=== PATIENT | male | born 1940 | race Caucasian/White ===

== ENCOUNTER → 2023-07-31 09:41 | Outpatient (REF) | payer MEDICARE, OTHER, SELFPAY ==
[2023-07-31 10:30] LABS: % Basophils 0.9 % (0-2); % Eosinophils 1.5 % (0-6); % Immature Granulocytes 0.5 % (0-0.5); % Lymphocytes 19.6 % (20.5-51.1); % Monocytes 9.4 % (1.7-9.3); % Neutrophils 68.1 % (42.2-75.2); Absolute Basophils 0.1 10^3/uL (0-0.2); Absolute Eosinophils 0.1 10^3/uL (0-0.7); Absolute Lymphocytes 1.5 10^3/uL (1.2-3.4); Absolute Monocytes 0.7 10^3/uL (0.1-0.6); Absolute Neutrophils 5.1 10^3/uL (1.4-6.5); Hematocrit 42.7 % (39.0-52.0); Hemoglobin 14.4 g/dL (13.0-18.0); Mean Corp Hgb Conc. 33.7 g/dL (33.0-37.0); Mean Corpuscular Hgb 31.2 pg (27.0-31.0); Mean Corpuscular Volume 92.4 fL (80.0-94.0); Mean Platelet Volume 9.5 fL (7.4-10.4); Nucleated Red Blood Cells % 0 % (-); Platelet Count 194 10^3/uL (130-400); Red Blood Cell Count 4.62 10^6/uL (4.70-6.10); Red Cell Dist. Width 12.9 % (11.5-14.5); White Blood Cell Count 7.5 10^3/uL (4.8-10.8)
[2023-07-31 11:03] LABS: ALT (SGPT) 31 U/L (0-50); AST (SGOT) 33 U/L (17-59); Alkaline Phosphatase 75 U/L (38-126); Blood Urea Nitrogen 37 mg/dl (9-20); Calcium 9.6 mg/dl (8.4-10.2); Carbon Dioxide 25 mmol/L (22-30); Chloride 102 mmol/L (98-107); Glucose 109 mg/dl (70-99); Potassium 4.2 mmol/L (3.5-5.1); Sodium 135 mmol/L (135-145); Total Bilirubin 0.6 mg/dl (0.2-1.3); Total Protein 6.1 g/dl (6.3-8.2); eGFR 39.75
[2023-07-31 11:14] LABS: Erythrocyte Sed Rate 14 mm/hour (0-20)
== END ==
LOC: REG 09:41
PROVIDERS: ATTENDING PHYSICIAN Internal Medicine; FAMILY PHYSICIAN Family Medicine
DX: M35.3 Polymyalgia rheumatica (principal); Z51.81 Encounter for therapeutic drug level monitoring
CPT/HCPCS: 36415; 80053; 85025; 85652; 86140

== ENCOUNTER → 2023-08-06 07:31 | Outpatient (REF) | payer MEDICARE, OTHER, SELFPAY | LOC: EMG 07:31 | PROVIDERS: ATTENDING PHYSICIAN Nurse Practitioner Family; FAMILY PHYSICIAN Family Medicine | DX: R20.2 Paresthesia of skin (principal); R20.0 Anesthesia of skin | CPT/HCPCS: 95886; 95911 ==

== ENCOUNTER → 2023-08-06 10:33 | Outpatient (REF) | payer MEDICARE, OTHER, SELFPAY | LOC: RAD 10:33 | PROVIDERS: ATTENDING PHYSICIAN Nurse Practitioner Family | DX: M25.471 Effusion, right ankle (principal) | CPT/HCPCS: 73610 ==

== ENCOUNTER → 2023-09-01 10:41 | Outpatient (REF) | payer MEDICARE, OTHER, SELFPAY ==
[2023-09-01 10:13] LABS: ALT (SGPT) 29 U/L (0-50); AST (SGOT) 35 U/L (17-59); Albumin 4.4 g/dl (3.5-5.0); Alkaline Phosphatase 71 U/L (38-126); Blood Urea Nitrogen 36 mg/dl (9-20); Carbon Dioxide 25 mmol/L (22-30); Chloride 102 mmol/L (98-107); Glucose 111 mg/dl (70-99); Potassium 4.9 mmol/L (3.5-5.1); Sodium 137 mmol/L (135-145); Total Bilirubin 0.9 mg/dl (0.2-1.3); Total Protein 6.8 g/dl (6.3-8.2); eGFR 34.79
[2023-09-01 10:53] LABS: TSH 0.58 uIU/ml (0.47-4.68)
== END ==
LOC: PAVMRI 10:41
PROVIDERS: ATTENDING PHYSICIAN Nurse Practitioner Family; FAMILY PHYSICIAN Family Medicine; OTHER PHYSICIAN Emergency Medicine Emergency Medical Services; REFERRING PHYSICIAN Internal Medicine Endocrinology, Diabetes & Metabolism
DX: R20.2 Paresthesia of skin (principal); M51.36 Other intervertebral disc degeneration, lumbar region; M19.90 Unspecified osteoarthritis, unspecified site; R73.03 Prediabetes; E06.3 Autoimmune thyroiditis
CPT/HCPCS: 36415; 72158; 72197; 73630; 80053; 83036; 84443; A9575

== ENCOUNTER → 2023-10-06 11:07 | Outpatient (REF) | payer MEDICARE, OTHER, SELFPAY ==
[2023-10-06 12:09] LABS: Hematocrit 45.3 % (39.0-52.0); Hemoglobin 15.3 g/dL (13.0-18.0)
[2023-10-06 12:33] LABS: Albumin 4.2 g/dl (3.5-5.0); Blood Urea Nitrogen 33 mg/dl (9-20); Calcium 9.4 mg/dl (8.4-10.2); Carbon Dioxide 22 mmol/L (22-30); Chloride 108 mmol/L (98-107); Glucose 209 mg/dl (70-99); Magnesium 1.8 mg/dl (1.6-2.3); Phosphorus 3.1 mg/dl (2.5-4.5); Potassium 3.9 mmol/L (3.5-5.1); Sodium 139 mmol/L (135-145); eGFR 45.91
[2023-10-06 12:57] LABS: Intact PTH 40.1 pg/ml (13.6-85.8)
[2023-10-06 13:05] LABS: Protein/creatinine Ratio 0.2; Urine Protein 14 mg/dl
== END ==
LOC: REG 11:07
PROVIDERS: ATTENDING PHYSICIAN Specialist; FAMILY PHYSICIAN Family Medicine
DX: R79.89 Other specified abnormal findings of blood chemistry (principal)
CPT/HCPCS: 36415; 80069; 82570; 83735; 83970; 84156; 85014; 85018

== ENCOUNTER 2023-11-04 20:48 | Emergency (ER) | payer MEDICARE, OTHER, SELFPAY ==
[2023-11-04 20:58] VITALS: BMI 24.4
[2023-11-04 21:00] VITALS: BP 173/82
--- NOTE | 2023-11-04 21:06 | ED.GENMED ---
History of Present Illness
General
Chief Complaint: Male Genito-Urinary Symptoms
Time Seen by Provider: 11/04/23 20:54
History of Present Illness
History of Present Illness:
HPI: The patient presents with left-sided testicular pain. The pain radiates toward the left inguinal region. He has had no fevers or chills. This started around 4 PM today. He has no other significant symptoms.
EXAM:
GENERAL: Well appearing in no distress
HEENT: Moist oral mucosa
ABDOMEN: Soft with no peritoneal signs, no tenderness
: There is moderate testicular and left epididymal tenderness, there is some very mild tenderness in the left inguinal region with no palpable hernia
NEUROLOGIC: Good strength all extremities, no coordination deficits,
PSYCHIATRIC: Appropriate mental status, normal insight and judgement, mild cognitive deficits noted
EXTREMITIES: Nontender, no edema, moves all extremities equally
SKIN: No rash, no lesions
TIME OF INITIAL ENCOUNTER: 9 PM
NUMBER AND COMPLEXITY OF PROBLEMS ADDRESSED AT THE ENCOUNTER
� Chronic conditions affecting care: Dementia, aortic stenosis, atrial fibrillation, cardiomyopathy, CAD, CKD
� Acute Exacerbation and/or Progression of Chronic Illness: This is an acute problem
� Differential Diagnosis includes: Epididymitis, orchitis, testicular torsion unlikely, hydrocele, varicocele
AMOUNT AND/OR COMPLEXITY OF DATA TO BE REVIEWED AND ANALYZED
� I performed an independent evaluation of and my interpretation is:
EKG:
CT:
X-rays:
Laboratory Studies:
Other: Ultrasound imaging shows evidence of epididymitis
� Review of other/old records: I reviewed old records, GFR ranges between 30s and 40s
� Clinical information was obtained by an independent historian: I spoke to his daughter at bedside
� Prescriptions/Medications Considered but not given: Considered quinolone however the patient is still on Coumadin and has impaired renal function
� Further testing considered but not performed:
RISK OF COMPLICATIONS AND/OR MORBIDITY OR MORTALITY OF PATIENT MANAGEMENT
� Social determinants of health affecting care: Lives at home
� Discussion with other providers:
� Escalation of care including admission/observation vs risk of discharge considered: Exam and imaging consistent with epididymitis. Will start doxycycline.
Past History
Past History
ED Past Medical History: Arrthythmia (Atrial fibrillation), CAD, CVA, HTN, Hypercholesterolemia, Renal failure, Hypothyroidism and Other (Kidney stones, sleep apnea, aortic valve replacement, diverticulosis)
ED Past Surgical History: Cardiac (Aortic valve replacement)
Social History
Tobacco: Non-smoker
Alcohol: None
Drug: None
Personal:
Living: with family
Employment: Retired (emergency department physician)
Family History
Family History: Other (Reviewed and Noncontributory)
Phy Exam
Physical Exam
Physical Exam:
See HPI
Course
Orders/Labs/Results
Orders:
Orders
11/04/23 20:55
US Scrotum Urgent
Comment:
Reason For Exam: pain
11/04/23 22:05
Doxycycline [Vibramycin] 100 mg PO NOW STA
Vital Signs
Initial and Last Documented VS:
Initial Vital Signs
Pulse Resp
62 14
11/04/23 20:57 11/04/23 20:57
Last Documented Vital Signs
Pulse Resp BP Pulse Ox
79 19 173/82 99
11/04/23 21:00 11/04/23 21:00 11/04/23 21:00 11/04/23 21:00
*Critical Care Note
Total Time (30-74mins, 75-104mins- exclusive of procedures): Not Applicable
ED Attending Note
-
Portions of this chart may have been created with voice recognition software.� Occasional wrong word or��sound alike� substitutions may have occurred due to the inherent limitations of voice recognition software.
Discharge Plan
Departure
Patient Disposition: Home (Routine Discharge)
Date of Disposition: 11/04/23
Time of Disposition: 22:08
Patient with high blood pressure during this ER visit?: Yes
Discharge Problem:
Acute epididymitis
Instructions: Epididymitis and orchitis
Prescriptions:
New
doxycycline monohydrate 100 mg tablet
100 mg PO BID Qty: 14 0RF
No Action
allopurinol 100 MG tablet
300 mg PO DAILY
diltiazem HCl 120 MG capsule,extended release 12 hr
120 mg PO BID
colchicine [Colcrys] 0.6 MG tablet
0.6 mg PO PRN PRN (Reason: gout flare)
cholecalciferol (vitamin D3) [Vitamin D3] 1,000 UNIT capsule
4,000 unit PO DAILY
tamsulosin [Flomax] 0.4 mg Capsule
0.4 mg PO DAILY
levothyroxine [Synthroid] 125 mcg Tablet
125 mcg PO DAILY
warfarin 2 mg Tablet
2 mg PO DAILY
Repatha Syringe 140 mg/mL Syringe
140 mg SC Q2W
Rx Instructions:
Next dose 10/23/2022
hydrocodone-acetaminophen 5-325 mg Tablet
1 tab PO Q6H PRN (Reason: back pain)
enoxaparin [Lovenox] 80 mg/0.8 mL Syringe
80 mg SC DAILY
Rx Instructions:
started this medication just for surgery
polyethylene glycol 3350 [Miralax] 17 gram/dose powder
4 g PO DAILY PRN (Reason: Constipation) Qty: 119 0RF
acetaminophen [Tylenol Extra Strength] 500 mg tablet
1,000 mg PO Q6HPRN PRN (Reason: mild pain) Qty: 1 0RF
Referrals:
Baldemar Keller MD [Active] - Follow up in 2-3 days
Activity Restrictions/Additional Instructions:
Ultrasound imaging shows evidence of mild epididymitis. I am placing on doxycycline. Return here if worse. I have given you the contact information for local urologist.
Interventions
Interventions:
*General Assessment Last Done: 11/04/23 21:02
Discharge Date and Time
Print Language: ROMANIAN
[2023-11-04] MEDS: VIBRAMYCIN 100 MG PO (22:19)
[2023-11-04 22:21] VITALS: BP 167/91
[2023-11-04 22:40] VITALS: BP 167/91
== END 2023-11-04 22:42 | disposition home or self-care (01) ==
LOC: EMR 20:48
PROVIDERS: EMERGENCY PHYSICIAN Emergency Medicine; FAMILY PHYSICIAN Family Medicine
DX: N45.1 Epididymitis (principal); E03.9 Hypothyroidism, unspecified; E78.00 Pure hypercholesterolemia, unspecified; G47.30 Sleep apnea, unspecified; I12.9 Hypertensive chronic kidney disease with stage 1 through stage 4 chronic kidney disease, or unspecified chronic kidney disease; N18.9 Chronic kidney disease, unspecified; I25.10 Atherosclerotic heart disease of native coronary artery without angina pectoris; I48.91 Unspecified atrial fibrillation; Z86.73 Personal history of transient ischemic attack (TIA), and cerebral infarction without residual deficits; Z87.442 Personal history of urinary calculi; Z95.2 Presence of prosthetic heart valve
CPT/HCPCS: 99284; 76870; 93976

== ENCOUNTER → 2023-12-03 11:15 | Outpatient (REF) | payer MEDICARE, OTHER, SELFPAY | LOC: HWRCS 11:15 | PROVIDERS: ATTENDING PHYSICIAN Internal Medicine Cardiovascular Disease; FAMILY PHYSICIAN Family Medicine | DX: I10 Essential (primary) hypertension (principal); R07.9 Chest pain, unspecified | CPT/HCPCS: 93306 ==

== ENCOUNTER 2023-12-09 10:27 | Emergency (ER) | payer MEDICARE, OTHER, SELFPAY ==
[2023-12-09 10:36] VITALS: BP 176/97
--- NOTE | 2023-12-09 11:24 | ED.GENMED ---
History of Present Illness
<Jimmy Alvarez, DO - Last Filed: 12/09/23 13:43>
General
Chief Complaint: Cardiac Symptoms
Source: patient
Exam Limitations: none
Time Seen by Provider: 12/09/23 11:03
History of Present Illness
History of Present Illness:
See MDM
Past History
<Jimmy Alvarez, DO - Last Filed: 12/09/23 13:43>
Past History
ED Past Medical History: Arrthythmia (Atrial fibrillation), CAD, CVA, HTN, Hypercholesterolemia, Renal failure, Hypothyroidism and Other (Kidney stones, sleep apnea, aortic valve replacement, diverticulosis)
ED Past Surgical History: Cardiac (Aortic valve replacement)
Social History
Tobacco: Non-smoker
Alcohol: None
Drug: None
Personal:
Living: with family
Employment: Retired (emergency department physician)
Family History
Family History: Other (Reviewed and Noncontributory)
Phy Exam
<Jimmy Alvarez, DO - Last Filed: 12/09/23 13:43>
Physical Exam
Physical Exam:
See MDM
Course
<Jimmy Alvarez, DO - Last Filed: 12/09/23 13:43>
Orders/Labs/Results
Orders:
Orders
12/09/23 10:29
Electrocardiogram (*1) Urgent
Reason for Study: Tachycardia
12/09/23 10:30
EKG- Treatment ONCE
12/09/23 11:28
Consult Cardiology [CARDIOLOGY CONSULT] Urgent
Consulting Provider: Orville Painting
Was physician already notified: Yes
12/09/23 11:35
Complete Blood Count/With Diff Urgent
Comprehensive Metabolic Panel Urgent
PTT Urgent
Prothrombin Time Urgent
Troponin I Urgent
12/09/23 14:06
Troponin I Urgent
Abnormal Lab Results
12/09/23
11:35
MCH 31.2 H pg
(27.0-31.0)
Abs Immat Gran (auto) 0.1 H 10^3/uL
(0-0.05)
Absolute Neuts (auto) 8.4 H 10^3/uL
(1.4-6.5)
Absolute Lymphs (auto) 1.1 L 10^3/uL
(1.2-3.4)
Absolute Monos (auto) 0.8 H 10^3/uL
(0.1-0.6)
Immature Gran % 1.1 H %
(0-0.5)
Neutrophils % 79.6 H %
(42.2-75.2)
Lymphocytes % 10.2 L %
(20.5-51.1)
PT 24.5 H Sec
(11.4-14.6)
APTT 43.3 H Sec
(23.4-35.0)
Potassium 5.2 H mmol/L
(3.5-5.1)
BUN 44 H mg/dl
(9-20)
Creatinine 1.7 H mg/dL
(0.7-1.3)
Glucose 131 H mg/dl
(70-99)
ALT 58 H U/L
(0-50)
12/09/23 11:35
12/09/23 11:35
Vital Signs
Initial and Last Documented VS:
Initial Vital Signs
Temp Pulse Resp BP Pulse Ox
98.1 F 79 18 176/97 98
12/09/23 10:36 12/09/23 10:36 12/09/23 10:36 12/09/23 10:36 12/09/23 10:36
Last Documented Vital Signs
Temp Pulse Resp BP Pulse Ox
98.1 F 95 18 164/81 96
12/09/23 10:36 12/09/23 14:54 12/09/23 14:54 12/09/23 14:54 12/09/23 14:54
<Scottie Wells, DO - Last Filed: 12/09/23 14:59>
Orders/Labs/Results
Orders:
Orders
12/09/23 10:29
Electrocardiogram (*1) Urgent
Reason for Study: Tachycardia
12/09/23 10:30
EKG- Treatment ONCE
12/09/23 11:28
Consult Cardiology [CARDIOLOGY CONSULT] Urgent
Consulting Provider: Orville Painting
Was physician already notified: Yes
12/09/23 11:35
Complete Blood Count/With Diff Urgent
Comprehensive Metabolic Panel Urgent
PTT Urgent
Prothrombin Time Urgent
Troponin I Urgent
12/09/23 14:06
Troponin I Urgent
Abnormal Lab Results
12/09/23
11:35
MCH 31.2 H pg
(27.0-31.0)
Abs Immat Gran (auto) 0.1 H 10^3/uL
(0-0.05)
Absolute Neuts (auto) 8.4 H 10^3/uL
(1.4-6.5)
Absolute Lymphs (auto) 1.1 L 10^3/uL
(1.2-3.4)
Absolute Monos (auto) 0.8 H 10^3/uL
(0.1-0.6)
Immature Gran % 1.1 H %
(0-0.5)
Neutrophils % 79.6 H %
(42.2-75.2)
Lymphocytes % 10.2 L %
(20.5-51.1)
PT 24.5 H Sec
(11.4-14.6)
APTT 43.3 H Sec
(23.4-35.0)
Potassium 5.2 H mmol/L
(3.5-5.1)
BUN 44 H mg/dl
(9-20)
Creatinine 1.7 H mg/dL
(0.7-1.3)
Glucose 131 H mg/dl
(70-99)
ALT 58 H U/L
(0-50)
12/09/23 11:35
12/09/23 11:35
Vital Signs
Initial and Last Documented VS:
Initial Vital Signs
Temp Pulse Resp BP Pulse Ox
98.1 F 79 18 176/97 98
12/09/23 10:36 12/09/23 10:36 12/09/23 10:36 12/09/23 10:36 12/09/23 10:36
Last Documented Vital Signs
Temp Pulse Resp BP Pulse Ox
98.1 F 95 18 164/81 96
12/09/23 10:36 12/09/23 14:54 12/09/23 14:54 12/09/23 14:54 12/09/23 14:54
<Jimmy Alvarez, DO - Last Filed: 12/09/23 13:43>
MDM/Problems Addressed
Differential Diagnosis Includes:
HPI and MDM Narrative:
83-year-old male presenting for evaluation of exertional dyspnea. Patient admits that he has not been feeling well for a few weeks now. He does have a history of SVT, A-fib and CABG. Him and his profile trimmer are performing the outpatient workup.
He had an echo recently last week. He has a loop recorder and he is due for cardiac stress test tomorrow. However, patient became winded while walking the dog. He felt his heart rate go up. Once symptoms start to resolve, he walked home and felt
even worse. He came in for evaluation.
EKG is sinus rhythm. Patient appears comfortable. It is uncertain whether or not he is feeling his own stress test while walking or this is A-fib or SVT related. Regardless, obtain basic blood work and have cardiology evaluate
Physical exam
General: Well appearing and non-toxic
HEENT: protecting airway
Neck: appears supple
CV: No evidence of cyanosis. Regular rate and rhythm
Resp: No accessory muscle use. Lungs clear
Abd: Non-distended
Extremities: No deformities. No leg edema
Neuro: alert
Psych: Normal affect
Skin: Intact
Problems Addressed including Acute and Chronic Conditions affecting care:
1. Exertional dyspnea and tachycardia
Acuity: acute
Prognosis: stable
Details: Unsure if this is A-fib related or possibly coronary artery disease. He does have past medical history of both. Will have cardiology evaluate
Updates
Throughout his stay, patient in a sinus rhythm and symptom-free. Will have cardiology evaluate
Differential Diagnosis (but not limited to): A-fib, SVT, CAD
Testing considered: D-dimer but he is anticoagulated
Drug therapy (if applicable): OTC meds, please see d/c instruction regarding Rx drugs
Amount and/or Complexity of Data Reviewed
Clinical info obtained from: Patient
External data reviewed: N/A
Labs I independently reviewed (but not limited to): Troponin within normal limits
Radiology: N/A
Pulse Ox: not hypoxic
EKG independently reviewed: Sinus rhythm, right bundle branch block, no STEMI
Rn Transitional Care: Sinus rhythm
Critical Care: N/A
Risk of Complication:
Social Determinants of health: Good social support
Discussed with other providers: Cardiology
Escalation of Care includes Admit/Obs: After being observed in the Emergency Department, pt stable for discharge.
Occasional wrong word or 'sound a like' substitutions may have occurred due to the inherent limitations of voice recognition software. Read the chart carefully and recognize, using context, where substitutions have occurred.
<Jimmy Alvarez, DO - Last Filed: 12/09/23 13:43>
*Critical Care Note
Total Time (30-74mins, 75-104mins- exclusive of procedures): Not Applicable
<Scottie Wells, DO - Last Filed: 12/09/23 14:59>
Update Note
Update Note:
Patient seen by cardiology. Adjustments were made to his medication. Patient is to have a stress test tomorrow. Patient's loop recorder was interrogated and found to be fine. Patient will be discharged
ED Attending Note
<Jimmy Alvarez, DO - Last Filed: 12/09/23 13:43>
-
Portions of this chart may have been created with voice recognition software.� Occasional wrong word or��sound alike� substitutions may have occurred due to the inherent limitations of voice recognition software.
Discharge Plan
Departure
Patient Disposition: Home (Routine Discharge)
Date of Disposition: 12/09/23
Time of Disposition: 14:58
Patient with high blood pressure during this ER visit?: Yes
Condition: Fair
Covid-19: Not Applicable
Discharge Problem:
Exertional dyspnea, Tachycardia
Instructions: BLOOD PRESSURE
Prescriptions:
No Action
allopurinol 100 MG tablet
300 mg PO DAILY
diltiazem HCl 120 MG capsule,extended release 12 hr
120 mg PO BID
colchicine [Colcrys] 0.6 MG tablet
0.6 mg PO PRN PRN (Reason: gout flare)
cholecalciferol (vitamin D3) [Vitamin D3] 1,000 UNIT capsule
4,000 unit PO DAILY
tamsulosin [Flomax] 0.4 mg Capsule
0.4 mg PO DAILY
levothyroxine [Synthroid] 125 mcg Tablet
125 mcg PO DAILY
warfarin 2 mg Tablet
2 mg PO DAILY
Repatha Syringe 140 mg/mL Syringe
140 mg SC Q2W
Rx Instructions:
Next dose 10/23/2022
hydrocodone-acetaminophen 5-325 mg Tablet
1 tab PO Q6H PRN (Reason: back pain)
enoxaparin [Lovenox] 80 mg/0.8 mL Syringe
80 mg SC DAILY
Rx Instructions:
started this medication just for surgery
polyethylene glycol 3350 [Miralax] 17 gram/dose powder
4 g PO DAILY PRN (Reason: Constipation) Qty: 119 0RF
acetaminophen [Tylenol Extra Strength] 500 mg tablet
1,000 mg PO Q6HPRN PRN (Reason: mild pain) Qty: 1 0RF
doxycycline monohydrate 100 mg tablet
100 mg PO BID Qty: 14 0RF
Referrals:
Scottie Kapadia, DO [Family Provider] - As needed
Activity Restrictions/Additional Instructions:
Follow instructions by cardiology and have your stress test done tomorrow as scheduled.
Interventions
Interventions:
*Risk Screen - Suicide Last Done: 12/09/23 12:00
*General Assessment Last Done: 12/09/23 12:00
*Neglect/Abuse Screening Last Done: 12/09/23 12:00
ED- Pulmonary Assessment Last Done: 12/09/23 12:00
ED- Cardiac Assessment Last Done: 12/09/23 12:00
Discharge Date and Time
Print Language: ITALIAN
[2023-12-09 11:45] VITALS: BP 131/73
[2023-12-09 11:53] LABS: % Basophils 0.7 % (0-2); % Eosinophils 0.7 % (0-6); % Immature Granulocytes 1.1 % (0-0.5); % Lymphocytes 10.2 % (20.5-51.1); % Monocytes 7.7 % (1.7-9.3); % Neutrophils 79.6 % (42.2-75.2); Absolute Basophils 0.1 10^3/uL (0-0.2); Absolute Eosinophils 0.1 10^3/uL (0-0.7); Absolute Immature Granulocytes 0.1 10^3/uL (0-0.05); Absolute Lymphocytes 1.1 10^3/uL (1.2-3.4); Absolute Monocytes 0.8 10^3/uL (0.1-0.6); Absolute Neutrophils 8.4 10^3/uL (1.4-6.5); Hematocrit 44.2 % (39.0-52.0); Hemoglobin 15.3 g/dL (13.0-18.0); Mean Corp Hgb Conc. 34.6 g/dL (33.0-37.0); Mean Corpuscular Hgb 31.2 pg (27.0-31.0); Mean Platelet Volume 9.3 fL (7.4-10.4); Nucleated Red Blood Cells % 0 % (-); Platelet Count 170 10^3/uL (130-400); Red Blood Cell Count 4.91 10^6/uL (4.70-6.10); Red Cell Dist. Width 13.6 % (11.5-14.5); White Blood Cell Count 10.5 10^3/uL (4.8-10.8)
[2023-12-09 11:58] LABS: INR 2.18; PT 24.5 Sec (11.4-14.6)
[2023-12-09 11:59] LABS: APTT 43.3 Sec (23.4-35.0)
[2023-12-09 12:03] LABS: ALT (SGPT) 58 U/L (0-50); AST (SGOT) 40 U/L (17-59); Albumin 4.4 g/dl (3.5-5.0); Alkaline Phosphatase 67 U/L (38-126); Blood Urea Nitrogen 44 mg/dl (9-20); Calcium 9.9 mg/dl (8.4-10.2); Carbon Dioxide 26 mmol/L (22-30); Chloride 102 mmol/L (98-107); Glucose 131 mg/dl (70-99); Potassium 5.2 mmol/L (3.5-5.1); Sodium 139 mmol/L (135-145); Total Bilirubin 0.8 mg/dl (0.2-1.3); Total Protein 6.4 g/dl (6.3-8.2); eGFR 39.51
[2023-12-09 12:05] VITALS: BP 131/72
[2023-12-09 12:14] LABS: Troponin I 0.024 ng/ml
[2023-12-09 12:24] VITALS: BMI 25.2
[2023-12-09 13:00] VITALS: BP 141/79
[2023-12-09 14:00] VITALS: BP 147/77
[2023-12-09 14:41] LABS: Troponin I 0.012 ng/ml
[2023-12-09 14:54] VITALS: BP 164/81
--- NOTE | 2023-12-09 15:04 | CON.CAR ---
Addendum entered and electronically signed by Orville Painting MD 12/09/23 16:13:
I saw and examined the patient.
The Fine Arts Chair's note was reviewed and I agree with the note.
Comment:
GEN: No distress, awake, Ox3
HEENT: supple, anicteric, mmm
LUNGS: CTA, no wheezes/rales
CV: Reg, S1/S2, 1/6 syst LSB, no gallop
ABD: soft, BS+, NT/ND
EXT: No edema
NEURO: Gross non-focal
SKIN: No rash
Plan: He has a past medical history of AVR/CABG in 2010 along with paroxysmal atrial fibrillation. He presents today with palpitations, fatigue, and the leg aches while walking today. He denies any chest pains. 1 week ago he was started on
amlodipine 5 mg daily in addition to his usual dose of Cardizem. Echocardiogram had been performed this week and he is scheduled for a nuclear stress test December 10, 2023.
Cardi troponins are negative x 2. We interrogated his jot device which reveals no significant tachycardia events. He states his Fitbit was telling him his heart rate was elevated.
His blood pressure was low earlier today. We agreed to decrease his amlodipine to 2.5 mg daily and see if this helps his symptoms.
Continue medical therapy for coronary arteries for now. Continue warfarin, diltiazem and lower dose of amlodipine.
Continue Repatha for lipids.
Original Note:
Consultation
Consultation Request
Date/Time Consultation Requested: 12/09/23
Date/Time Consultation Performed: 12/09/23
Requesting Provider: Dr. Dial
Performing Provider: Dr. Painting
Reason for Consultation: Chest pain, elevated Troponin
Medical History
-
History of Present Illness:
Patient came to [facility] today after an episode of heart racing and feeling very unwell, cardiology consulted. Patient called the cardiology office 12/01/23 to report episodes of chest pain happening at rest and with exertion. Patient also reported HTN
home BP readings at that time. Dr. Zarco started patient on amlodipine 5 mg daily in addition to his usual dose of Cardizem CD 120 mg daily. Patient also had an echo as noted above. Patient scheduled for stress test 12/10/23. Patient checked his BP
before going on his walk this morning and it was 102/52 which is lower than usual. Patient then went on his walk and he suddenly felt unwell and checked his Fit Bit watch that read a HR of 177 bpm. Patient sat and rested and HR dropped to 77 bpm and
he felt better. Patient tried to walk again and HR went up to 180 bpm and he felt poorly again. Patient came to [facility]. Initial Troponin 0.024. ECG is SR. Patient with a h/o paroxysmal Afib and has a JOT in place from 11/2021.
PMH:
h/o HTN
Paroxysmal Afib
s/p PVI 05/25/18
Chronic warfarin OAC managed by [facility]
CAD s/p CABG DOLAN to LAD 01/28/11
s/p bioprosthetic aortic valve replacement 01/28/11
Gout
HTN
HLD
CKD stage 3
h/o CVA
PVCs
hypothyroidism
PMR
chronic RBBB
hx of remote CVA (right MCA)
Past Medical History
Past Medical History: Other (in HPI)
Past Surgical History: Cardiac (CABG and tissue AVR 2010, PVI 2018, [facility] JOT 12/23/21), Orthopedic and Tonsilectomy
Social History
Tobacco: Non-Smoker
Alcohol: None
Drug: None
Personal:
Living: With Family
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
Family History
Family History: CAD
Allergies / Home Medications
Allergy/AdvReac Type Severity Reaction Status Date / Time
pramipexole [From Mirapex] Allergy Confusion Verified 12/09/23 10:38
meperidine HCl [From Demerol] AdvReac Mild Nausea / Verified 12/09/23 10:38
Vomiting
�Medication �Instructions �Recorded �Confirmed �Type
allopurinol 100 mg tablet 300 mg PO DAILY 06/20/21 10/27/22 History
cholecalciferol (vitamin D3) 25 4,000 unit PO DAILY 06/20/21 10/27/22 History
mcg (1,000 unit) capsule (Vitamin
D3)
colchicine 0.6 mg tablet (Colcrys) 0.6 mg PO PRN PRN gout flare 06/20/21 10/27/22 History
diltiazem HCl 120 mg 120 mg PO BID 06/20/21 10/27/22 History
capsule,extended release 12 hr
tamsulosin 0.4 mg capsule (Flomax) 0.4 mg PO DAILY 08/10/22 10/27/22 History
evolocumab 140 mg/mL subcutaneous 140 mg SC Q2W 10/22/22 10/27/22 History
syringe (Repatha Syringe)
hydrocodone 5 mg-acetaminophen 325 1 tab PO Q6H PRN back pain 10/22/22 10/27/22 History
mg tablet
levothyroxine 125 mcg tablet 125 mcg PO DAILY 10/22/22 10/27/22 History
(Synthroid)
warfarin 2 mg tablet 2 mg PO DAILY 10/22/22 10/27/22 History
acetaminophen 500 mg tablet 1,000 mg (2 x 500 mg) PO Q6HPRN 10/27/22 Rx
(Tylenol Extra Strength) PRN mild pain #1 tab
enoxaparin 80 mg/0.8 mL 80 mg SC DAILY 10/27/22 10/27/22 History
subcutaneous syringe (Lovenox)
polyethylene glycol 3350 17 4 g PO DAILY PRN Constipation #119 10/27/22 Rx
gram/dose oral powder (Miralax) grams
doxycycline monohydrate 100 mg 100 mg PO BID #14 tabs 11/04/23 Rx
tablet
Review of Systems
-
History Source: Patient
All other systems: Negative unless noted
Physical Exam
Vital Signs
Temp Pulse Resp BP Pulse Ox
98.1 F 95 18 164/81 96
12/09/23 10:36 12/09/23 14:54 12/09/23 14:54 12/09/23 14:54 12/09/23 14:54
GEN: NAD. AAOx3
HEENT: EOMI, MMM
LUNGS: CTA B/L, no wheezes or rales
CV: Reg, S1/S2, no murmur
ABD: soft, BS+, NT, ND
EXT: No clubbing, cyanosis, lesions or edema B/L
NEURO: Gross non-focal
SKIN: Warm, dry and pink. No rash
Lab Results
12/09/23 11:35
12/09/23 11:35
Troponin I 0.012 ng/ml D 12/09/23 14:06
Impression / Plan
-
PCP: Dr. Kapadia
Primary Pit Inspector: Dr. IDALIA Zarco
Impression:
Palpitations, feeling ill 12/09/23
Hypotension
h/o HTN
Paroxysmal Afib
s/p PVI 05/25/18
Chronic warfarin OAC [facility] by [facility]
CAD s/p CABG DOLAN to LAD 01/28/11
s/p bioprosthetic aortic valve replacement 01/28/11
Gout
HTN
HLD
CKD stage 3
h/o CVA
PVCs
hypothyroidism
PMR
chronic RBBB
hx of remote CVA (right MCA)
Stress echo 12/2016: normal stress echo images, mild conc LVH, EF 60%, normal bioprosthetic aortic valve function, trace MR, 13 METS of activity, low risk study
Echo 11/21/19: EF 55-60%, normal RV size and function, mild MR, normal functioning bovine AVR with peak/mean 20/11 mmHg
Echo 12/03/23: 60-65%, mild conc LVH, normal RV size and function, mild MR, well seated tissue AVR peak/mean 21/13 mmHg and mild aortic regurgitation, mild TR with PAP 20-25 mmHg
PLAN:
-Patient came to [facility] today after an episode of heart racing and feeling very unwell, cardiology consulted. Patient called the cardiology office 12/01/23 to report episodes of chest pain happening at rest and with exertion. Patient also reported HTN
home BP readings at that time. Dr. Zarco started patient on amlodipine 5 mg daily in addition to his usual dose of Cardizem CD 120 mg daily. Patient also had an echo as noted above. Patient scheduled for stress test 12/10/23. Patient checked his BP
before going on his walk this morning and it was 102/52 which is lower than usual. Patient then went on his walk and he suddenly felt unwell and checked his Fit Bit watch that read a HR of 177 bpm. Patient sat and rested and HR dropped to 77 bpm and
he felt better. Patient tried to walk again and HR went up to 180 bpm and he felt poorly again. Patient came to [facility]. Initial Troponin 0.024. ECG is SR. Patient with a h/o paroxysmal Afib and has a JOT in place from 11/2021.
-[facility] rep able to check implanted loop recorder in the ER, no arrhythmia.
-BP stable throughout ER visit
-Decrease amlodipine to 2.5 mg daily.
-Keep outpatient stress test as scheduled for 12/10/23.
-Second Troponin down to 0.012. Patient can be d/c'd to home.
-Echo noted above
-Patient with a h/o paroxysmal Afib. He had 5 brief episodes of Afib with the longest lasting 50 minutes. INR therapeutic at 2.18.
== END 2023-12-09 15:05 | disposition home or self-care (01) ==
LOC: EMR 10:27
PROVIDERS: CONSULT PHYSICIAN Internal Medicine Cardiovascular Disease; EMERGENCY PHYSICIAN Student in an Organized Health Care Education/Training Program; FAMILY PHYSICIAN Family Medicine
DX: R06.09 Other forms of dyspnea (principal); I47.10 Supraventricular tachycardia, unspecified; I48.91 Unspecified atrial fibrillation; E03.9 Hypothyroidism, unspecified; E78.00 Pure hypercholesterolemia, unspecified; G47.30 Sleep apnea, unspecified; I12.9 Hypertensive chronic kidney disease with stage 1 through stage 4 chronic kidney disease, or unspecified chronic kidney disease; N18.30 Chronic kidney disease, stage 3 unspecified; I25.10 Atherosclerotic heart disease of native coronary artery without angina pectoris; Z79.01 Long term (current) use of anticoagulants; Z79.899 Other long term (current) drug therapy; Z82.49 Family history of ischemic heart disease and other diseases of the circulatory system; Z86.73 Personal history of transient ischemic attack (TIA), and cerebral infarction without residual deficits; Z87.442 Personal history of urinary calculi; Z95.1 Presence of aortocoronary bypass graft; Z95.3 Presence of xenogenic heart valve
CPT/HCPCS: 99283; 80053; 84484; 85025; 85610; 85730; 93005

== ENCOUNTER → 2023-12-10 06:25 | Outpatient (REF) | payer MEDICARE, OTHER, SELFPAY | LOC: RCS 06:25 | PROVIDERS: ATTENDING PHYSICIAN Internal Medicine Cardiovascular Disease; FAMILY PHYSICIAN Family Medicine | DX: I10 Essential (primary) hypertension (principal); R07.9 Chest pain, unspecified | CPT/HCPCS: 78452; 93017; A9500 ==

== ENCOUNTER → 2024-03-14 09:29 | Outpatient (REF) | payer MEDICARE, OTHER, SELFPAY ==
[2024-03-14 10:43] LABS: ALT (SGPT) 23 U/L (0-50); AST (SGOT) 24 U/L (17-59); Albumin 3.9 g/dl (3.5-5.0); Alkaline Phosphatase 60 U/L (38-126); Blood Urea Nitrogen 26 mg/dl (9-20); Calcium 9.2 mg/dl (8.4-10.2); Carbon Dioxide 25 mmol/L (22-30); Chloride 104 mmol/L (98-107); Glucose 105 mg/dl (70-99); HDL Cholesterol 43 mg/dl; LDL Cholesterol, Calculated 75 mg/dl; Potassium 4.3 mmol/L (3.5-5.1); Sodium 138 mmol/L (135-145); Total Bilirubin 0.7 mg/dl (0.2-1.3); Total Cholesterol 139 mg/dl (50-199); Triglyceride 105 mg/dl (10-149); Very Low Density Lipoprotein 21 mg/dl (0-30); eGFR 36.89
[2024-03-14 11:08] LABS: Glycohemoglobin (HgbA1c) 5.7 % (4.0-5.6)
[2024-03-14 11:14] LABS: TSH 0.78 uIU/ml (0.47-4.68)
== END ==
LOC: REG 09:29
PROVIDERS: ATTENDING PHYSICIAN Internal Medicine Endocrinology, Diabetes & Metabolism; FAMILY PHYSICIAN Family Medicine
DX: R73.03 Prediabetes (principal); E06.3 Autoimmune thyroiditis
CPT/HCPCS: 36415; 80053; 80061; 83036; 84443

== ENCOUNTER → 2024-03-18 07:34 | Outpatient (REF) | payer MEDICARE, OTHER, SELFPAY | LOC: MRI 07:34 | PROVIDERS: ATTENDING PHYSICIAN Radiology Diagnostic Radiology; FAMILY PHYSICIAN Family Medicine | DX: M54.16 Radiculopathy, lumbar region (principal); M25.551 Pain in right hip | CPT/HCPCS: 72148; 73721 ==

== ENCOUNTER → 2024-05-30 13:32 | Outpatient (REF) | payer MEDICARE, OTHER, SELFPAY ==
[2024-05-30 14:39] LABS: % Basophils 0.1 % (0-2); % Eosinophils 0.1 % (0-6); % Immature Granulocytes 0.9 % (0-0.5); % Lymphocytes 8.3 % (20.5-51.1); % Monocytes 5.5 % (1.7-9.3); % Neutrophils 85.1 % (42.2-75.2); Absolute Immature Granulocytes 0.1 10^3/uL (0-0.05); Absolute Lymphocytes 1.3 10^3/uL (1.2-3.4); Absolute Monocytes 0.8 10^3/uL (0.1-0.6); Absolute Neutrophils 12.9 10^3/uL (1.4-6.5); Hematocrit 46.4 % (39.0-52.0); Hemoglobin 15.7 g/dL (13.0-18.0); Mean Corp Hgb Conc. 33.8 g/dL (33.0-37.0); Mean Corpuscular Hgb 32.1 pg (27.0-31.0); Mean Corpuscular Volume 94.9 fL (80.0-94.0); Mean Platelet Volume 9.3 fL (7.4-10.4); Nucleated Red Blood Cells % 0 % (-); Platelet Count 166 10^3/uL (130-400); Red Blood Cell Count 4.89 10^6/uL (4.70-6.10); Red Cell Dist. Width 13.7 % (11.5-14.5); White Blood Cell Count 15.1 10^3/uL (4.8-10.8)
[2024-05-30 14:57] LABS: Erythrocyte Sed Rate 2 mm/hour (0-20)
[2024-05-30 15:05] LABS: ALT (SGPT) 25 U/L (0-50); AST (SGOT) 20 U/L (17-59); Albumin 3.9 g/dl (3.5-5.0); Alkaline Phosphatase 75 U/L (38-126); Blood Urea Nitrogen 50 mg/dl (9-20); Calcium 9.9 mg/dl (8.4-10.2); Carbon Dioxide 30 mmol/L (22-30); Chloride 101 mmol/L (98-107); Glucose 104 mg/dl (70-99); Potassium 5.1 mmol/L (3.5-5.1); Sodium 135 mmol/L (135-145); Total Bilirubin 1.3 mg/dl (0.2-1.3); Uric Acid 7.7 mg/dl (3.5-8.5); eGFR 42.49
[2024-05-30 15:08] LABS: C-Reactive Protein < 5.00 mg/L (0.0-10.00)
[2024-05-30 15:37] LABS: Hepatitis B Surface Antigen Negative (Negative)
[2024-05-30 15:55] LABS: Hepatitis B Core Ab, Total Negative (Negative); Hepatitis C Antibody Negative (Negative)
== END ==
LOC: REG 13:32
PROVIDERS: ATTENDING PHYSICIAN Internal Medicine; FAMILY PHYSICIAN Family Medicine
DX: K75.9 Inflammatory liver disease, unspecified (principal); M06.4 Inflammatory polyarthropathy; Z51.81 Encounter for therapeutic drug level monitoring; Z22.7 Latent tuberculosis
CPT/HCPCS: 36415; 80053; 84550; 85025; 85652; 86140; 86704; 86803; 87340

== ENCOUNTER → 2024-06-01 08:31 | Outpatient (REF) | payer MEDICARE, OTHER, SELFPAY ==
[2024-06-03 18:37] LABS: Quantiferon Mitogen minus NIL 6.76 IU/mL; Quantiferon TB Gold Plus Negative (Negative)
== END ==
LOC: REG 08:31
PROVIDERS: ATTENDING PHYSICIAN Internal Medicine; FAMILY PHYSICIAN Family Medicine
DX: K75.9 Inflammatory liver disease, unspecified (principal); M06.4 Inflammatory polyarthropathy; Z51.81 Encounter for therapeutic drug level monitoring; Z22.7 Latent tuberculosis; M10.9 Gout, unspecified
CPT/HCPCS: 36415; 86480

== ENCOUNTER → 2024-07-01 08:56 | Outpatient (REF) | payer MEDICARE, OTHER, SELFPAY ==
[2024-07-01 10:05] LABS: % Basophils 0.9 % (0-2); % Eosinophils 0.9 % (0-6); % Immature Granulocytes 1.8 % (0-0.5); % Lymphocytes 28.9 % (20.5-51.1); % Monocytes 8.4 % (1.7-9.3); % Neutrophils 59.1 % (42.2-75.2); Absolute Basophils 0.1 10^3/uL (0-0.2); Absolute Eosinophils 0.1 10^3/uL (0-0.7); Absolute Immature Granulocytes 0.1 10^3/uL (0-0.05); Absolute Lymphocytes 1.6 10^3/uL (1.2-3.4); Absolute Monocytes 0.5 10^3/uL (0.1-0.6); Absolute Neutrophils 3.2 10^3/uL (1.4-6.5); Hematocrit 43.8 % (39.0-52.0); Hemoglobin 14.6 g/dL (13.0-18.0); Mean Corp Hgb Conc. 33.3 g/dL (33.0-37.0); Mean Corpuscular Hgb 31.6 pg (27.0-31.0); Mean Corpuscular Volume 94.8 fL (80.0-94.0); Mean Platelet Volume 9.5 fL (7.4-10.4); Nucleated Red Blood Cells % 0 % (-); Platelet Count 145 10^3/uL (130-400); Red Blood Cell Count 4.62 10^6/uL (4.70-6.10); Red Cell Dist. Width 14.6 % (11.5-14.5); White Blood Cell Count 5.5 10^3/uL (4.8-10.8)
[2024-07-01 10:32] LABS: ALT (SGPT) 36 U/L (0-50); AST (SGOT) 24 U/L (17-59); Albumin 3.6 g/dl (3.5-5.0); Alkaline Phosphatase 70 U/L (38-126); Blood Urea Nitrogen 32 mg/dl (9-20); Calcium 9.1 mg/dl (8.4-10.2); Carbon Dioxide 29 mmol/L (22-30); Chloride 105 mmol/L (98-107); Glucose 112 mg/dl (70-99); Phosphorus 3.1 mg/dl (2.5-4.5); Potassium 4.5 mmol/L (3.5-5.1); Sodium 140 mmol/L (135-145); Total Bilirubin 0.5 mg/dl (0.2-1.3); Total Protein 5.6 g/dl (6.3-8.2); Uric Acid 8.6 mg/dl (3.5-8.5); eGFR 42.49
[2024-07-01 10:39] LABS: Protein/creatinine Ratio 0.1; Urine Protein 7 mg/dl
[2024-07-01 10:40] LABS: Erythrocyte Sed Rate 2 mm/hour (0-20)
[2024-07-01 10:53] LABS: Glycohemoglobin (HgbA1c) 6.2 % (4.0-5.6)
[2024-07-01 11:39] LABS: TSH 1.99 uIU/ml (0.47-4.68)
[2024-07-02 09:33] LABS: Intact PTH 73.6 pg/ml (13.6-85.8)
== END ==
LOC: REG 08:56
PROVIDERS: ATTENDING PHYSICIAN Internal Medicine Endocrinology, Diabetes & Metabolism; FAMILY PHYSICIAN Family Medicine; OTHER PHYSICIAN Internal Medicine; OTHER PHYSICIAN Specialist
DX: R73.03 Prediabetes (principal); E06.3 Autoimmune thyroiditis; Z51.81 Encounter for therapeutic drug level monitoring; M06.4 Inflammatory polyarthropathy; N18.32 Chronic kidney disease, stage 3b
CPT/HCPCS: 36415; 80053; 82570; 83036; 83970; 84100; 84156; 84443; 84550; 85025; 85652; 86140

== ENCOUNTER → 2024-07-19 10:56 | Outpatient (REF) | payer MEDICARE, OTHER, SELFPAY ==
[2024-07-19 13:12] LABS: C-Reactive Protein < 5.00 mg/L (0.0-10.00)
[2024-07-19 13:23] LABS: Erythrocyte Sed Rate 10 mm/hour (0-20)
== END ==
LOC: REG 10:56
PROVIDERS: ATTENDING PHYSICIAN Family Medicine; FAMILY PHYSICIAN Internal Medicine
DX: M35.3 Polymyalgia rheumatica (principal)
CPT/HCPCS: 36415; 85652; 86140

== ENCOUNTER → 2024-09-16 07:16 | Outpatient (REF) | payer MEDICARE, OTHER, SELFPAY ==
[2024-09-16 08:06] LABS: % Basophils 1.2 % (0-2); % Eosinophils 2.6 % (0-6); % Immature Granulocytes 0.3 % (0-0.5); % Lymphocytes 25.8 % (20.5-51.1); % Monocytes 10.9 % (1.7-9.3); % Neutrophils 59.2 % (42.2-75.2); Absolute Basophils 0.1 10^3/uL (0-0.2); Absolute Eosinophils 0.2 10^3/uL (0-0.7); Absolute Lymphocytes 1.7 10^3/uL (1.2-3.4); Absolute Monocytes 0.7 10^3/uL (0.1-0.6); Absolute Neutrophils 3.8 10^3/uL (1.4-6.5); Hematocrit 39.1 % (39.0-52.0); Hemoglobin 13.6 g/dL (13.0-18.0); Mean Corp Hgb Conc. 34.8 g/dL (33.0-37.0); Mean Corpuscular Hgb 31.9 pg (27.0-31.0); Mean Corpuscular Volume 91.8 fL (80.0-94.0); Mean Platelet Volume 9.5 fL (7.4-10.4); Nucleated Red Blood Cells % 0 % (-); Platelet Count 177 10^3/uL (130-400); Red Blood Cell Count 4.26 10^6/uL (4.70-6.10); Red Cell Dist. Width 11.9 % (11.5-14.5); White Blood Cell Count 6.4 10^3/uL (4.8-10.8)
[2024-09-16 08:13] LABS: Erythrocyte Sed Rate 10 mm/hour (0-20)
[2024-09-16 08:38] LABS: ALT (SGPT) 18 U/L (0-50); AST (SGOT) 22 U/L (17-59); Alkaline Phosphatase 70 U/L (38-126); Blood Urea Nitrogen 32 mg/dl (9-20); Calcium 9.7 mg/dl (8.4-10.2); Carbon Dioxide 23 mmol/L (22-30); Chloride 110 mmol/L (98-107); Glucose 118 mg/dl (70-99); Potassium 4.2 mmol/L (3.5-5.1); Sodium 140 mmol/L (135-145); Total Bilirubin 0.6 mg/dl (0.2-1.3); eGFR 32.51
[2024-09-16 09:05] LABS: Glycohemoglobin (HgbA1c) 5.7 % (4.0-5.6)
== END ==
LOC: REG 07:16
PROVIDERS: ATTENDING PHYSICIAN Internal Medicine Endocrinology, Diabetes & Metabolism; FAMILY PHYSICIAN Family Medicine; REFERRING PHYSICIAN Internal Medicine
DX: M35.9 Systemic involvement of connective tissue, unspecified (principal); M06.4 Inflammatory polyarthropathy; Z51.81 Encounter for therapeutic drug level monitoring; R73.03 Prediabetes; E06.3 Autoimmune thyroiditis
CPT/HCPCS: 36415; 80053; 83036; 84443; 85025; 85652; 86140

== ENCOUNTER → 2024-09-20 17:35 | Outpatient (REF) | payer MEDICARE, OTHER, SELFPAY ==
[2024-09-22 00:10] LABS: IgA 112 mg/dl (70-400); IgG 683 mg/dl (700-1600); IgM 50 mg/dl (40-230)
[2024-09-23 02:33] LABS: IgG Subclass 1 326 mg/dL (240-1118); IgG Subclass 2 190 mg/dL (124-549); IgG Subclass 3 30 mg/dL (21-134); IgG Subclass 4 32 mg/dL (1-123)
== END ==
LOC: CLAB 17:35
PROVIDERS: ATTENDING PHYSICIAN Family Medicine
DX: D80.1 Nonfamilial hypogammaglobulinemia (principal)
CPT/HCPCS: 36415; 82784; 82787

== ENCOUNTER → 2024-10-05 14:18 | Outpatient (REF) | payer MEDICARE, OTHER, SELFPAY | LOC: RAD 14:18 | PROVIDERS: ATTENDING PHYSICIAN Internal Medicine; FAMILY PHYSICIAN Family Medicine | DX: M81.0 Age-related osteoporosis without current pathological fracture (principal) | CPT/HCPCS: 77080 ==

== ENCOUNTER 2024-10-06 10:31 | Day surgery (SDC) | payer MEDICARE, OTHER, SELFPAY ==
[2024-10-06] VITALS (7 sets, daily range): BP systolic 118–140; BP diastolic 45–74; BMI 23.6
[2024-10-06 11:15] LABS: INR 2.64; PT 28.6 Sec (11.4-14.6)
--- NOTE | 2024-10-06 14:05 | ITS.CL.IMPLP ---
Basket Machine Operator - Implant Loop
Implant Loop
Procedure Report:
LINQ IMPLANTED MONITOR REMOVAL
Date of Procedure: October 06, 2024
Primary inletter: Dr. Luis Zarco
PROCEDURES:
1. Removal of implanted loop recorder
INDICATION FOR PROCEDURE:
1. Loop Recorder at end of battery longevity
After informed consent was obtained,'time out' was called and confirmed, the patient was prepped and draped in a sterile fashion.
SEDATION: Conscious sedation
Lidocaine with epi was used for local anesthesia. An incision was made along the prior incision and the Linq monitor was carefully dissected from the pocket. The pocket was liberally irrigated with antibiotic solution. The pocket was closed in
the typical fashion.
COMPLICATIONS:
None
CONCLUSIONS:
1. Removal of implanted loop recorder.
RECOMMENDATIONS:
Office wound check in 7 days
Copy to: Dr. Luis Zarco
== END 2024-10-06 15:07 | disposition home or self-care (01) ==
LOC: CATH 10:31
PROVIDERS: ATTENDING PHYSICIAN Internal Medicine Cardiovascular Disease; FAMILY PHYSICIAN Family Medicine; REFERRING PHYSICIAN Internal Medicine Cardiovascular Disease
DX: Z09 Encounter for follow-up examination after completed treatment for conditions other than malignant neoplasm (principal); Z95.2 Presence of prosthetic heart valve; I48.92 Unspecified atrial flutter; Z98.890 Other specified postprocedural states; E78.00 Pure hypercholesterolemia, unspecified; I12.9 Hypertensive chronic kidney disease with stage 1 through stage 4 chronic kidney disease, or unspecified chronic kidney disease; N18.30 Chronic kidney disease, stage 3 unspecified; M35.3 Polymyalgia rheumatica
CPT/HCPCS: 33286; 85610

== ENCOUNTER → 2024-10-08 08:41 | Outpatient (REF) | payer MEDICARE, OTHER, SELFPAY ==
[2024-10-08 09:38] LABS: Hematocrit 42.7 % (39.0-52.0); Hemoglobin 14.1 g/dL (13.0-18.0); Mean Corp Hgb Conc. 33.0 g/dL (33.0-37.0); Mean Corpuscular Volume 96.4 fL (80.0-94.0); Nucleated Red Blood Cells % 0 % (-); Platelet Count 107 10^3/uL (130-400); Red Cell Dist. Width 13.1 % (11.5-14.5)
[2024-10-08 10:01] LABS: ALT (SGPT) 46 U/L (0-50); AST (SGOT) 18 U/L (17-59); Albumin 4.1 g/dl (3.5-5.0); Alkaline Phosphatase 58 U/L (38-126); Blood Urea Nitrogen 46 mg/dl (9-20); Calcium 9.3 mg/dl (8.4-10.2); Carbon Dioxide 24 mmol/L (22-30); Chloride 108 mmol/L (98-107); Glucose 184 mg/dl (70-99); Potassium 5.2 mmol/L (3.5-5.1); Sodium 138 mmol/L (135-145); Total Protein 5.9 g/dl (6.3-8.2); eGFR 39.26
[2024-10-08 10:04] LABS: C-Reactive Protein < 5.00 mg/L (0.0-10.00)
[2024-10-08 10:34] LABS: TSH 0.17 uIU/ml (0.47-4.68)
== END ==
LOC: REG 08:41
PROVIDERS: ATTENDING PHYSICIAN Internal Medicine; FAMILY PHYSICIAN Family Medicine; REFERRING PHYSICIAN Internal Medicine Endocrinology, Diabetes & Metabolism
DX: M35.9 Systemic involvement of connective tissue, unspecified (principal); M06.4 Inflammatory polyarthropathy; Z51.81 Encounter for therapeutic drug level monitoring; R73.03 Prediabetes; E06.3 Autoimmune thyroiditis
CPT/HCPCS: 36415; 80053; 84443; 85025; 85652; 86140

== ENCOUNTER → 2024-10-15 10:09 | Outpatient (REF) | payer MEDICARE, OTHER, SELFPAY | LOC: RAD 10:09 | PROVIDERS: ATTENDING PHYSICIAN Radiology Diagnostic Radiology; FAMILY PHYSICIAN Family Medicine | DX: J18.9 Pneumonia, unspecified organism (principal) | CPT/HCPCS: 71046 ==

== ENCOUNTER → 2024-10-27 11:48 | Outpatient (REF) | payer MEDICARE, OTHER, SELFPAY ==
[2024-10-27 13:10] LABS: ALT (SGPT) 103 U/L (0-50); AST (SGOT) 22 U/L (17-59); Albumin 3.9 g/dl (3.5-5.0); Alkaline Phosphatase 53 U/L (38-126); HDL Cholesterol 81 mg/dl; LDL Cholesterol, Calculated 62 mg/dl; Total Protein 5.8 g/dl (6.3-8.2); Very Low Density Lipoprotein 20 mg/dl (0-30)
== END ==
LOC: REG 11:48
PROVIDERS: ATTENDING PHYSICIAN Internal Medicine Cardiovascular Disease
DX: E78.00 Pure hypercholesterolemia, unspecified (principal); I10 Essential (primary) hypertension
CPT/HCPCS: 36415; 80061; 80076

== ENCOUNTER 2024-11-02 10:14 | Day surgery (SDC) | payer MEDICARE, OTHER, SELFPAY ==
[2024-11-02 11:59] LABS: INR 2.54; PT 27.8 Sec (11.4-14.6)
== END 2024-11-02 13:09 | disposition home or self-care (01) ==
LOC: CATH 10:14
PROVIDERS: ATTENDING PHYSICIAN Internal Medicine Cardiovascular Disease; FAMILY PHYSICIAN Family Medicine; OTHER PHYSICIAN Internal Medicine Cardiovascular Disease
DX: I48.19 Other persistent atrial fibrillation (principal); Z95.1 Presence of aortocoronary bypass graft; Z95.3 Presence of xenogenic heart valve; Z79.01 Long term (current) use of anticoagulants
CPT/HCPCS: 85610; 92960; 93005

== ENCOUNTER → 2024-11-04 13:25 | Outpatient (REF) | payer MEDICARE, OTHER, SELFPAY ==
[2024-11-04 16:35] LABS: TSH 0.79 uIU/ml (0.47-4.68)
== END ==
LOC: REG 13:25
PROVIDERS: ATTENDING PHYSICIAN Family Medicine; FAMILY PHYSICIAN Family Medicine; OTHER PHYSICIAN Internal Medicine Endocrinology, Diabetes & Metabolism
DX: E03.9 Hypothyroidism, unspecified (principal)
CPT/HCPCS: 36415; 84436; 84443

== ENCOUNTER → 2024-11-08 07:01 | Outpatient (REF) | payer MEDICARE, OTHER, SELFPAY | LOC: HWRCS 07:01 | PROVIDERS: ATTENDING PHYSICIAN Internal Medicine Cardiovascular Disease; FAMILY PHYSICIAN Family Medicine | DX: I48.0 Paroxysmal atrial fibrillation (principal); I44.0 Atrioventricular block, first degree; Z95.3 Presence of xenogenic heart valve | CPT/HCPCS: 93306 ==

== ENCOUNTER 2024-11-18 06:40 | Day surgery (SDC) | payer MEDICARE, OTHER, SELFPAY ==
[2024-11-18 07:32] VITALS: BMI 24.7
== END 2024-11-18 09:38 | disposition home or self-care (01) ==
LOC: CATH 06:40
PROVIDERS: ATTENDING PHYSICIAN Internal Medicine Cardiovascular Disease; FAMILY PHYSICIAN Family Medicine; REFERRING PHYSICIAN Internal Medicine Cardiovascular Disease
DX: I48.0 Paroxysmal atrial fibrillation (principal); I25.10 Atherosclerotic heart disease of native coronary artery without angina pectoris; M48.10 Ankylosing hyperostosis [Forestier], site unspecified; I44.0 Atrioventricular block, first degree; E78.00 Pure hypercholesterolemia, unspecified; I12.9 Hypertensive chronic kidney disease with stage 1 through stage 4 chronic kidney disease, or unspecified chronic kidney disease; N18.30 Chronic kidney disease, stage 3 unspecified; Z86.73 Personal history of transient ischemic attack (TIA), and cerebral infarction without residual deficits; I08.3 Combined rheumatic disorders of mitral, aortic and tricuspid valves; Z95.3 Presence of xenogenic heart valve; I70.0 Atherosclerosis of aorta; Z79.01 Long term (current) use of anticoagulants; Z79.890 Hormone replacement therapy; Z79.899 Other long term (current) drug therapy
CPT/HCPCS: 93312; 93320; 93325

== ENCOUNTER 2024-11-22 09:47 | Day surgery (SDC) | payer MEDICARE, OTHER, SELFPAY ==
[2024-11-22] VITALS (14 sets, daily range): BP systolic 149–178; BP diastolic 56–107; BMI 24.6
--- NOTE | 2024-11-22 09:36 | CONSULT.STRU ---
Consultation
-
Date/Time Consultation Requested: 11/22/2024
Date/Time Consultation Performed: 11/22/2024
Requesting Provider: Luis An MD
Performing Provider: BLAIRE Reed
Reason for Consultation: /TAVR
Patient History
Physicians
Family Physician: Scottie Kapadia MD
Outpatient Mail Delivery Supervisor: Luis Zarco MD
Primary Mail Delivery Supervisor: Luis Zarco MD
History of Present Illness
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 His most recent echocardiogram from 11/08/2024 is notable for
bioprosthetic aortic valve moderate to severe AI, P/M 48/26, moderate MR, mild-moderate TR, PAP 58. From a symptomatic standpoint, patient describes feeling a little more tired than usual contributing it to afib. He denies DOHERTY, CP, PND, Dizziness,
or edema. Discussed the pathophysiology and treatment options of including re-op AVR and TAVR. Explained the evaluation process comprising of trending labs, chest CT, dental clearance, CT surgical consult, and a heart team discussion. TAVR
booklet, prescriptions, appointments, and contact information given to patient. Allowed for and answered questions to the best of my abililty.
Past Medical History
Past Medical History: Atrial Fib (PAf), CAD (hx of cabg), Covid-19, CVA/TIA, GERD, HTN, Hypercholesterolemia, Hypothyroidism, Valvular Disease (/AI of bioprosthetic AVR) and Other (RBBB, PMR, HCH, gout, fatty liver, pancreatic cysts, BPH, lyme
disease, petit mal seizures, carotid atherosclerosis, cognitive decline)
Past Surgical History
Past Surgical History: CABG, Orthopedic ((R) forearm surgery), Tonsilectomy, Valve (AVR) and Other (ablation, (R) inguinal hernia repair)
Dental History
Sukhjinder Benavides
Family History
Mother: at Age (56) and Cause of (alcoholism, cirrhosis)
Father: at Age (56) and Cause of (ID)
Family Medical History: Early CAD and CAD
Social History
Alcohol: Occasional
Drug: None
Tobacco: Non-Smoker
Personal:
Living: With Spouse
Employment: Retired
Allergies
Allergy/AdvReac Type Severity Reaction Status Date / Time
pramipexole (From Mirapex) Allergy Confusion Verified 11/18/24 07:33
meperidine HCl (From Demerol) AdvReac Mild Nausea / Verified 11/18/24 07:33
Vomiting
Home Medications
�Medication �Instructions �Recorded �Confirmed �Type
colchicine 0.6 mg tablet (Colcrys) 0.6 mg PO PRN PRN gout flare 06/20/21 11/18/24 History
diltiazem HCl 120 mg 120 mg PO BID 06/20/21 11/18/24 History
capsule,extended release 12 hr
tamsulosin 0.4 mg capsule (Flomax) 0.4 mg PO DAILY 08/10/22 11/18/24 History
evolocumab 140 mg/mL subcutaneous 140 mg SC Q2W 10/22/22 11/18/24 History
syringe (Repatha Syringe)
hydrocodone 5 mg-acetaminophen 325 1 tab PO Q6H PRN back pain 10/22/22 11/18/24 History
mg tablet
levothyroxine 125 mcg tablet 125 mcg PO DAILY 10/22/22 11/18/24 History
(Synthroid)
acetaminophen 500 mg tablet 1,000 mg (2 x 500 mg) PO Q6HPRN 10/27/22 11/18/24 Rx
(Tylenol Extra Strength) PRN mild pain #1 tab
donepezil 5 mg tablet (Aricept) 10 mg PO DAILY 10/06/24 11/18/24 History
methylprednisolone 2 mg tablet 2 mg PO QHS 10/06/24 11/18/24 History
methylprednisolone 4 mg tablet 4 mg PO DAILY 10/06/24 11/18/24 History
memantine 5 mg tablet 5 mg PO QPM 11/02/24 11/18/24 History
sildenafil (pulm.hypertension) 20 40 mg PO DAILY PRN htn 11/02/24 11/18/24 History
mg tablet
warfarin 1 mg tablet (Jantoven) 1 mg PO DAILY 11/02/24 11/18/24 History
STS%
STS %: 13.1
Review of Systems
-
History Source: Patient
General: Reports Fatigue
HEENT: Reports No Symptoms
Respiratory: Reports No Symptoms
Cardiac: Reports No Symptoms
Abdomen/GI: Reports No Symptoms
: Reports No Symptoms
Skin: Reports No Symptoms
Neurological: Reports No Symptoms
Vascular: Reports No Symptoms
Physical Exam
Diagnostic Studies
TTE 11/08/2024
SUMMARY
1. Top normal left ventricular size with preserved systolic function, EF 59-63%.
2. Thickened mitral leaflets, moderate mitral regurgitation, dilated left atrium.
3. Bioprosthetic aortic valve with moderate to severe or severe regurgitation. Peak and mean aortic valve gradients are 49 and 26 mmHg. Calculated valve area is 1.4 cm2. Gradients may reflect aortic regurgitation.
4. Mildly dilated right ventricle and atrium with preserved contractility. Pulmonary artery systolic pressure is 58 mmHg.
5. In November 2023 the aortic regurgitation was mild and mitral regurgitation was mild. The pulmonary artery systolic pressure was normal and the right ventricle was normal.
LEXIE 11/18/2024
SUMMARY
1. Normal left ventricular size, wall thickness and systolic function. No regional wall motion abnormalities are seen.
2. Right ventricular size and systolic function are within normal limits.
3. Bioprosthetic aortic valve with moderate to severe aortic regurgitation.
4. Moderate mitral regurgitation.
Procedure Type:�Isolated AVR
Perioperative Outcome Estimate %
Operative Mortality 13.1%
Morbidity & Mortality 33.9%
Stroke 6.03%
Renal Failure 7.46%
Reoperation 10%
Prolonged Ventilation 26.2%
Deep Sternal Wound Infection 0.162%
Long Hospital Stay (>14 days) 22%
Short Hospital Stay (<6 days)* 8.84%
Exam
General: Well Developed, Well Nourished, No Apparent Distress and Comfortable
HEENT: Normocephalic
Neck: Trachea Midline
Respiratory: Clear
Cardiac: Murmur (III/ MONICA)
GI: Non Tender and Non Distended
Rectal: Deferred by Provider
Skin: Warm and Dry
Neuro: Awake and Alert
Psych: Calm
Assessment / Plan
-
Aortic stenosis/ aortic insufficiency of bioprosthetic AVR
Trend creatinine after contrast
Chest CT scan (LE visualized with cath runnoff)
CT surgical consult
Frailty testing and KCCQ12 at CT surgical consult
Dental clearance
Will hold Jantoven x 3 days prior to TAVR
Heart team discussion
Data Reviewed
-
Precision Lens Grinder Apprentice: Report Reviewed by me and Discussed with Physician
Echo: Report Reviewed by me and Discussed with Physician
Labs: Labs Reviewed by me
Old Records: Reviewed
Total Time Spent with Patient (in minutes): 45
Labs
-
Labs:
WBC 10.1 10^3/uL (4.8-10.8) 11/22/24 10:12
RBC 4.89 10^6/uL (4.70-6.10) 11/22/24 10:12
Hgb 15.5 g/dL (13.0-18.0) 11/22/24 10:12
Hct 46.2 % (39.0-52.0) 11/22/24 10:12
Plt Count 128 10^3/uL (130-400) L 11/22/24 10:12
Sodium 140 mmol/L (135-145) 11/22/24 10:12
Potassium 4.3 mmol/L (3.5-5.1) 11/22/24 10:12
Chloride 107 mmol/L (98-107) 11/22/24 10:12
Carbon Dioxide 28 mmol/L (22-30) 11/22/24 10:12
BUN 32 mg/dl (9-20) H 11/22/24 10:12
Creatinine 1.4 mg/dL (0.7-1.3) H 11/22/24 10:12
eGFR 49.56 11/22/24 10:12
Glucose 113 mg/dl (70-99) H 11/22/24 10:12
Calcium 9.5 mg/dl (8.4-10.2) 11/22/24 10:12
Albumin 4.5 g/dl (3.5-5.0) 11/22/24 10:12
[2024-11-22 10:36] LABS: Hematocrit 46.2 % (39.0-52.0); Hemoglobin 15.5 g/dL (13.0-18.0); Mean Corp Hgb Conc. 33.5 g/dL (33.0-37.0); Mean Corpuscular Volume 94.5 fL (80.0-94.0); Platelet Count 128 10^3/uL (130-400); Red Cell Dist. Width 14.2 % (11.5-14.5)
[2024-11-22] MEDS: LOW STRENGTH ASPIRIN 324 MG PO (10:57)
[2024-11-22 10:58] LABS: ALT (SGPT) 52 U/L (0-50); AST (SGOT) 23 U/L (17-59); Albumin 4.5 g/dl (3.5-5.0); Alkaline Phosphatase 46 U/L (38-126); Blood Urea Nitrogen 32 mg/dl (9-20); Calcium 9.5 mg/dl (8.4-10.2); Carbon Dioxide 28 mmol/L (22-30); Chloride 107 mmol/L (98-107); Estimated Creatinine Clearance -4 ml/min; Glucose 113 mg/dl (70-99); Potassium 4.3 mmol/L (3.5-5.1); Sodium 140 mmol/L (135-145); Total Protein 6.5 g/dl (6.3-8.2); eGFR 49.56
[2024-11-22] MEDS: NSS 233 ML IV (10:58)
[2024-11-22 12:15] LABS: INR 1.31; PT 16.5 Sec (11.4-14.6)
--- NOTE | 2024-11-22 15:40 | ITS.CL.CATH ---
Equipment Maintenance Supervisor - Catheterization
Cardiac Catheterization
Procedure Report:
LEFT HEART CATHETERIZATION
Date of Procedure: November 22, 2024
Referring: Dr. Luis Zarco
PROCEDURES:
1. Coronary angiography
2. Selective LUIS angiography
3. Abdominal aortography with iliofemoral runoff
INDICATION: This is an 84-year-old gentleman with a history of coronary artery disease and aortic stenosis. In January 2011 he underwent median sternotomy with aortic valve replacement (23 mm bovine pericardial valve) and DOLAN-LAD. He has done
well recently but reported the onset of an elevated resting and exertional heart rate. He was found to be in coarse atrial fibrillation and an attempted cardioversion was successful for return of sinus rhythm albeit briefly before the return of
atrial fibrillation. He is chronically maintained on warfarin. His most recent echocardiogram was notable for at least moderate but more likely severe aortic insufficiency with an aortic valve pressure half-time of 218-245 ms. Flow reversal was
noted in the descending aorta by LEXIE. He is now referred for coronary angiography.
ACCESS: Left radial artery, 6 Taiwanese sheath
HEMODYNAMICS : (mmHg)
AO (s/d) : 150/72
CORONARY ANGIOGRAPHY
Dominance: Right
LEFT MAIN: Normal
LEFT ANTERIOR DESCENDING: The LAD arises normally from the left main and has moderate atherosclerosis proximally before becoming 100% occluded in the mid vessel. The LAD supplies a single bifurcating small to medium caliber diagonal branch that has
tandem 90% stenosis in its proximal midportion. The diagonal bifurcates into 2 small daughter branches. The DOLAN graft to the mid LAD is widely patent with the [place] LAD having a 70% stenosis in the mid LAD beyond the DOLAN touchdown.
CIRCUMFLEX: The circumflex is a large-caliber nondominant vessel that has diffuse minor irregularities in its proximal midportion. OM1 is a large and has a minor irregularities. The circumflex continues in the AV groove where an 80% stenosis is
noted before the origin of a small posterolateral branch
RIGHT CORONARY ARTERY: The right coronary artery is a dominant vessel with tandem 50% proximal and 50-60% mid. The distal RCA proximal to the crux of the vessel has a 50% stenosis in the PDA has a 50% stenosis at its origin and 80% distal PDA
stenosis.
GRAFT ANGIOGRAPHY:
1. DOLAN-LAD: The DOLAN graft to the LAD is widely patent. The [place] LAD beyond the DOLAN anastomosis has a 65-70% stenosis. The mid to distal LAD has minor irregularities.
LEFT VENTRICULOGRAPHY: Not done
ABDOMINAL AORTOGRAPHY WITH ILIOFEMORAL RUNOFF: Abdominal aortography with iliofemoral runoff was performed. The distal abdominal aorta demonstrates mild atherosclerotic plaque. The right and left iliofemoral vessels appear widely patent with only
minor luminal irregularities.
SEDATION: 50 minutes of procedural sedation was utilized. An independent medical economics consultant was present to assist with and help manage the patient's level of consciousness and physiologic status
RADIATION SUMMARY: Fluoro Time (min): 10.9, Dose (mGy): 630, DAP (Gy.cm2) : 38.6
Closure Device: TR band
CONCLUSION
1. Modest progression of coronary artery disease with 70% stenosis in the mid LAD beyond the DOLAN anastomosis. There has been modest progression of coronary disease noted in the mid right coronary artery and distal PDA
2. Severe aortic insufficiency of bioprosthetic valve from 2010
3. Widely patent iliofemoral vessels
RECOMMENDATIONS
1. We will discuss at upcoming valve clinic meeting
Copy to: Dr. Luis Zarco
[2024-11-22] MEDS: NSS 1000 IV (15:52)
[2024-11-22] MEDS: CARDIZEM CD 120 MG PO (17:00)
== END 2024-11-22 18:45 | disposition home or self-care (01) ==
LOC: CATH 09:47
PROVIDERS: ATTENDING PHYSICIAN Internal Medicine Interventional Cardiology; FAMILY PHYSICIAN Family Medicine; OTHER PHYSICIAN Internal Medicine Cardiovascular Disease
DX: I25.10 Atherosclerotic heart disease of native coronary artery without angina pectoris (principal); Z95.1 Presence of aortocoronary bypass graft; Z79.01 Long term (current) use of anticoagulants; Z95.3 Presence of xenogenic heart valve; I35.2 Nonrheumatic aortic (valve) stenosis with insufficiency; E03.9 Hypothyroidism, unspecified; E78.00 Pure hypercholesterolemia, unspecified; I48.0 Paroxysmal atrial fibrillation; I12.9 Hypertensive chronic kidney disease with stage 1 through stage 4 chronic kidney disease, or unspecified chronic kidney disease; I70.0 Atherosclerosis of aorta; K76.0 Fatty (change of) liver, not elsewhere classified; N18.9 Chronic kidney disease, unspecified; N40.0 Benign prostatic hyperplasia without lower urinary tract symptoms; Z79.52 Long term (current) use of systemic steroids; Z79.890 Hormone replacement therapy; Z82.49 Family history of ischemic heart disease and other diseases of the circulatory system; Z83.79 Family history of other diseases of the digestive system; Z86.16 Personal history of COVID-19; Z86.73 Personal history of transient ischemic attack (TIA), and cerebral infarction without residual deficits; Z88.5 Allergy status to narcotic agent
CPT/HCPCS: 99152; 99153; 80053; 85027; 85610; 93455; 93567; C1769; C1894; G0278; Q9967

== ENCOUNTER → 2024-11-30 10:02 | Outpatient (REF) | payer MEDICARE, OTHER, SELFPAY ==
[2024-11-30 11:31] LABS: Blood Urea Nitrogen 37 mg/dl (9-20); Calcium 9.5 mg/dl (8.4-10.2); Carbon Dioxide 26 mmol/L (22-30); Chloride 107 mmol/L (98-107); Glucose 139 mg/dl (70-99); Potassium 4.7 mmol/L (3.5-5.1); Sodium 138 mmol/L (135-145); eGFR 45.62
== END ==
LOC: REG 10:02
PROVIDERS: ATTENDING PHYSICIAN Nurse Practitioner Acute Care; FAMILY PHYSICIAN Family Medicine
DX: I35.0 Nonrheumatic aortic (valve) stenosis (principal)
CPT/HCPCS: 36415; 80048

== ENCOUNTER → 2024-12-03 09:06 | Outpatient (REF) | payer MEDICARE, OTHER, SELFPAY ==
[2024-12-03 10:54] LABS: TSH 2.27 uIU/ml (0.47-4.68)
== END ==
LOC: REG 09:06
PROVIDERS: ATTENDING PHYSICIAN Family Medicine; FAMILY PHYSICIAN Family Medicine
DX: E05.80 Other thyrotoxicosis without thyrotoxic crisis or storm (principal)
CPT/HCPCS: 36415; 84443

== ENCOUNTER → 2024-12-07 09:10 | Outpatient (REF) | payer MEDICARE, OTHER, SELFPAY | LOC: RAD 09:10 | PROVIDERS: ATTENDING PHYSICIAN Nurse Practitioner Acute Care; FAMILY PHYSICIAN Family Medicine | DX: I35.0 Nonrheumatic aortic (valve) stenosis (principal) | CPT/HCPCS: 75572; Q9967 ==

== ENCOUNTER 2024-12-15 07:21 | Inpatient (IN) | payer MEDICARE, OTHER, SELFPAY ==
[2024-12-12 08:26] VITALS: BMI 23.7
[2024-12-12 08:48] LABS: Urine Character Clear (Clear)
[2024-12-12 08:49] LABS: Hematocrit 42.9 % (39.0-52.0); Hemoglobin 14.6 g/dL (13.0-18.0); Mean Corp Hgb Conc. 34.0 g/dL (33.0-37.0); Mean Corpuscular Volume 95.5 fL (80.0-94.0); Nucleated Red Blood Cells % 0 % (-); Platelet Count 135 10^3/uL (130-400); Red Cell Dist. Width 14.8 % (11.5-14.5)
[2024-12-12 08:55] LABS: ALT (SGPT) 108 U/L (0-50); AST (SGOT) 27 U/L (17-59); Albumin 4.2 g/dl (3.5-5.0); Alkaline Phosphatase 55 U/L (38-126); Blood Urea Nitrogen 35 mg/dl (9-20); Calcium 9.6 mg/dl (8.4-10.2); Carbon Dioxide 28 mmol/L (22-30); Chloride 107 mmol/L (98-107); Estimated Creatinine Clearance 35 ml/min; Glucose 113 mg/dl (70-99); Potassium 4.8 mmol/L (3.5-5.1); Sodium 138 mmol/L (135-145); Total Protein 6.1 g/dl (6.3-8.2); eGFR 39.26
[2024-12-12 08:57] LABS: INR 2.09; PT 23.6 Sec (11.4-14.6)
[2024-12-12 09:24] LABS: Urine Red Blood Cell 0-2 /HPF (0-2)
[2024-12-12 09:56] LABS: Glycohemoglobin (HgbA1c) 6.3 % (4.0-5.6)
--- NOTE | 2024-12-12 13:52 | CM ---
spoke to pt in PAT's, we discussed preop TAVR teaching including lifting and driving restrictions. he is prev indep, lives with his in a 2 story home with no steps to enter. he denies any dme's. he has the tavr educ book, soap and instructions,
cm role explained and all quest answered. plan is for TAVR 12/15.
[2024-12-15] VITALS (27 sets, daily range): BP systolic 145–199; BP diastolic 60–110; BMI 23.7
[2024-12-15 08:19] LABS: Glucose - Point of Care 106 mg/dl (70-99)
[2024-12-15 08:31] LABS: INR 1.26; PT 16.3 Sec (11.4-14.6)
--- NOTE | 2024-12-15 09:09 | W.PN.UPDATE ---
Update Note
Progress Note Update
I have examined the patient prior to performance of the scheduled procedure.
The patient's condition is unchanged from the time of the dictated/written History and
Physical and the patient is able to undergo the scheduled procedure. All questions answered.
TF TAVR, Limited Rescue within reason - prior AVR redo chest
[2024-12-15] MEDS: ANCEF 10 IV (10:21)
[2024-12-15 11:05] LABS: ACT-LR - POC 321 Seconds (116-155)
[2024-12-15] MEDS: ANCEF IV (11:39)
--- NOTE | 2024-12-15 12:00 | PTCARENOTE ---
Patient received from OR. Patient is AO x3, PRETTY. A-fib with BBB. Right femoral site CDI, +2 DP. Left transvenous pacing intact (HR 30, MA 20), +2 DP. HOB flat, BP 151/91, POX 98% on room air. Call alan in reach
[2024-12-15] MEDS: NSS 1000 IV (12:10)
[2024-12-15 12:14] LABS: Glucose - Point of Care 96 mg/dl (70-99)
--- NOTE | 2024-12-15 12:27 | W.PN.CT.SURG ---
CT Surgery Operative Note
-
OPERATIVE REPORT
Preoperative Diagnosis: Severe aortic valve stenosis, symptomatic
Postoperative Diagnosis: Same
Procedure(s) Performed: Right trans femoral TAVR with a 23 mm Pettit Resilia TAVR valve
Date of Procedure: 12/15/2024
Comorbidities:
1. Mixed moderate to severe aortic insufficiency and moderate aortic stenosis, symptomatic
2. Paroxysmal A-fib/a flutter
3. Aortic stenosis previous SAVR with 23 mm magna valve
4. Coronary artery disease, prior CABG
5. CKD 3
6. Thoracic aortic aneurysm
7. Prior CVA
Cardiac Surgeon: Dorian Buckner MD, MS and Desire Díaz MD, MPH
Self Sealing Fuel Tank Repairer: Luis An MD
Anesthesia: Conscious Sedation and Local Analgesia
EBL: 150 cc
Products: none
Implant: 23 mm Pettit Resilia, SN: [id number]
Indication(s) for Procedures: 84-year-old male with prior severe aortic stenosis s/p surgical AVR and CABG with a 23 mm magna aortic valve and DOLAN to LAD. He has done well with his valve and is now presenting with mixed valvular degeneration
moderate to severe AI and moderate aortic stenosis with significant symptoms. Patient also with known history of A-fib/a flutter with prior unsuccessful multiple ablations. CT-TAVR protocol revealed acceptable anatomy for TAVR access and
implantation.
Start time: 1023 hrs
Deployment time: 1050 hrs
End time: 1116 hrs
Radiation Dose (mGy): 125
DAP (cm2.Gy): 17.3
Fluoroscopy time (minutes): 8 point
Contrast volume (ml): 40
TAVR gradient (mmHg): 3 mmHg
Heparin Dose: 6500 units
Protamine Dose: 30 mg
Final Valve Positionin/10
LVEPD: 18 mmHG
Findings: Preoperative LVEF was 50�55% and was 50�55% following TAVR without inotropic support. Function was overall at baseline. The aortic valve was well seated without detectable PVL and mean gradient across the new valve was 3 mmHg. Patient was
in A-fib throughout the duration of the case and was notably sensitive to wire and LV with 2 instances of loss of internal pacing drive and severe hypotension requiring temp pacer backup with good capture and very quick resolution. There was
successful placement of 23 mm Pettit Resilia TAVR valve without acute complications. We did opt to leave temp pacing wires in place given the 2 instances of brief loss pulsatility.
Access:
1. Device -R WEIGHTER, perclose x 2 + 8Fr angioseal
2. Pigtail -L WEIGHTER + 6Fr angioseal
3. Transvenous Pacer -L common femoral vein
Description of Procedure: The patient was taken to the clinical laboratory technologist. Their identity and procedure to be performed were verified and they were positioned supine on the clinical laboratory technologist table. Induction via conscious sedation. The patient was then prepped and
draped from chin to thigh in a sterile fashion. A preoperative time-out was performed with all members of the team present. Arterial and venous access was performed using fluoroscopy and ultrasound guidance with micropuncture and Seldinger
technique. Two perclose devices were used on the device side followed by access to the aorta with a stiff wire to facilitate E-sheath placement. Heparin was given. A stiff straight wire and AL-1 catheter was used to cross the aortic valve. An LVEDP
was measured. The stiff wire was exchanged for an extra stiff coiled tip wire. The valve was prepped and mounted on to the device carrier. An ACT of >250 was achieved. We verified x 3 that the valve was mounted in the correct orientation with the
skirt of the valve directed toward the tip of the device carrier. We advanced the device into the descending thoracic aorta where the valve was them mounted onto the balloon under fluoroscopy. The device was flexed and advanced over the arch into
the root and positioned across the aortic valve. Implanted surgical valve was used as a guide for TAVR valve positioning with the S3 inflow 15 to 20% below the fluoroscopic marker of the previously implanted valve sewing ring. The device sheath was
pulled back. We performed a quick pre-deployment time out. The pacer was turned on and had capture. Blood pressure fell accordingly, angiography was done to verify the intended final placement and the valve was deployed with 5 seconds of rapid
pacing to +1 volume. The balloon was deflated and the pacer was turned off. We had recovery of vitals. The device carrier was unflexed and positioned back in the descending thoracic aorta. A transthoracic echocardiogram was performed. The device was
removed from the E-Sheath maintaining wire access followed by removal of the E-sheath as we cinched down the perclose devices in addition to an 8 Amharic Angio-Seal. There was acceptable hemostasis. The pigtail was withdrawn into the
descending/abdominal and completion aortogram with runoff run-off angiography was performed. There was no stenosis or dissection of bilateral iliofemoral systems. There was acceptable hemostasis of bilateral groins and manual pressure was held
following wire removal. Temporary pacers were left in place due to to self-limiting episode of loss of pulsatility in relation to wire manipulation in the LV. Low dose protamine was administered after checking another ACT.
All instrument, sponge, and needle counts were confirmed to be correct x 2 at the end of the operation. The patient was transferred to the cardiac intensive care unit in stable condition.
I, Dr. Desire Díaz, was present, scrubbed for, and performed all critical elements of this procedure.
Desire Díaz MD, MPH
Cardiothoracic Surgeon
[facility]
This operative dictation was created using the [employer] dictation system. Please excuse any grammatical, typographical, or 'sound alike' errors
--- NOTE | 2024-12-15 13:07 | ITS.CL.TAVR ---
Concrete Stone Finishing Supervisor - TAVR Report
TAVR PRocedure
Procedure Report:
TRANSCATHETER AORTIC VALVE REPLACEMENT
Date of Procedure: December 15, 2024
Referring: Dr. Luis Zarco
Operators: Dr. Luis An, Dr. Desire Díaz, Dr. Dorian Buckner
PROCEDURE PERFORMED:
1. Successful placement of 23 mm Pettit Eldon S3 aortic [id number] via right common femoral approach.
2. Ultrasound guidance was utilized to obtain access in the left common femoral artery, left common femoral vein, and right common femoral artery. 6 Salvadorean sheaths were inserted. Imaging of the ultrasound access was recorded as part of the
patient's medical record.
PREPROCEDURE NYHA CLASS: 3
DESCRIPTION OF PROCEDURE: The patient was referred for assessment of severe symptomatic aortic stenosis and following a comprehensive evaluation it was felt that transcatheter aortic valve replacement (TAVR) would be the most appropriate treatment.
Informed consent was obtained prior to the procedure. A 'time-out' was called and the procedural plan was verbally confirmed by anesthesia, surgery, perfusion, and laborer livestock staff.
Arterial was obtained in the left common femoral artery using ultrasound guidance and micropuncture technique. A 6 Fr sheath was inserted. Ultrasound guidance was then utilized to gain access into the left common femoral vein and a 6 Fr sheath was
inserted. Attention was then turned to the right common femoral artery. Ultrasound guidance was utilized and access was obtained in the right common femoral artery using ultrasound guidance. Angiography through the micropuncture sheath revealed
appropriate positioning of both the right common femoral and left common femoral arteriotomy site were appropriate for closure. The left common femoral arteriotomy plan was to close with a 6 Salvadorean Angio-Seal while the right common femoral
arteriotomy was planned to be closed using a preclosure technique and 2 Perclose devices. A 0.035 inch J-wire was then reinserted through the micropuncture sheath and a 6 Fr sheath was then inserted.
A transvenous pacemaker wire was then advanced from the left common femoral vein to the right ventricular apex where excellent pacing thresholds were obtained.
An angled pigtail was advanced to the proximal descending thoracic aorta for monitoring pressures throughout the procedure. Coplanar angle of the bioprosthetic valve was SYRIAC 17 / CAU 9
Pre-closure of the right common femoral arteriotomy was then performed using 2 Perclose devices and was followed by placement of an 8 Fr arterial sheath.
An AL-1 catheter was then advanced to the proximal descending thoracic aorta over 0.035' J-tipped guidewire. An Amplatz Extra-Stiff wire was then advanced through the AL-1 catheter to the proximal descending thoracic aorta. The AL-1 catheter was
removed and the supportive wire was utilized to facilitate delivery of the Pettit eSheath and dilator. Heparin, 6500 units, was administered and the ACT was monitored throughout the procedure.
The AL-1 catheter was then readvanced through the Pettit eSheath. The 0.035' stiff wire was allowed to drift across the aortic arch and the AL1 was positioned just above the aortic valve. The stenotic leaflets were probed with a Soft-tip Straight
wire. The aortic leaflets were crossed and the AL-1 catheter followed the Soft-tip Straight wire to the mid left ventricle. The wire was removed. Left ventricular end-diastolic pressures was measured at 18 mmHg.
An Amplatz Extra-Stiff wire with a generous curved tip was then advanced to the mid left ventricle. The AL-1 catheter was removed and the Amplatz wire was left in place in order to facilitate delivery of the Pettit delivery system. A 23 mm
Pettit ELDON S3 valve was brought to the table and the orientation of the valve on the balloon delivery system was confirmed by all operators. The ELDON S3 valve was advanced through the eSheath and into the proximal descending thoracic aorta.
The ELDON valve was centered on the delivery balloon and the entire system was retroflexed as across the aortic arch in an SYRIAC projection. The ELDON S3 delivery system was then advanced across the stenotic aortic leaflets. The patient did
experience several seconds of asystole as the valve was being advanced across the aortic arch and the temporary pacemaker began pacing at the lower set rate. His rhythm recovered and most likely was attributed to the wire in the left ventricle.
The Pettit ELDON valve was well positioned within the existing bioprosthetic valve. The pusher was retracted. The 23 mm ELDON S3 valve was deployed during rapid pacing. Valve deployment was uneventful.
The post valve deployment transthoracic echocardiogram was notable for no aortic insufficiency and a mean gradient of 4 mmHg.
The Pettit valve delivery system was removed. The Pettit eSheath was removed and the Perclose knots were advanced to the arteriotomy site with a persistent ooze at the existing arteriortomy site and the decision was made to place an 8 Fr
Angio-Seal. Angiography after the Perclose knots were advanced to the arteriotomy site and demonstrated good distal runoff.
A 6 Salvadorean Angio-Seal was then utilized to obtain hemostasis in the left common femoral artery. The temporary pacemaker was sewn in position for backup given the long pause during the procedure.
Protamine was administered to reverse the intravenous anticoagulant.
Fluoro Time: 8.9 min, Dose: 125 mGy, DAP : 17 Gy.cm2
CONCLUSIONS:
1. Severe symptomatic aortic stenosis. Successful deployment of a 23 mm ELDON S3 [id number] with no aortic insufficiency post valve deployment.
2. The right arteriotomy was closed with 2 Perclose devices and an 8 Fr Angio-Seal. The left common femoral arteriotomy site was closed with a 6 Fr. Angio-Seal.
3. The temporary pacemaker wire was sewn in place.
Copy to: Dr. Luis Zarco
--- NOTE | 2024-12-15 13:13 | CM ---
Reviewed chart, Mr. Guerrero is in the operating room today. Prior to admission he resides with his spouse in a two story home without any steps to enter. Prior to admission he was independent with ambulation and adls. He does not have any DME
in the home. He has a prescription plan. Will need to see if he is in the catchment area for the Transitional Care Nurse, [facility] Medical work-up in progress. The discharge plan is to return home with his
spouse and a home visit by the Transitional Care Nurse verses SNF/Rehab. when medically stable.
--- NOTE | 2024-12-15 15:44 | PTCARENOTE ---
Family reported he was becoming agitated and threatening to leave. Dr. An came to speak with patient. He appears calm, Lying flat in bed, withdrawn but cooperative
--- NOTE | 2024-12-15 16:00 | PTCARENOTE ---
Right transvenous pacemaker and venous sheath removed at [address] PA. Plan of care reviewed with patient
--- NOTE | 2024-12-15 16:08 | W.PN.CARD.SR ---
Sheath/IABP Sheath Removal
Sheath Removal
Left Venous Femoral:
Site appearance prior to sheath removal: Intact
Sheath removed by:: Physician assistant winemaker
Name of associate removing sheath: Kevan Peña
Time of sheath removal: 15:55
Time hemostasis achieved: 16:05
Site appearance post sheath removal: Intact
Method of Hemostasis Post Sheath Removal: Manual Pressure (Manual pressure held x 10 min. Site c/d/i. clean sterile dressing applied) and Sandbag (Keep sand bag x 2 hours)
Dressing dry and intact?: Yes
--- NOTE | 2024-12-15 16:17 | CON.HOSP ---
Family Physician
-
Family Physician: Scottie aKpadia
Chief Complaint
-
agitation
History of Present Illness
84-year-old male past medical history of CAD status post CABG in 2010, aortic stenosis status post bioprosthetic aortic valve replacement in 2011 complicated by moderate to severe aortic regurgitation, paroxysmal atrial fibrillation,
hypercholesteremia, hypertension, CKD, gout, embolic CVA, right bundle branch block, dementia, polymyalgia rheumatica, who underwent TAVR today for worsening aortic regurgitation after his original bioprosthetic aortic valve replacement 2010.
After the surgery patient was noted to be loopy from anesthesia. Afterwards he was inpatient and bothered by temporary pacemaker wire and threatened to leave AMA.
He currently denies any symptoms.
He denies smoking or alcohol use.
Medical History
Past Medical History
Past Medical History: Reports Other (CAD status post CABG in 2010, aortic stenosis status post bioprosthetic aortic valve replacement in 2011 complicated by moderate to severe aortic regurgitation, paroxysmal atrial fibrillation, hypercholesteremia,
hypertension, CKD, gout, embolic CVA, right bundle branch block, dementia, polymyalgia )
Past Surgical History: Reports Other (TAVR, CABG )
Social History
Tobacco: Non-smoker
Alcohol: None
Drug: None
Allergies / Home Medications
Allergies reflects when Allergies were last updated in [facility].
Home Medications with original date entered in [facility]
Allergy/Medication List:
Allergies
Allergy/AdvReac Type Severity Reaction Status Date / Time
pramipexole (From Mirapex) Allergy Confusion Verified 12/15/24 07:51
meperidine HCl (From Demerol) AdvReac Mild Nausea / Verified 12/15/24 07:51
Vomiting
Home Medications
colchicine 0.6 mg tablet (Colcrys) 0.6 mg PO PRN PRN gout flare 06/20/21
diltiazem HCl 120 mg capsule,extended release 12 hr 120 - 240 mg PO BID 06/20/21
tamsulosin 0.4 mg capsule (Flomax) 0.4 mg PO QPM 08/10/22
evolocumab 140 mg/mL subcutaneous syringe (Repatha Syringe) 140 mg SC Q2W 10/22/22
hydrocodone 5 mg-acetaminophen 325 mg tablet 1 tab PO Q6H PRN back pain 10/22/22
levothyroxine 125 mcg tablet (Synthroid) 125 mcg PO DAILY 10/22/22
donepezil 5 mg tablet (Aricept) 10 mg PO DAILY 10/06/24
methylprednisolone 4 mg tablet 4 mg PO DAILY 10/06/24
memantine 5 mg tablet 5 mg PO QPM 11/02/24
sildenafil (pulm.hypertension) 20 mg tablet 40 mg PO DAILY PRN ED 11/02/24
warfarin 1 mg tablet (Jantoven) 2.5 mg PO DAILY 12/09/24
aspirin 81 mg chewable tablet 81 mg PO DAILY 12/15/24
Review of Systems
-
Constitutional: Reports No Symptoms
EENT: Reports No Symptoms
Respiratory: Reports No Symptoms
Cardiac: Reports No Symptoms
Abdomen/GI: Reports No Symptoms
: Reports No Symptoms
Musculoskeletal: Reports No Symptoms
Skin: Reports No Symptoms
Neurological: Reports No Symptoms
Endocrine: Reports No Symptoms
Hematologic/Lymphatic: Reports No Symptoms
Psych: Reports No Symptoms
Physical Exam
Vital Signs
Vital Signs
Temp Pulse Resp BP Pulse Ox
97.5 F 87 16 183/89 97
12/15/24 13:15 12/15/24 15:15 12/15/24 13:15 12/15/24 15:01 12/15/24 13:15
Physical Exam
General: Well Developed, Well Nourished and No Apparent Distress
HEENT: Normocephalic, Moist Mucous Membranes and Atraumatic
Respiratory: Clear
Cardiac: S1/S2 and Regular Rhythm; Negative Murmur or Rub
GI: Soft, Non Tender, Non Distended and Normal Bowel Sounds
Rectal: Deferred by Provider
Musculoskeletal: No Clubbing, No Cyanosis and No Edema
Skin: Negative Rash
Neuro: Nonfocal/Grossly Intact
Laboratory Results
-
Laboratory Results
12/12/24 08:23
12/12/24 08:22
PT 16.3 Sec (11.4-14.6) H 12/15/24 08:08
INR 1.26 12/15/24 08:08
Total Bilirubin 1.1 mg/dl (0.2-1.3) 12/12/24 08:22
AST 27 U/L (17-59) 12/12/24 08:22
ALT 108 U/L (0-50) H 12/12/24 08:22
Alkaline Phosphatase 55 U/L (38-126) 12/12/24 08:22
Data Reviewed
-
Lab Data: Labs Reviewed
Old Records: Reviewed
Impression / Plan
-
IMPRESSION:
PLAN:
#Aortic stenosis status post bioprosthetic aortic valve replacement 1999 [place] complicated by moderate to severe aortic regurgitation status post TAVR today
- Management as per cardiology/cardiothoracic surgery
# Inpatience/agitation after surgery
# Hx of Dementia
-Seems that patient was overstimulated from having too many people in the room and irritation from the pacemaker wire and wanted to leave AMA, currently calm without any complaints
- Continue donepezil, memantine
CAD status post CABG in 2010
- Continue aspirin
Paroxysmal atrial fibrillation
- Continue diltiazem
- Coumadin on hold
Essential hypertension
Hypercholesterolemia
CKD
Gout
- Continue colchicine
History of embolic CVA
Right bundle branch block
Polymyalgia rheumatica
- Continue methylprednisolone
Hypothyroidism
- Continue levothyroxine
BPH
- Continue tamsulosin
Chronic back pain
-continue vicodin
[2024-12-15] MEDS: ANCEF 5 IV (16:34)
[2024-12-15] MEDS: FLOMAX 0.4 MG PO (17:28)
[2024-12-15] MEDS: NAMENDA 5 MG PO (17:28)
--- NOTE | 2024-12-15 18:22 | PTCARENOTE ---
Sandbag removed 1800. Left femoral site soft and dry. Walked in room. Voided 450
[2024-12-15] MEDS: CARDIZEM SR 120 MG PO (19:46)
--- NOTE | 2024-12-15 23:17 | PTCARENOTE ---
Received pt @ change of shift. AAOx3, daughters bedside. BP 180/100, other VSS-- A-Flutter with variable AV Block and RBBB (per EKG). Dr's aware of BP per previous RN-- compensation for valve-- no orders for medication. Right groin site dry and
intact-- small spot of blood that has not changed from previous shift. Area soft to touch, ecchymotic. Left groin site clean, dry, and intact. Soft to touch, no ecchymosis. Bed alarm in place for safety due to cognitive decline and dementia. Pt
ambulating in [place] with RN. Discussed plan of care. Pt verbalizes understanding. Call alan within reach.
[2024-12-16 03:40] VITALS: BP 168/96
[2024-12-16 04:24] LABS: Hematocrit 45.7 % (39.0-52.0); Hemoglobin 15.2 g/dL (13.0-18.0); Mean Corp Hgb Conc. 33.3 g/dL (33.0-37.0); Mean Corpuscular Volume 93.6 fL (80.0-94.0); Platelet Count 132 10^3/uL (130-400); Red Cell Dist. Width 14.5 % (11.5-14.5)
[2024-12-16 05:00] LABS: Blood Urea Nitrogen 27 mg/dl (9-20); Calcium 9.0 mg/dl (8.4-10.2); Carbon Dioxide 26 mmol/L (22-30); Chloride 104 mmol/L (98-107); Estimated Creatinine Clearance 46 ml/min; Glucose 96 mg/dl (70-99); Potassium 4.4 mmol/L (3.5-5.1); Sodium 135 mmol/L (135-145); eGFR 54.17
--- NOTE | 2024-12-16 05:55 | W.PN.CT ---
Today's Communication / Plan
-
-pod #1
-no issues overnight
-in a-flutter 60s overnight. No pepe or pauses
-has known RBBB preop
-high [id number]- on Cardizem bid.
-Cr 1.3 today (1.5-1.7 preop)
-Echo today
-possible d/c
-ambulate
Assessment / Plan
-
- Severe symptomatic aortic valve stenosis- s/p Right trans femoral TAVR with a 23 mm Pettit Resilia TAVR valve on 12/15/24, pod #1
- Intraop TTE: LVEF was 50�55% preop and following TAVR without inotropic support. The aortic valve was well seated without detectable PVL and mean gradient across the new valve was 3 mmHg.
- Patient was in A-fib throughout the duration of the case and was notably sensitive to wire and LV with 2 instances of loss of internal pacing drive and severe hypotension requiring temp pacer backup with good capture and very
quick resolution.
- Mixed moderate to severe aortic insufficiency and moderate aortic stenosis, symptomatic
- Paroxysmal A-fib/a flutter
- Aortic stenosis, s/p previous SAVR with 23 mm magna valve
- Pre-existing RBBB
- Coronary artery disease, prior CABG
- CKD 3
- Thoracic aortic aneurysm
- Prior CVA
Discussed patient care with: Nursing and Care Team
Subjective
-
Date of Service: December 16, 2024
Objective Data
-
Lab Results
12/16/24 03:45
12/16/24 03:45
PT 16.3 Sec (11.4-14.6) H 12/15/24 08:08
INR 1.26 12/15/24 08:08
Vital Signs
Vital Signs
Temp Pulse Resp BP Pulse Ox
98.1 F 69 16 168/96 96
12/16/24 03:49 12/16/24 04:00 12/16/24 03:49 12/16/24 03:40 12/16/24 03:49
CT Intake/Output/Weight
12/15/24 12/15/24 12/16/24
06:59 18:59 06:59
Intake Total 2260 / 2260
Output Total 1650 / 1650
Balance 610 / 610
SaO2: 96
Physical Exam
-
General: Awake and AOx3
Cardiovascular: Irregular rate & rhythm, No Murmurs and No Rub
Respiratory: Decreased Breath Sounds
Sternum: Stable
Incision: Clean (groins are cdi, soft, nontender, no hematoma b/l)
Extremities: Edema +1 (2+ DPs b/l)
Abdomen: soft, nontender, nondistended
Data Reviewed
-
Lab Results: Results Reviewed
Medications: Active Meds Reviewed
Chest X-Ray: Report Reviewed and Image Reviewed
ECG: Report Reviewed and Image Reviewed
[2024-12-16 06:00] VITALS: BMI 22.8
[2024-12-16 07:26] VITALS: BP 165/99
[2024-12-16] MEDS: ARICEPT 10 MG PO (07:39)
[2024-12-16] MEDS: MEDROL 4 MG PO (07:39)
[2024-12-16] MEDS: SYNTHROID 125 MCG PO (07:39)
[2024-12-16] MEDS: CARDIZEM SR 120 MG PO (07:39)
--- NOTE | 2024-12-16 07:47 | W.PN.HOSP.TC ---
Today's Communication/Plan
-
Medically stable for discharge
Follow cards recommendations
Assessment / Plan
Assessment / Plan
Assessment
84-year-old male who underwent TAVR yesterday for worsening aortic regurgitation after his original bioprosthetic aortic valve replacement 2010. After the surgery patient was noted to be loopy from anesthesia. Afterwards he was bothered being
overstimalated by a lot of people being around him, by temporary pacemaker wire and threatened to leave AMA. Today he feels good mentally and physically. He is medically stable for discharge.
Plan
#Aortic stenosis s/p bioprosthetic aortic valve replacement 1999 [place] complicated by moderate to severe aortic regurgitation status post TAVR
- Management as per cardiology/cardiothoracic surgery
# Agitation after surgery
# Hx of Dementia
- Seems that patient was overstimulated from having too many people in the room and irritation from the pacemaker wire and wanted to leave AMA 12/16/2024. Currently he is happy, talks about his hunting season and doesn't mind us being around him.
- Continue donepezil 10mg QD
- As needed Memantine 5mg
CAD status post CABG in 2010
- Continue aspirin
#Paroxysmal A-fib/ a flutter
- Continue diltiazem
- INR 1.26. Coumadin on hold- managed per cards.
- Overnight a-flutter 60s.
#Essential hypertension
- Overnight high BP 165/99
- Continue Diltiazem 120mg BID
- Monitor BP
Chronic
- CKD
- History of embolic CVA
- Right bundle branch block
- Hypercholesterolemia
- Gout- Continue colchicine
- Polymyalgia rheumatica- Continue methylprednisolone
- Hypothyroidism- Continue levothyroxine
- BPH- Continue tamsulosin
- Chronic back pain- continue vicodin
Anticipated Discharge: Today
Subjective/Interval History
-
Date of Service: December 16, 2024
He is comfortable lying in his bed. He is smiling and having a conversation. Yesterday he was able to walk 2miles with nurse. He had a good sleep. Denies chest pain, palpitations, lightheadedness. He is excited for hunting season next week.
Objective Data
-
Labs:
Laboratory Results
12/16/24
03:45
WBC 9.9
Hgb 15.2
Hct 45.7
Plt Count 132
Sodium 135
Potassium 4.4
Chloride 104
Carbon Dioxide 26
BUN 27 H
Creatinine 1.3
Glucose 96
Calcium 9.0
Vital Signs:
Vital Signs
Temp Pulse Resp BP Pulse Ox
98.2 F 69 16 168/96 97
12/16/24 07:26 12/16/24 07:26 12/16/24 07:26 12/16/24 03:40 12/16/24 07:26
I&O
12/15/24 12/16/24 12/17/24
06:59 06:59 06:59
Intake Total 2260 / 2260
Output Total 1650 / 1650
Balance 610 / 610
Review of Systems
-
History Source: Patient
Constitutional: Reports No Symptoms
EENT: Reports No Symptoms Reported
Respiratory: Reports No Symptoms
Cardiac: Reports No Symptoms
Abdomen/GI: Reports No Symptoms
Breast: Reports No Symptoms
Genitourinary: Reports No Symptoms
Musculoskeletal: Reports No Symptoms
Skin: Reports No Symptoms
Neuro: Reports No Symptoms
Endocrine: Reports No Symptoms
Hematologic / Lymphatic: Reports No Symptoms
Physical Exam
-
General: Well Developed, Well Nourished, No Apparent Distress, Comfortable and Conversant
HEENT: Normocephalic and Atraumatic
Respiratory: Clear to Auscultation
Cardiac: Regular Rhythm and S1/S2
Breast: Deferred by me
GI: Nondistended
Rectal: Deferred by Provider
Genito-urinary: Deferred by me
Musculoskeletal: No Clubbing, No Cyanosis and No Edema
Skin: Warm and Dry
Neuro: AO x 3
Psych: Calm
--- NOTE | 2024-12-16 08:33 | PTCARENOTE ---
Assumed care at 0700. Patient AO x3, forgetful at times. A-flutter BBB 70-90's, BP 165/99. B/L femoral sites CDI, soft, non-tender. Walking in room, gait steady, call alan in reach
--- NOTE | 2024-12-16 10:13 | W.PN.CARDCBS ---
Today's Communication / Plan
-
doing well s/p TAVR
echo pending
follow BPs
rhythm star monitor for DC
Impression / Plan
-
PCP: Dr. Kapadia
Primary Telegraph Printer Mechanic: Dr. IDALIA Zarco
Impression:
Severe symptomatic /AI s/p Right TF TAVR 23 mm Pettit Resilia valve 12/15/24
Post procedure delirium with underlying dementia
Paroxysmal Afib/aflutter
s/p PVI 05/25/18
remote flutter ablation
Chronic warfarin OAC managed by [facility]
CAD s/p CABG - DOLAN to LAD 01/28/11
s/p bioprosthetic aortic valve replacement 01/28/11
Gout
HTN
HLD
CKD stage 3
h/o CVA
PVCs
hypothyroidism
PMR
Thoracic aortic aneurysm
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
hx of remote CVA (right MCA)
Echo 11/21/19: EF 55-60%, normal RV size and function, mild MR, normal functioning bovine AVR with peak/mean 20/11 mmHg
Echo 12/03/23: 60-65%, mild conc LVH, normal RV size and function, mild MR, well seated tissue AVR peak/mean 21/13 mmHg and mild aortic regurgitation, mild TR with PAP 20-25 mmHg
Echo 11/08/2024: EF 59 to 63%, moderate MR, dilated LA, bioprosthetic aortic valve with moderate to severe or severe regurgitation with peak/mean gradients 49/26 mmHg, FREDDY 1.4 cm�, mildly dilated RV and RA with PASP 58 mmHg
ECHO 12/15/24: Limited echo post TAVR, EF 50 to 55%, valve in valve TAVR with peak gradient 7 mmHg/mean gradient 4 mmHg, no AR detected
PLAN:
- s/p Right TF TAVR 23 mm Pettit Resilia valve 12/15/24
- had post op delirium post procedure, which improved throughout night. appreciate hospitalist recommendations
- Of note patient was in A-fib during TAVR with 2 instances of loss of internal pacing drive and severe hypotension requiring temp pacer backup with quick resolution
- on review of tele overnight remains in rate controlled aflutter without pepe or pauses. he has chronic RBBB and 1st degree av block. plan for rhythm star monitor upon DC
- BPs elevated overnight however patient insists this is due to the blood pressure cuff being inaccurate. states at home BPs have been fine. currently on cardizem 120mg BID, consider uptitration of antiHTN regimen.
- consider gnosticist of SR, ? timing
- resume coumadin, INR 1.26 on 12/16
- echo pending
-ambulate
- OP cardiac follow up arranged
- d/w nursing, TAVR coordinator
Progress Note - Telegraph Printer Mechanic
Subjective
Date of Service: December 16, 2024
no issues overnight.
Objective
Labs:
12/16/24 03:45
12/16/24 03:45
Labs
Hgb 15.2 g/dL (13.0-18.0) 12/16/24 03:45
Hct 45.7 % (39.0-52.0) 12/16/24 03:45
Plt Count 132 10^3/uL (130-400) 12/16/24 03:45
PT 16.3 Sec (11.4-14.6) H 12/15/24 08:08
INR 1.26 12/15/24 08:08
Sodium 135 mmol/L (135-145) 12/16/24 03:45
Potassium 4.4 mmol/L (3.5-5.1) 12/16/24 03:45
BUN 27 mg/dl (9-20) H 12/16/24 03:45
Creatinine 1.3 mg/dL (0.7-1.3) 12/16/24 03:45
Glucose 96 mg/dl (70-99) 12/16/24 03:45
Vital Signs and I&O:
Vital Signs
Temp Pulse Resp BP Pulse Ox
98.2 F 102 16 165/99 97
12/16/24 07:26 12/16/24 09:30 12/16/24 07:26 12/16/24 07:26 12/16/24 07:26
Vital Signs
Temp Pulse Resp BP Pulse Ox
98.2 F 102 16 165/99 97
12/16/24 07:26 12/16/24 09:30 12/16/24 07:26 12/16/24 07:26 12/16/24 07:26
Intake & Output
12/14/24 12/15/24 12/16/24 12/17/24
07:59 07:59 07:59 07:59
Intake Total 2260 / 2260
Output Total 1650 / 1650
Balance 610 / 610
Physical Exam
Physical Exam
GEN: No distress, awake, alert, oriented x3
HEENT: supple, anicteric, mmm, eomi
LUNGS: CTA B/L, no wheezes/rales
CV: Irreg, S1/S2, 1/6 syst LSB
ABD: soft, BS+, NT/ND
EXT: No cyanosis, clubbing, edema
NEURO: Gross non-focal
SKIN: Warm, pink, dry. No rash
--- NOTE | 2024-12-16 10:21 | W.PN.ANS.POP ---
Anesthesia Post Operative
- Anesthesia Post Op Note
Vital Signs Stable-See Nursing Note: Yes
Airway Patent: Yes
Adequate Pain Control: Yes
Change in Mental Status: No
Current Postoperative Nausea & Vomiting: No
Anesthesia Complications: No
General Anesthetic Recall: No
Unplanned Admission: No
Post Op Hydration Adequate: Yes
[2024-12-16 11:02] VITALS: BP 160/88
[2024-12-16 11:16] VITALS: BP 178/92
[2024-12-16 11:18] VITALS: BP 179/91
[2024-12-16 11:23] VITALS: BP 160/88; BP 179/91; PULSE 66; O2SAT 98
--- NOTE | 2024-12-16 12:00 | W.DCSUMMARY ---
Discharge Summary
Discharge Data
Date of Admission: 12/15/24
Date of Discharge: 12/16/24
-
Pending Results: No
Hospital Course
Primary care physician: Scottie Kapadia
Outpatient resource technician: Luis Zarco
Inpatient consultants: [facility]
Procedures:
1. Right transfemoral TAVR
Primary Diagnosis:
1. Severe prosthetic aortic stenosis
Secondary Diagnoses:
1. Paroxysmal A-fib/a flutter
2. Aortic stenosis, s/p previous SAVR with 23 mm magna valve
3. Pre-existing RBBB
4. Coronary artery disease, prior CABG
5. CKD 3
6. Thoracic aortic aneurysm
7. Prior CVA
HPI: 84-year-old male was electively admitted on 12/15/2024 for TAVR due to severe prosthetic aortic stenosis
Hospital course: Patient was taken to the [facility] and underwent right trans femoral TAVR #23 mm Pettit Resilia TAVR valve by Drs. Desire Díaz and Luis An. Postprocedure, patient rhythm was atrial fibrillation with right bundle branch block
with transvenous pacer backup. Patient became agitated and sheath was removed and hemostasis achieved with manual pressure. Groin sites remained stable overnight. Creatinine 1.6 with baseline at 1.5. Chest x-ray without acute pulmonary
abnormality and EKG with atrial flutter. Predischarge TTE reported an EF of 52-56%, mild to moderate mitral regurgitation, and mildly dilated left atrium. Aortic valve gradients 20/12 mmHg, no aortic regurgitation. Normal right heart, pulmonary
artery systolic pressure 36 mmHg. Patient ordered a rhythm monitor on discharge. INR for 12/19.
Home medication changes:
none
Discharge Plan
-
Patient Disposition: Home (Routine Discharge)
Discharge Diagnosis/Procedures: TF TAVR (12/15)
Condition: Good
Diet: Low Cholesterol and Low Sodium
Activity: No strenuous activity
Driving Restrictions: No driving for 1 week
Bathing Restrictions: OK to Shower
Blood Work: INR on 12/19
Specialty Instructions: Weigh Daily- Call MD for wt gain/loss 3 lbs overnight/5 lbs in 1 week
Referrals:
CT Transitional Care Nurse [Outside] - in one to two days
Referral Note:
The Cardiothoracic Transitional Care Nurse will call you to set up a visit in 1-2 days.
[facility] [Outside] - 01/19/25 11:30 am
Referral Note: Cardiac Rehab Orientation appointment is on 01/19/2025@ 11:30am.
The Cardiac Rehab gym is located on the first floor of the [facility].
Zahra Casper PA-C [Specified Professional Personl, Cardiology] - 01/24/25 4:00 pm
Referral Note: Your APPT with Neeta Contreras NP on 12/19 was CANCELLED
Scottie Kapadia DO [Family Provider, Family Practice] - in four to six weeks
Referral Note: Please make an apointment in four to six weeks.
Prescriptions:
New
acetaminophen 325 mg Tablet
650 mg PO Q4HPRN PRN (Reason: BAXTER, mild pain, or fever >101F) Qty: 0 0RF
Continued
diltiazem HCl 120 MG capsule,extended release 12 hr
120 - 240 mg PO BID
Rx Instructions:
patient can take up to 2 caps in the morning if having trouble controlling rate - this happens rarely
colchicine [Colcrys] 0.6 MG tablet
0.6 mg PO PRN PRN (Reason: gout flare)
tamsulosin [Flomax] 0.4 mg Capsule
0.4 mg PO QPM
levothyroxine [Synthroid] 125 mcg Tablet
125 mcg PO DAILY
Repatha Syringe 140 mg/mL Syringe
140 mg SC Q2W
hydrocodone-acetaminophen 5-325 mg Tablet
1 tab PO Q6H PRN (Reason: back pain)
donepezil [Aricept] 5 mg Tablet
10 mg PO DAILY
methylprednisolone 4 mg Tablet
4 mg PO DAILY
memantine 5 mg Tablet
5 mg PO QPM
sildenafil (pulm.hypertension) 20 mg Tablet
40 mg PO DAILY PRN (Reason: ED)
warfarin [Jantoven] 1 mg Tablet
2.5 mg PO DAILY
Discontinued
aspirin 81 mg Tablet,Chewable
81 mg PO DAILY
Discharge Orders:
Discharge Patient (As Directed); Ordered 12/16/24
Ordered By: Adriana Dunne
Care Plan Goals
Care Plan Goals:
Problem: Readiness for enhanced knowledge related to diagnosis and treatment plan
Goal: Understand your diagnosis and treatment plan needs, including medications if applicable.
Instructions: Know your diagnosis, underlying causes and treatment plan options, including medications if applicable. Consult with your health care team to learn about your diagnosis and treatment plan, including medications if applicable.
Discharge Date and Time
Print Language: ARMENIAN
--- NOTE | 2024-12-16 12:02 | CM ---
Chart reviewed. Patient is independent of ADLS, lives with his in a 2 STH, 0 SADI, 0 DME. Patient OOB ambulating the halls with Cardiac Rehab. Plan is for the patient to return home with CT Transitional RN. CM to follow
--- NOTE | 2024-12-16 13:00 | PTCARENOTE ---
Patient discharged to home. Discharge teaching provided to spouse and patient, they verbalized understanding. IV and telemetry removed. Rhythmin star monitor placed on patient. Patient escorted to main lobby
== END 2024-12-16 14:26 | disposition home or self-care (01) | DRG 267 ==
LOC: IVU 07:21
PROVIDERS: Physician Assistant Medical; ADMITTING PHYSICIAN Thoracic Surgery (Cardiothoracic Vascular Surgery); ATTENDING PHYSICIAN Student in an Organized Health Care Education/Training Program; CONSULT PHYSICIAN Internal Medicine Interventional Cardiology; FAMILY PHYSICIAN Family Medicine; OTHER PHYSICIAN Hospitalist
PROC: 02RF38Z Replacement of Aortic Valve with Zooplastic Tissue, Percutaneous Approach (ICD-10-PCS; 2024-12-15)
DX: T82.857A Stenosis of other cardiac prosthetic devices, implants and grafts, initial encounter (principal); Z00.6 Encounter for examination for normal comparison and control in clinical research program; F03.911 Unspecified dementia, unspecified severity, with agitation; I48.92 Unspecified atrial flutter; F05 Delirium due to known physiological condition; I48.0 Paroxysmal atrial fibrillation; I25.10 Atherosclerotic heart disease of native coronary artery without angina pectoris; I12.9 Hypertensive chronic kidney disease with stage 1 through stage 4 chronic kidney disease, or unspecified chronic kidney disease; N18.30 Chronic kidney disease, stage 3 unspecified; I34.0 Nonrheumatic mitral (valve) insufficiency; I71.20 Thoracic aortic aneurysm, without rupture, unspecified; I95.9 Hypotension, unspecified; E78.00 Pure hypercholesterolemia, unspecified; I45.10 Unspecified right bundle-branch block; I44.0 Atrioventricular block, first degree; M35.3 Polymyalgia rheumatica; M10.9 Gout, unspecified; E03.9 Hypothyroidism, unspecified; N40.0 Benign prostatic hyperplasia without lower urinary tract symptoms; G89.29 Other chronic pain; M54.9 Dorsalgia, unspecified; Y71.2 Prosthetic and other implants, materials and accessory cardiovascular devices associated with adverse incidents; Z95.1 Presence of aortocoronary bypass graft; Z86.73 Personal history of transient ischemic attack (TIA), and cerebral infarction without residual deficits; Z79.01 Long term (current) use of anticoagulants; Z79.82 Long term (current) use of aspirin
CPT/HCPCS: 33361; 36415; 71045; 71046; 80048; 80053; 81003; 81015; 82248; 82962; 83036; 83880; 85025; 85027; 85347; 85610; 86850; 86900; 86901; 87070; 93005; 93308; 93321; 93325; C1760; C1769; C1894; Q9967

== ENCOUNTER → 2025-01-04 07:04 | Outpatient (REF) | payer MEDICARE, OTHER, SELFPAY ==
[2025-01-04 07:35] LABS: Hematocrit 45.1 % (39.0-52.0); Hemoglobin 15.1 g/dL (13.0-18.0); Mean Corp Hgb Conc. 33.5 g/dL (33.0-37.0); Mean Corpuscular Volume 94.5 fL (80.0-94.0); Nucleated Red Blood Cells % 0 % (-); Platelet Count 136 10^3/uL (130-400); Red Cell Dist. Width 13.9 % (11.5-14.5)
[2025-01-04 08:04] LABS: ALT (SGPT) 34 U/L (0-50); AST (SGOT) 24 U/L (17-59); Albumin 4.4 g/dl (3.5-5.0); Alkaline Phosphatase 58 U/L (38-126); Blood Urea Nitrogen 42 mg/dl (9-20); Calcium 9.4 mg/dl (8.4-10.2); Carbon Dioxide 28 mmol/L (22-30); Chloride 104 mmol/L (98-107); Glucose 165 mg/dl (70-99); Potassium 4.6 mmol/L (3.5-5.1); Sodium 138 mmol/L (135-145); Total Protein 6.6 g/dl (6.3-8.2); eGFR 42.22
[2025-01-04 08:38] LABS: TSH 0.58 uIU/ml (0.47-4.68)
[2025-01-04 08:52] LABS: Glycohemoglobin (HgbA1c) 6.4 % (4.0-5.6)
[2025-01-06 02:55] LABS: Total T3 (Sendout) 49 ng/dL (80-200)
== END ==
LOC: REG 07:04
PROVIDERS: ATTENDING PHYSICIAN Internal Medicine Endocrinology, Diabetes & Metabolism; FAMILY PHYSICIAN Family Medicine; OTHER PHYSICIAN Family Medicine
DX: R73.03 Prediabetes (principal); E06.3 Autoimmune thyroiditis
CPT/HCPCS: 36415; 80053; 83036; 84436; 84443; 84480; 85025

== ENCOUNTER 2025-02-02 09:36 | Day surgery (SDC) | payer MEDICARE, OTHER, SELFPAY ==
[2025-02-02 10:09] VITALS: BMI 23.5
[2025-02-02 10:18] LABS: INR 1.81; PT 21.5 Sec (11.4-14.6)
--- NOTE | 2025-02-02 10:57 | ITS.CL.CARDI ---
Plastic Tubing Insulation Supervisor - Cardioversion
Cardioversion
Procedure Report:
Procedure: Direct current electrical cardioversion
Pre-operative diagnosis: Persistent atrial fibrillation
Post-operative diagnosis: Persistent atrial fibrillation status post DC cardioversion to sinus rhythm
Anesthesia: MAC
Attending Physician: Pb Vanessa MD
Procedure Description: The patient was brought to the electrophysiology laboratory in the fasting state. Adherence to anticoagulation regimen was confirmed. Informed consent was obtained from the patient prior to the start of the procedure.
Electrodes were placed on the patient and connected to an external defibrillator. Monitoring of blood pressure, ECG tracings, and pulse oximetry was initiated. The pads were applied to the patient in the anterior and posterior positions. The patient
was sedated by the anesthesiologist. A 200 joule biphasic synchronized shock was delivered to the patient under MAC anesthesia. Sinus rhythm was successfully restored. The patient recovered uneventfully from MAC anesthesia. There were no immediate
post-procedure complications. The patient left the lab in good condition. The attending physician was present throughout the entire procedure.
Impression: Successful direct current cardioversion with latter-day of sinus rhythm after one 200 joule biphasic synchronized shock.
== END 2025-02-02 11:35 | disposition home or self-care (01) ==
LOC: CATH 09:36
PROVIDERS: ATTENDING PHYSICIAN Internal Medicine Cardiovascular Disease; FAMILY PHYSICIAN Family Medicine; OTHER PHYSICIAN Internal Medicine Interventional Cardiology
DX: I48.19 Other persistent atrial fibrillation (principal); Z95.2 Presence of prosthetic heart valve; Z79.899 Other long term (current) drug therapy; Z79.890 Hormone replacement therapy; Z79.01 Long term (current) use of anticoagulants; I12.9 Hypertensive chronic kidney disease with stage 1 through stage 4 chronic kidney disease, or unspecified chronic kidney disease; N18.30 Chronic kidney disease, stage 3 unspecified
CPT/HCPCS: 85610; 92960; 93005

== ENCOUNTER → 2025-02-16 06:50 | Outpatient (REF) | payer MEDICARE, OTHER, SELFPAY | LOC: RCS 06:50 | PROVIDERS: ATTENDING PHYSICIAN Physician Assistant Medical; FAMILY PHYSICIAN Family Medicine | DX: Z95.2 Presence of prosthetic heart valve (principal) | CPT/HCPCS: 93306 ==

== ENCOUNTER → 2025-02-25 09:22 | Outpatient (REF) | payer MEDICARE, OTHER, SELFPAY ==
[2025-02-25 11:13] LABS: Hematocrit 44.3 % (39.0-52.0); Hemoglobin 15.1 g/dL (13.0-18.0); Mean Corp Hgb Conc. 34.1 g/dL (33.0-37.0); Mean Corpuscular Volume 96.1 fL (80.0-94.0); Nucleated Red Blood Cells % 0 % (-); Platelet Count 136 10^3/uL (130-400); Red Cell Dist. Width 13.4 % (11.5-14.5)
[2025-02-25 11:40] LABS: ALT (SGPT) 46 U/L (0-50); AST (SGOT) 29 U/L (17-59); Albumin 4.5 g/dl (3.5-5.0); Alkaline Phosphatase 52 U/L (38-126); Blood Urea Nitrogen 38 mg/dl (9-20); Calcium 9.6 mg/dl (8.4-10.2); Carbon Dioxide 30 mmol/L (22-30); Glucose 117 mg/dl (70-99); Magnesium 1.9 mg/dl (1.6-2.3); Potassium 4.5 mmol/L (3.5-5.1); Sodium 134 mmol/L (135-145); Total Protein 6.7 g/dl (6.3-8.2); eGFR 45.62
[2025-02-25 11:45] LABS: Chloride 101 mmol/L (98-107)
[2025-02-25 11:54] LABS: Free T3 2.93 pg/ml (2.77-5.27)
== END ==
LOC: REG 09:22
PROVIDERS: ATTENDING PHYSICIAN Family Medicine; FAMILY PHYSICIAN Family Medicine
DX: K59.00 Constipation, unspecified (principal); E03.9 Hypothyroidism, unspecified
CPT/HCPCS: 36415; 80053; 83735; 84439; 84481; 85025

== ENCOUNTER 2025-03-01 11:34 | Inpatient (IN) | payer MEDICARE, OTHER, SELFPAY ==
[2025-03-01] VITALS (13 sets, daily range): BP systolic 139–186; BP diastolic 91–122; BMI 22.6
--- NOTE | 2025-03-01 08:20 | CON.NEURO4 ---
Addendum entered and electronically signed by Jaime Castellon MD 03/01/25 11:40:
Studies reviewed.
I have personally examined the patient. I reviewed and agree with the GIRLS SWIMMING COACH's Note.
My addenda:
Awake, interactive. No acute distress.
Speech hoarse and reduced output.
Follows 1-step requests w/ difficulty. No tremor.
Extra-ocular movements grossly intact.
Facial movements full and symmetric. Hearing intact to normal conversational volume.
Normal UE movements bilaterally.
Neck: full ROM.
Chest: no dyspnea
Heart: no JVD
Ext: (-) Clubbing, (-) Cyanosis, (-) Edema
IMPRESSIONS/RECOMMENDATIONS:
Abrupt onset of change in mental status as well as being found down with dysarthria. Differential diagnosis includes convulsive syncope, acute ischemic stroke, focal onset generalized seizures.
Based on the now completed MRI of brain not demonstrating an acute ischemic stroke, as well as the EEG not demonstrating epileptiform features, it is more likely that the patient is either experiencing encephalopathy due to toxic metabolic event or
hypotension.
Check MRI of brain, completed
Check EEG, completed
When patient is stable, check orthostatic blood pressures
Check blood work for metabolic causes
At this time, continue patient's usual donepezil and memantine
D/W patient / family / nursing
All questions answered.
Will continue to follow patient.
Original Note:
Documented by User: Katherine Ernst NP 03/01/25 10:42
Consultation - Neurology 4
-
CONSULTING PHYSICIAN: Jaime Castellon MD
REFERRING PHYSICIAN: ER/Dr. Jessica
DICTATED BY: BLAIRE Langston
DATE/TIME OF REQUEST: 03/01/25
DATE/TIME OF CONSULTATION: 03/01/25
Reason for Consultation: Stroke Alert
History of Present Illness:
This is a 84-year-old (left/right) handed male who has presented to the hospital with report of being found on the ground dysarthric with flailing movements. Patient is followed by Neurology Dr. Isis Herrmann as an outpatient for a history of an
embolic appearing R MCA ischemic stroke in 2012 and memory changes with behavioral disturbance. Patient's reports that she saw him at 0430 this morning ambulating and at his baseline. She woke up at 0600 and reports he was sound asleep. Around
0625 she found him on the floor next to their bed confused, speech was just garbled sounds, he was stiff, and with tremulous movements. EMS activated a stroke alert en route to the ER. CT head and CTA head/neck were obtained on arrival and are
negative for any acute abnormalities, Aspect score 10. CT brain perfusion demonstrates a core of 12ml, penumbra of 10ml, and mismatch volume -2ml in the area of his previous R MCA stroke, unclear if this is artifactual. NIHSS is 6. He is not a
candidate for TNK/IAT due to warfarin usage and INR level 3.18 and no LVO. Patient denies any headache, dizziness, vision changes, numbness, and focal weakness. He reports that last evening his INR was 3. He notes that about 10 days ago he was using
a chain saw cutting down a tree and a branch hit his right carrington and gave him a laceration. His leg had been red/swollen/painful and he has completing a short course of antibiotics. Per his family, at baseline his speech is clear and he is
independent with all ADLs.
Past Medical History: Afib (Coumadin), R MCA ischemic stroke 2013, memory loss with behavioral disturbance, CAD, HTN, HLD, hypothyroidism, CKD, JORDIN, diverticulosis, gout, polymyalgia rheumatica, BPH, transient global amnesia, lyme disease
Surgical History: TAVR, CABG, cardiac ablation, tonsillectomy, B/L inguinal hernia repair, b/l cataract removal, L knee arthroscopy, JOT heart monitor.
Family History: Reviewed and noncontributory.
Social History: Denies tobacco and illicit drug use. Rare alcohol. He is a retired ER physician.
Allergies: Pramipexole, meperidine.
Home Medications: See below.
Review of Symptoms:
Patient denies any fever, headache, chest pain, shortness of breath, GI or symptoms.
�Per the HPI.�All systems are reviewed negative except above.
Physical Exam:
The patient is afebrile, abdomen is nondistended, breathing is unlabored, skin is warm, RLE with a medium sized wound with surrounding erythema.
NIH Stroke Scale:
I performed the NIH stroke scale on the patient on 03/01/25 at 0815. The patient scored 6 points on the NIH stroke scale assessment, which were assigned as follows: See below.
Neurologic Examination:
The patient is awake, alert and oriented to place and year, not month and inconsistent with person. He is able to follow commands and answer questions appropriately. There is no aphasia. There is moderate dysarthria. On cranial nerve assessment,
pupils are 3 mm bilateral, round and reactive to light and accommodation. There is a left conjunctival hemorrhage. Visual fox are full. Extraocular movements are intact. There is no facial asymmetry. Hearing is intact bilaterally to normal
conversation volume. Tongue palate and uvula are midline. Sternocleidomastoid strengths are full bilaterally. Motor strengths are 5-/5 bilateral upper and lower extremities on medical research [place] scale. There is slight drift in all four
extremities seemingly due to poor effort. Distal bilateral upper extremities with a medium amplitude arrhythmic tremor at rest and with exertion. Body is severely rigid. Deep tendon reflexes are 2+ bilateral upper and lower extremities and Babinski
is absent bilaterally. There was no extinction noted on double simultaneous stimulation. Coordination is intact by finger to nose bilaterally.
Lab Results: See below.
Neuro Imaging:
1. CT Head 03/01/25: No acute intracranial abnormality. ASPECT score: 10.
2. CTA head/neck 03/01/25: CTA Head: No significant arterial stenosis. No large vessel occlusion No aneurysm. CTA Neck: No significant arterial stenosis. No large vessel occlusion. There is asymmetric soft tissue stranding and edema along the lateral
aspect of the left trapezius extending into the soft tissues of the posterior shoulder. Additionally there is slight asymmetric thickening of the lateral left trapezius suspicious for a hematoma with surrounding soft tissue contusion.
3. CT brain perfusion 03/01/25: CBF 12ml, Tmax 10ml, Mismatch volume -2ml.
4. EEG 03/01/25: Likely unremarkable study for age despite low amplitudes bihemispherically equally.
Differentials for the patient's presentation include:
1. Altered mental status; etiology is likely toxic metabolic encephalopathy, however, cannot entirely exclude a small new stroke contributing to symptoms.
Patient has the following risk factors for their symptoms: Afib, coumadin, hx stroke, RLE wound
IV Tenecteplase/IAT candidacy: He is not a candidate for TNK/IAT due to warfarin usage and INR level 3.18 and no LVO.
Recommendations:
-MRI brain noncontrast pending.
-Continue home warfarin.
-Goal normotension.
-NIHSS and neurological checks per unit guidelines.
-Provide patient's family with a stroke education packet.
-Metabolic workup per primary team, checking blood work for abnormalities.
-LDL goal <70. LDL is pending. Continue home Repatha.
-Goal normoglycemia, hbA1c is pending.
-PT/OT/ST evaluations.
Discussed patient care with: Dr. Castellon, the patient, patient's family
Medications
-
Home Medications
�Medication �Instructions �Recorded
colchicine 0.6 mg tablet (Colcrys) 0.6 mg PO PRN PRN gout flare 06/20/21
diltiazem HCl 120 mg 120 - 240 mg PO BID Arrhythmia 06/20/21
capsule,extended release 12 hr
tamsulosin 0.4 mg capsule (Flomax) 0.4 mg PO QPM Urinary Issue 08/10/22
evolocumab 140 mg/mL subcutaneous 140 mg SC Q2W High Cholesterol 10/22/22
syringe (Repatha Syringe)
hydrocodone 5 mg-acetaminophen 325 1 tab PO Q6H PRN back pain 10/22/22
mg tablet
levothyroxine 125 mcg tablet 125 mcg PO DAILY Thyroid 10/22/22
(Synthroid)
donepezil 5 mg tablet (Aricept) 10 mg PO DAILY Neurological 10/06/24
Condition
methylprednisolone 4 mg tablet 4 mg PO DAILY Anti-Inflammatory 10/06/24
memantine 5 mg tablet 5 mg PO QPM Neurological Condition 11/02/24
sildenafil (pulm.hypertension) 20 40 mg PO DAILY PRN ED 11/02/24
mg tablet
warfarin 1 mg tablet (Jantoven) 2.5 mg PO DAILY Blood Clot 12/09/24
Prevention/Tx
acetaminophen 325 mg tablet 650 mg (2 x 325 mg) PO Q4HPRN PRN 12/16/24
BAXTER, mild pain, or fever >101F #0
tabs
NIH Stroke Score
Subsequent NIH Scale
Date of Subsequent NIH Scale: 03/01/25
Time of Subsequent NIH Scale: 08:15
NIH Stroke Score
Level of Consciousness: 0 - Alert
LOC Questions: 1-Answers one correctly
LOC Commands: 0-Performs both correctly
Best Horizontal Gaze: 0-Normal
Visual Fox: 0=Normal, no visual loss
Facial Palsy: 0=Normal, symmetrical
Motor - Right Arm: 1=Drift < 10 seconds
Motor - Left Arm: 1=Drift < 10 seconds
Motor - Right Le-Drift < 5 seconds
Motor - Left Le-Drift < 5 seconds
Limb Ataxia: 0-Absent
Sensation: 0-Normal
Best Language: 0-No aphasia
Dysarthria: 1-Mild slurring
Extinction and Inattention: 0-No abnormality
NIH Total Score:: 6
Modified [place] (mRS) Score
Modified [place] Scale (mRS): Moderately severe disability. Unable to attend to bodily needs/walk.
Score: 4
Alteplase Contraindication
Inclusion and Exclusion criteria reviewed: Yes

Documented by User: Jaime Castellon MD 03/01/25 11:30
NIH Stroke Score
NIH Stroke Score
NIH Total Score:: 6
Modified [place] (mRS) Score
Score: 4
--- NOTE | 2025-03-01 08:30 | ED.CVA ---
History of Present Illness
General
Chief Complaint: CVA/TIA Symptoms
Source: patient, records, spouse, family and ambulance crew
Exam Limitations: clinical condition
Time Seen by Provider: 03/01/25 08:24
Nursing documentation reviewed up to this point in time: agreed with
Onset of Stroke Symptoms
Onset of symptoms known: No
Time pt last seen normal is known: Yes
Date last time pt seen normal: 02/28/25
History of Present Illness
History of Present Illness:
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
month), CKD who presents to the emergency department via EMS as a prehospital stroke alert for a change in mental status. Per EMS report they were called by patient's who reported that he was last seen normal at 4:30 AM. She later heard some
shuffling in the kitchen and went to check on him and found him on the ground severely confused, very tremulous. Slurred speech was noted. Per EMS on their arrival his blood glucose was high normal, he was moderately hypertensive but otherwise
normal vitals. When I ask the patient how he is doing he says that he feels okay although he is clearly confused. He denies being in any pain. He denies feeling focal weakness, rest of history somewhat limited/unreliable due to his clinical
condition. When asked about a fall this morning he seems to indicate that he fell while walking his dog but again seems very confused about the details. Per ECW has recently been on Keflex for redness in the right leg after being struck by a piece
of wood--patient mentions this may have happened while cleaning up a downed tree.
UPDATE
Patient's Roselyn is now at bedside as well as his daughters and they help provide better collateral history: Sounds like patient baseline very clear speech, ambulatory and functional. He was apparently normal last night only notable recent
history is that he has been on Keflex for the past few days for some right lower leg redness after striking it while cutting a down tree. This morning his reports that she woke up around 6 AM and he was sleeping in bed comfortably. She says
about 20 minutes later she found him next to the bed very stiff and tremulous and acutely confused. She noted that he was initially having difficulty speaking and any words that came out sounded slurred. EMS was called to bring him to hospital.
He still appears confused here but it sounds like his clinical status is improved compared to when she initially found him. No reported history of seizures she says that he does have some mild short-term memory lapses at baseline. No reported
recent adjustments to his medications aside from recent course of Keflex; his reports that there were some discussions about potentially decreasing his chronic steroid dose�he has been on 4 mg of methylprednisolone for PMR but apparently PCP
thought it could be contributing to some confusion and there were discussions about decreasing dose. No changes yet.
Past History
Past History
ED Past Medical History: Arrthythmia (Atrial fibrillation), CAD, CVA, HTN, Hypercholesterolemia, Renal failure, Hypothyroidism and Other (Kidney stones, sleep apnea, aortic valve replacement, diverticulosis)
ED Past Surgical History: Cardiac (Aortic valve replacement)
Social History
Tobacco: Non-smoker
Alcohol: None
Drug: None
Personal:
Living: with family
Employment: Retired (emergency department physician)
Family History
Family History: Other (Reviewed and Noncontributory)
Review of Systems
Review of Systems
Unable to obtain full review of systems at this time due to: due to acuity
All Other Systems: Not applicable
Phy Exam
Physical Exam
Physical Exam:
General: Awake, alert, oriented x2; very tremulous
Head: Normocephalic, atraumatic
Eyes: Patient has a right subconjunctival hemorrhage; pupils are equal round reactive to light bilaterally, extraocular movements are intact
Throat: Airway intact, handling secretions
Neck: Trachea midline, supple without meningismus
Lungs: Clear to auscultation bilaterally, no wheezing, rales, rhonchi appreciated
Heart: Regular rate and ostensibly regular rhythm without ectopy, systolic murmur noted
Abd: Soft, non distended, no apparent tenderness
Rectal: Brown stool in rectal vault Hemoccult negative
Neuro: Cranial nerves are intact, mild dysarthria, no aphasia, strength is generally diminished in all extremities against gravity although symmetric without focal deficit; sensory exam grossly intact
Skin: Patient has bruises on his extremities of varying age; patient has a small superficial wound in the right anterior lower leg with some surrounding bruising, faint erythema no warmth, no drainage, no induration or fluctuance; he has a hematoma
on the left posterior shoulder
Extremities: Warm and well-perfused with good pulses throughout; skin findings as above
Scores
NIH Stroke Score
Level of Consciousness: 0 - Alert
LOC Questions: 1-Answers one correctly
LOC Commands: 0-Performs both correctly
Best Horizontal Gaze: 0-Normal
Visual Fox: 0=Normal, no visual loss
Facial Palsy: 0=Normal, symmetrical
Motor - Right Arm: 1=Drift < 10 seconds
Motor - Left Arm: 1=Drift < 10 seconds
Motor - Right Le-Drift < 5 seconds
Motor - Left Le-Drift < 5 seconds
Limb Ataxia: 0-Absent
Sensation: 0-Normal
Best Language: 0-No aphasia
Dysarthria: 1-Mild slurring
Extinction and Inattention: 0-No abnormality
NIH Total Score:: 6
Thrombolytic Contraindication
Inclusion and Exclusion criteria reviewed: Yes
Reasons for NON-Tx with Thrombolytics ABSOLUTE Exclusions: Patient taking oral anticoagulant and last dose within 48 hours
Heart Failure Risk
Heart Failure Risk Score: Not Applicable
Heart Score for Chest Pain Patients
STEMI patient?: Not applicable
Withdrawal Assessment of Alcohol
Withdrawal Assessment Completed?: Not applicable
Course
Orders/Labs/Results
Orders:
Orders
03/01/25 08:18
CT BRAIN PERF STROKE ALERT Urgent
Reason For Exam: aphasia
CT HEAD/NECK ANG STROKE ALERT Stat
Reason For Exam: stenosis
03/01/25 08:20
CT HEAD STROKE ALERT W/o Cont Urgent
Comment:
Reason For Exam: slurred speech, altered mental status
03/01/25 08:24
Electrocardiogram (*1) Urgent
Reason for Study: TIA/Stroke
NEUROLOGY CONSULT Urgent
Consulting Provider: Jaime Moore
Was physician already notified: Yes
EKG- Treatment ONCE
03/01/25 08:54
CPK [Creatine Phosphokinase] Urgent
Complete Blood Count/With Diff Urgent
Comprehensive Metabolic Panel Urgent
PTT Urgent
Prothrombin Time Urgent
TSH Reflex To Free T4 Urgent
Urinalysis Reflex To Culture Urgent
Date Specimen was Collected: 03/01/25
Time Specimen was Collected: 08:53
Urine Microscopic Reflex Cult Urgent
03/01/25 08:58
MR Brain Without Contrast Routine
Reason For Exam: new stroke
Recent pill cam endoscopy?: No
03/01/25 09:04
CR Chest Portable - 1 View Urgent
Comment:
Reason For Exam: confusion
Reason Study Needs to be Portable: Unable to Transport
03/01/25 09:06
Troponin I Urgent
03/01/25 09:37
EEG, 41-60 minutes Routine
Neurology Consult:: DR. MOORE
03/01/25 11:05
VANCOMYCIN Pharmacy to Dose [VANCOCIN Pharmacy to Dose] 1 each Pharmacy To Prepare [Call Pharmacy To Prepare] 0 ml IV PER PROTOCOL
03/01/25 11:07
Admit/Transfer Patient As Directed
Co-Sign Provider:
Level of Care: Inpatient admission
Assign to:: IMU- Intermediate Care
Physician / Group: kamel, kamal
Diagnosis: Acute encephalopathy
Reason for Hospitalization: Acute encephalopathy
Expected length of stay greater than two midnights?: Yes
ELOS- Estimated Length of Stay in days: 2
I certify the patient meets the requirements for IP care: Yes
03/01/25 11:08
PRN Pain Medication Management As Directed
May give lesser potent ordered pain med per pt: Yes
preference::
Protocol:: Medication orders for pain may be administered in a
manner that supports deferring to patient preference
when the pt is:
- Requesting an ordered lesser potent pain medication.
Least to most potent pain medications are defined
as: acetaminophen < NSAID < tramadol < opioids
(morphine, oxycodone, hydromorphone).
- Requesting a lesser dose of the same medication IF
ORDERED.
- Requesting a less intrusive route of administration
if both routes are prescribed by the provider (PO <
IV).
03/01/25 11:09
Vancomycin [Vancocin] 2,000 mg 0.9% Sodium Chloride 500 ml [Nss] 500 ml IV NOW
03/01/25 11:10
Cefepime HCl [Maxipime] 1,000 mg IV NOW STA
03/01/25 11:11
Sterile Water [Sterile Water For Injection] 10 ml IV NOW STA
03/01/25 11:12
Code Status As Directed
Resuscitation Status: Do not resuscitate
Reached after discussion with pt or family/Healthcare POA: Yes
DNR Bracelet Application ONCE
03/01/25 11:15
Blood Culture Q30M
ANY Source: Blood/Venous
Specimen Description:
0.9% Sodium Chloride 1000 ml [Nss] 1,000 ml IV 80 mls/hr
03/01/25 11:45
Blood Culture Q30M
ANY Source: Blood/Venous
Specimen Description:
03/01/25 12:00
Troponin I Urgent
Cefepime HCl [Maxipime] 1,000 mg IV Q8H
Abnormal Lab Results
03/01/25 03/01/25
08:54 09:06
WBC 11.1 H 10^3/uL
(4.8-10.8)
RBC 3.85 L 10^6/uL
(4.70-6.10)
Hgb 12.3 L g/dL
(13.0-18.0)
Hct 36.8 L %
(39.0-52.0)
MCV 95.6 H fL
(80.0-94.0)
MCH 31.9 H pg
(27.0-31.0)
Plt Count 101 L D 10^3/uL
(130-400)
Abs Immat Gran (auto) 0.2 H 10^3/uL
(0-0.05)
Absolute Neuts (auto) 9.3 H 10^3/uL
(1.4-6.5)
Absolute Lymphs (auto) 0.7 L 10^3/uL
(1.2-3.4)
Absolute Monos (auto) 0.8 H 10^3/uL
(0.1-0.6)
Immature Gran % 1.9 H %
(0-0.5)
Neutrophils % 83.7 H %
(42.2-75.2)
Lymphocytes % 6.1 L %
(20.5-51.1)
PT 32.1 H Sec
(11.4-14.6)
APTT 38.9 H Sec
(23.4-35.0)
Sodium 131 L mmol/L
(135-145)
BUN 43 H mg/dl
(9-20)
Creatinine 1.5 H mg/dL
(0.7-1.3)
Glucose 151 H mg/dl
(70-99)
Creatine Kinase 176 H U/L
(55-170)
Troponin I 0.106 H* ng/ml
Total Protein 5.3 L g/dl
(6.3-8.2)
Albumin 3.3 L g/dl
(3.5-5.0)
Urine Albumin (Reflex) 2+ A
(Neg - Trace)
03/01/25 08:54
03/01/25 08:54
Vital Signs
Initial and Last Documented VS:
Initial Vital Signs
Temp Pulse Resp BP Pulse Ox
36.3 C 82 16 186/97 96
03/01/25 08:20 03/01/25 08:20 03/01/25 08:20 03/01/25 08:20 03/01/25 08:20
Last Documented Vital Signs
Temp Pulse Resp BP Pulse Ox
36.3 C 79 20 172/92 97
03/01/25 08:20 03/01/25 09:45 03/01/25 09:45 03/01/25 09:04 03/01/25 09:35
MDM/Problems Addressed
Differential Diagnosis Includes:
CVA�ischemic or hemorrhagic; seizure with postictal period; toxic metabolic encephalopathy�polypharmacy, infection, electrolyte derangement, etc; delirium
MDM/Problems Addressed:
84-year-old male with history as noted presents via EMS as a prehospital stroke alert after being found confused and tremulous this morning last known normal reportedly 4:30 AM. Vitals and exam are as above. He was met by neurology and myself on
arrival�NIH stroke scale is noted. He was taken directly for CT head reviewed in real-time showed no acute hemorrhage, changes related to old stroke noted. Awaiting results of CT angio/CT perfusion. Would not be thrombolysis candidate as he is on
Coumadin. Neurology suspect more likely toxic metabolic encephalopathy rather than acute CVA at least initially; will monitor closely pending rest of workup.
On review of CT perfusion there was question of penumbra however neurology thinks likely this is related to artifact. CT angio no LVO. Neurology at bedside will perform EEG to evaluate for any signs of seizure activity. Will need MR to completely
rule out ischemia. Continue workup for other causes of confusion. Patient will require admission for continued evaluation and treatment.
Initial labs reviewed: CBC shows marginal leukocytosis 11.1 similar compared to few days ago. His hemoglobin has had an acute drop with a hemoglobin of 12.3 today from prior values around 15. He also has thrombocytopenia with a platelet count of
101. At baseline 120s to 130s. Chemistry shows stable CKD with a creatinine of 1.5; he does have elevated BUN at 43. This appears to be baseline for him�no reported GI bleeding and his Hemoccult is negative today. Suspect anemia related to
hematomas noted on exam (shoulder and lower leg). Currently planning for MRI brain per neurology recommendation. Admit for continued management�discussed case with hospitalist for admission.
Chronic conditions affecting care:
Atrial fibrillation on Coumadin, aortic stenosis status post TAVR, CAD status post CABG, CKD
Acute Exacerbation and/or Progression of Chronic Illness:
Acutely hypertensive
Acute Exacerbation and/or Progression of Chronic Illness: HTN
*Radiology
Radiology exam reviewed: preliminary read by ED provider and radiology read reviewed
*Pulse Oximetry
Patient hypoxic: no (96%)
*EKG
Interpreted by ED Provider?: Yes
Comparison EKG: no changes
Heart Rate: 80
Rate: normal
Rhythm: sinus
[place]: left axis deviation
Interval: first degree heart block
QRS Pattern: right bundle branch block
Ischemia: non-specific ST changes
*Critical Care Note
Total Time (30-74mins, 75-104mins- exclusive of procedures): 40
comment:
Critical care statement: A total of 40 minutes of critical care time was provided for this patient. This includes management of unstable vital signs, evaluation of the patient at bedside, frequent reassessment, discussion with
consultants/hospitalist, and review of pertinent medical records. This time was separate from time utilized to perform any aforementioned documented procedures
Data Reviewed
Review of Other/Old Records Reveals: Labs, Records and Discharge Summary
Source: patient, records, family and ambulance crew
Patient Management
Discussion with other providers: Hospitalist (Discussed with hospitalist) and Configuration Management Manager (Discussed with neurology)
Escalation/DeEscalation of care consider admission/obs:
Admission indicated
ED Attending Note
-
Portions of this chart may have been created with voice recognition software.� Occasional wrong word or��sound alike� substitutions may have occurred due to the inherent limitations of voice recognition software.
Discharge Plan
Departure
Patient Disposition: Admit
Date of Disposition: 03/01/25
Time of Disposition: 09:42
Admit to doctor: Galo
Presentation/result/management discussed w/ accepting MD/DO: Hospitalist
Discharge Problem:
Acute encephalopathy, Acute anemia
Interventions
Interventions:
*Risk Screen - Suicide Last Done: 03/01/25 08:20
*General Assessment Last Done: 03/01/25 09:35
*Neglect/Abuse Screening Last Done: 03/01/25 08:20
*ED COVID-19 Vaccine History Last Done: 03/01/25 09:03
*ED Influenza Vaccine History Last Done: 03/01/25 09:03
[facility] Fall Risk Assessment Tool Last Done: 03/01/25 08:45
ED- Pulmonary Assessment Last Done: 03/01/25 09:35
ED- Neurological Assessment Last Done: 03/01/25 09:35
ED- Cardiac Assessment Last Done: 03/01/25 09:35
ED Swallowing Screen Last Done: 03/01/25 09:35
[2025-03-01 09:07] LABS: Hematocrit 36.8 % (39.0-52.0); Hemoglobin 12.3 g/dL (13.0-18.0); Mean Corp Hgb Conc. 33.4 g/dL (33.0-37.0); Mean Corpuscular Volume 95.6 fL (80.0-94.0); Nucleated Red Blood Cells % 0 % (-); Platelet Count 101 10^3/uL (130-400); Red Cell Dist. Width 13.4 % (11.5-14.5)
[2025-03-01 09:20] LABS: INR 3.18; PT 32.1 Sec (11.4-14.6)
[2025-03-01 09:21] LABS: APTT 38.9 Sec (23.4-35.0)
[2025-03-01 09:27] LABS: ALT (SGPT) 30 U/L (0-50); AST (SGOT) 28 U/L (17-59); Albumin 3.3 g/dl (3.5-5.0); Alkaline Phosphatase 42 U/L (38-126); Blood Urea Nitrogen 43 mg/dl (9-20); Calcium 9.0 mg/dl (8.4-10.2); Carbon Dioxide 28 mmol/L (22-30); Chloride 98 mmol/L (98-107); Glucose 151 mg/dl (70-99); Potassium 4.3 mmol/L (3.5-5.1); Sodium 131 mmol/L (135-145); Total Protein 5.3 g/dl (6.3-8.2); eGFR 45.62
[2025-03-01 09:31] LABS: Urine Character Clear (Clear)
[2025-03-01 09:51] LABS: Troponin I 0.106 ng/ml
[2025-03-01 10:16] LABS: Urine Red Blood Cell 0-2 /HPF (0-2); Urine Squamous Cell 0-2 /LPF (Few); Urine White Cell 0-2 /HPF (0-5)
--- NOTE | 2025-03-01 10:18 | EEG.RPT ---
Electroencephalogram Report
Recording
Date of EE03/01/25
Type of EEG: Routine
Length of EEG recordin minutes
Done with Video Recording: Yes
Patient Status: Emergency Room
Recording Conditions: Awake and Drowsy
Hyperventilation Performed: No
Photic Stimulation Performed: Yes
Report
LESS THAN 1 HOUR REPORT
LESS THAN 1 HOUR EEG INTERPRETATION:
Likely unremarkable study for age despite low amplitudes bihemispherically equally
CLINICAL CORRELATION:
Although normative values not been established for a person of this advanced age the patient�s symmetry of the background suggests that this study was unremarkable.
Clinical correlation is advised.
METHODS:
A 21 channel digitized electroencephalogram (EEG) was performed at the bedside in the emergency department. The 10/20 international system of electrode placement was used with ECG and lateral/vertical eye movements recorded. [employer] QEEG analysis
system was utilized.
ELECTROENCEPHALOGRAPHER IMPRESSION(S):
Quality of study
Good
Background
Low amplitude
Fair anterior-posterior voltage gradient differentiated
Alpha maximal background demonstrated, minimally maintained
Sleep
Drowsiness present
Hyperventilation
Not performed
Photic Stimulation
Didn�t activate the record
ECG
Unremarkable
--- NOTE | 2025-03-01 10:49 | HPS.HSE ---
Family Physician
-
Family Physician: Scottie Kapadia
Chief Complaint
-
Stroke alert
History of Present Illness
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
TAVR, CKD, hypertension, hyperlipidemia, hypothyroidism, JORDIN, gout, polymyalgia rheumatica, and memory changes with behavioral disturbance. who came to the ER as a stroke alert, He was reportedly at baseline at 0430 when his saw him ambulating.
At 0600, he was asleep in bed. Around 0625, his found him on the floor next to the bed, confused, speech reduced to garbled sounds, stiff, and tremulous. EMS was activated and a stroke alert was initiated en route.
On arrival to ED:
CT Head and CTA Head/Neck: No acute abnormalities, ASPECT score 10.
CT Perfusion: Core 12 mL, penumbra 10 mL, mismatch -2 mL in prior R MCA stroke region (possible artifact).
NIHSS: 6.
MRI brain shows: No acute intracranial abnormality.
Not a candidate for TNK/IAT due to warfarin use (INR 3.18) and no LVO.
Recently completed a short course of antibiotics for right [place]rington cellulitis after trauma with a tree branch ~10 days ago.
Collateral history from and daughters: Baseline speech is clear, ambulatory, independent with ADLs. No seizure history. Mild short-term memory lapses at baseline. Recent Keflex course for leg redness. No recent medication changes except
discussion about tapering methylprednisolone (currently 4 mg daily).
Medical History
Past Medical History
Past Medical History: Reports Other
Additional Past Medical History:
Reports Other (CAD status post CABG in 2010, aortic stenosis status post bioprosthetic aortic valve replacement in 2010 complicated by moderate to severe aortic regurgitation, paroxysmal atrial fibrillation, hypercholesteremia, hypertension, CKD,
gout, embolic CVA, right bundle branch block, dementia, polymyalgia )
Past Surgical History: Reports Other
Additional Past Surgical History:
(TAVR, CABG )
Social History
Tobacco: Non-smoker
Alcohol: None
Drug: None
Personal:
Living: With Family
Employment: Retired
Family History
Family History: Not pertinent
Allergies / Home Medications
Allergies reflects when Allergies were last updated in [employer].
Home Medications with original date entered in [employer]
Allergy/Medication List:
Allergies
Allergy/AdvReac Type Severity Reaction Status Date / Time
pramipexole (From Mirapex) Allergy Confusion Verified 02/02/25 10:10
meperidine HCl (From Demerol) AdvReac Mild Nausea / Verified 02/02/25 10:10
Vomiting
Home Medications
colchicine 0.6 mg tablet (Colcrys) 0.6 mg PO PRN PRN gout flare 06/20/21
diltiazem HCl 120 mg capsule,extended release 12 hr 120 mg PO BID Arrhythmia 06/20/21
evolocumab 140 mg/mL subcutaneous syringe (Repatha Syringe) 140 mg SC Q2W High Cholesterol 10/22/22
hydrocodone 5 mg-acetaminophen 325 mg tablet 1 tab PO DAILYPRN PRN back pain 10/22/22
levothyroxine 125 mcg tablet (Synthroid) 125 mcg PO DAILY Thyroid 10/22/22
donepezil 5 mg tablet (Aricept) 5 mg PO HS Neurological Condition 10/06/24
methylprednisolone 4 mg tablet 4 mg PO DAILY Anti-Inflammatory 10/06/24
warfarin 1 mg tablet (Jantoven) 1.5 mg PO QPM Blood Clot Prevention/Tx 12/09/24
acetaminophen 325 mg tablet 650 mg (2 x 325 mg) PO Q4HPRN PRN BAXTER, mild pain, or fever >101F #0 tabs 12/16/24
amoxicillin 875 mg-potassium clavulanate 125 mg tablet 1 tab PO BID LEG WOUND 03/01/25
tamsulosin 0.4 mg capsule 0.4 mg PO DAILY 03/01/25
Review of Systems
-
Unable to obtain full review of systems at this time due to: Acuity
History Source: Family
Physical Exam
Vital Signs
Vital Signs
Temp Pulse Resp BP Pulse Ox
97.4 F 79 20 172/92 97
03/01/25 08:20 03/01/25 09:45 03/01/25 09:45 03/01/25 09:04 03/01/25 09:35
Physical Exam
General: Appears in Distress, Pain and Appears Chronically Ill
HEENT: Moist mucous membranes; No [place] Conjunctivae (bilateral subconjunctiva hemorrhage )
Respiratory: Rales and Rhonchi
Cardiac: S1/S2 and Regular Rhythm
Breast: Deferred by me
GI: Soft, Non Tender, Non Distended and Normal Bowel Sounds
Genito-urinary: Deferred by me
Musculoskeletal: No Clubbing and Edema, Right Lower Extremity (redness with area of black necrosis.)
Skin: Warm and Rash; No Lesions
Neuro: Tremors; No Awake
Hematologic/Lymphatic: No Lymphadenopathy
Psych: Calm and Confused
Laboratory Results
-
03/01/25 08:54
03/01/25 08:54
Laboratory Results
PT 32.1 Sec (11.4-14.6) H 03/01/25 08:54
INR 3.18 03/01/25 08:54
APTT 38.9 Sec (23.4-35.0) H 03/01/25 08:54
Total Bilirubin 0.8 mg/dl (0.2-1.3) 03/01/25 08:54
AST 28 U/L (17-59) 03/01/25 08:54
ALT 30 U/L (0-50) 03/01/25 08:54
Alkaline Phosphatase 42 U/L (38-126) 03/01/25 08:54
Troponin I 0.106 ng/ml H* 03/01/25 09:06
Data Reviewed
-
Diagnostic Radiology: Report Reviewed by me
CT Scan: Report Reviewed by me
Medical Tests (Nuc Med, Echo, EKG etc): Report Reviewed by me
Lab Data: Labs Reviewed by me
Old Records: Reviewed
Impression/Plan
-
Impression:
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
TAVR, CKD, hypertension, hyperlipidemia, hypothyroidism, JORDIN, gout, polymyalgia rheumatica, and memory changes with behavioral disturbance. who came to the ER as a stroke alert, He was reportedly at baseline at 0430 when his saw him ambulating.
At 0600, he was asleep in bed. Around 0625, his found him on the floor next to the bed, confused, speech reduced to garbled sounds, stiff, and tremulous. EMS was activated and a stroke alert was initiated en route.
Plan:
Abrupt onset of altered mental status, dysarthria, and tremulous movements. Differential includes:
Acute ischemic stroke (ruled out by MRI)
Seizure or postictal state
Toxic/metabolic encephalopathy (sepsis cellulitis?, tickborne disease, West Nile virus,.. etc)
Hypotension or syncope
CT Head and CTA Head/Neck: No acute abnormalities, ASPECT score 10.
CT Perfusion: Core 12 mL, penumbra 10 mL, mismatch -2 mL in prior R MCA stroke region (possible artifact).
NIHSS: 6.
MRI brain shows: No acute intracranial abnormality.
By neurology in the ER
EEG: No epileptiform activity--> repeat pending
Ativan for agitation and tremors.
Infectious is consulted
Blood culture. On vancomycin and Zosyn
Consider LP
Pt/OT consult
check urine and serum drug screen
Paroxysmal atrial fibrillation (on Coumadin, recent cardioversion)
Currently in sinus rhythm.
Hold Coumadin.
Continue diltiazem
Right lower extremity cellulitis.
Wound consult.
Vancomycin/Zosyn
Supratherapeutic INR.
Daily INR.
Hold Coumadin
Troponin elevation
History of coronary artery disease status post
Type II IA.
Continue to monitor
History aortic stenosis
status post TAVR
Chronic kidney disease
creatinine stable
Polymyalgia rheumatica
Continue steroid
History of R MCA ischemic stroke (2012)
History of transient altered amnesia
Neurology consulted
BPH.
Continue Flomax
Mild hyponatremia
Monitor
CODE STATUS: DNR/DNI
DVT prophylaxis: INR is elevated
Diet: Regular diet
Family communication: discussed with family at bedside
Disposition: repeat EEG, ID consult.
Total time spent on today's encounter was 75 minutes which included time spent in counseling the patient/family regarding diagnosis and treatment plan as listed above, goals of care, and symptom management. Case was discussed with nursing staff,
specialists, and care coordinators/case management. All labs and imaging personally reviewed by me. Remainder the time spent in detailed review of previous records, lab data, imaging, and other medical provider documentation.
[2025-03-01] MEDS: MAXIPIME 1000 MG IV (11:26)
[2025-03-01] MEDS: NSS 1000 IV (11:28)
[2025-03-01] MEDS: VANCOCIN 540 MG IV (12:09)
--- NOTE | 2025-03-01 12:17 | EDCM ---
Reviewed chart and met with pt's family bedside in ED. Pt not able to participate in conversation.
Lives with his in 2 [facility], 2 [facility]. Independent in ADLs,personal care and ambulation at baseline.
Confirms RX coverage.
No hx VN or SNF
PCP: Scottie Kapadia
Pharmacy: [facility]
CM will continue to follow for all discharge planning needs.
[2025-03-01] MEDS: ATIVAN 1 MG IV ×4 (12:25→20:08)
[2025-03-01 12:54] LABS: Ammonia < 9 umol/L (9-30)
[2025-03-01 13:09] LABS: Troponin I 0.114 ng/ml
[2025-03-01] MEDS: STERILE WATER FOR INJECTION 10 ML IV (13:24)
--- NOTE | 2025-03-01 13:48 | PHA.VAN.IN ---
Assessment
- Assessment
Renal Function: Appears similar to baseline
Concomitant Antimicrobials: cefepime
Plan
- Plan
Initial / Loading Dose: 2000mg - 03/01 12:09
Maintenance Regimen: dosing by level
Monitoring: random 03/02 0600
MRSA Screen: Ordered per protocol
Pharmacokinetics Vancomycin I
- -
Patient Age: 84
Patient Sex: Male
Vancomycin Day #: 1
Indication: Skin And Soft Tissue
Requesting Provider: Dr. Mccullough
Pertinent Antimicrobial Allergies:
no pertinent antibiotic allergies
Height / Weight:
Height 5 ft 11 in
Actual Weight 78 kg
- Vital Signs / Lab Results
Temp Pulse Resp BP Pulse Ox
97.4 F 83 17 158/111 99
03/01/25 08:20 03/01/25 13:30 03/01/25 13:30 03/01/25 13:06 03/01/25 12:15
Lab Results - Hematology
03/01/25
08:54
WBC 11.1 H
Lab Results - Chemistry
03/01/25
08:54
BUN 43 H
Creatinine 1.5 H
Albumin 3.3 L
Lab Results - Urine
03/01/25
08:54
Urine Nitrite (Reflex) Negative
Leukocyte Esterase Rfl Negative
Urine WBC (Reflex) 0-2
Ur Squamous Epith Cells 0-2
--- NOTE | 2025-03-01 14:15 | CON.ID ---
Consultation
-
Date/Time Consultation Requested: 03/01/25 13:52
Date/Time Consultation Performed: 03/01/25 14:15
Requesting Provider: Dr Mccullough
Performing Provider: Dr Damico
Reason for Consultation: Acute metabolic encephalopathy
Chief Complaint / Past History
Chief Complaint
found down with dysarthria, AMS
History of Present Illness
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 He has a history of R MCA ischemic stroke 2012, memory changes with behavioral disturbance. His last known well time was 4:30 AM he was
ambulating and at his baselie, 6:00 he was asleep, 625 she found him on the floor next to their bed confused, speech garbled, patient stiff with tremulous movements, severely confused. EMS activated stroke alert, glucose was noraml on arrival,
moderately hypertensive but vitals otherwise normal. Family deny fevers, chills. Patient denies headache, dizziness, focal weakness, vision changes, numbness. Note his is chronically on methylprednisolone 4 mg PO qday for PMR. No recent travel.
He has been out hunting. Has dogs. Reportedly had a tick bite about 6 weeks ago right shoulder, no bullseye type rash, not eating/drinking any unpasturized foods, no recent vaccines.
About 12 days prior to arrival he was using a chain saw cutting down a branch and the branch fell and lacerated his carrington. He took keflex 500 mg po qid x3 days, then had progression of redness, swelling and tenderness of the leg, saw his PCP
02/27 and he has been on augmentin 875/125 mg PO BID.
Since arrival here he has been afebrile, bp stable, wbc 11.1, hgb 12.3, plt 101, L shift is noted, na 131, cr at his baseline of 1.5, ammonia <9, ck 176, UA no pyuria, a UDS is pending, note low IgG/IgM 2022, CT head: no acute abnormality, MRI brain
without contrast: no acute intracranial abnormality, CXR 1 view: no CP abnormality, blood cultures x2 are in progress
Past History
Additional Past Medical History:
CVA, hypertension, hyperlipidemia, hypothyroidism, CAD status post CABG, aortic stenosis status post TAVR, atrial fibrillation on Coumadin (status post recent synchronized cardioversion last month), CKD, Kidney stones, sleep apnea, aortic valve
replacement, diverticulosis
Additional Past Surgical History:
AVR
Allergy History:
pramipexole (From Mirapex) Allergy (Verified 02/02/25 10:10)
Confusion
meperidine HCl (From Demerol) Adverse Reaction (Mild, Verified 02/02/25 10:10)
Nausea / Vomiting
Medications Reviewed: Yes
Social History
Tobacco: Non-Smoker
Alcohol: None
Drug: None
Family History
Family History: Not Pertinent
Review of Systems
Vital Signs
Temp Pulse Resp BP Pulse Ox
97.4 F 83 17 158/111 99
03/01/25 08:20 03/01/25 13:30 03/01/25 13:30 03/01/25 13:06 03/01/25 12:15
Physical Exam
Physical Exam
Constitutional: No Acute Distress
Eyes: Other (subconjunctival hemorrhages)
Cardiovascular: Regular Rate and S1/S2; Negative Murmur or Rub
Pulmonary: Clear and Symmetric; Negative Wheezes, Rales or Rhonchi
Gastrointestinal: Soft, Non Tender, Non Distended and Normal Bowel Sounds
Skin: Warm, Dry and Other (diffuse bruising); Negative Rash or Jaundice
Wound: Other (laceration on the RLE with surrounding erythema)
Neurological: Negative Awake
Psychological: Agitated
Lab / Diagnostic Study Results
03/01/25 08:54
03/01/25 08:54
Abs Immat Gran (auto) 0.2 10^3/uL (0-0.05) H 03/01/25 08:54
Absolute Neuts (auto) 9.3 10^3/uL (1.4-6.5) H 03/01/25 08:54
Absolute Lymphs (auto) 0.7 10^3/uL (1.2-3.4) L 03/01/25 08:54
Absolute Monos (auto) 0.8 10^3/uL (0.1-0.6) H 03/01/25 08:54
Absolute Basos (auto) 0.1 10^3/uL (0-0.2) 03/01/25 08:54
Immature Gran % 1.9 % (0-0.5) H 03/01/25 08:54
Neutrophils % 83.7 % (42.2-75.2) H 03/01/25 08:54
Lymphocytes % 6.1 % (20.5-51.1) L 03/01/25 08:54
Monocytes % 7.5 % (1.7-9.3) 03/01/25 08:54
Eosinophils % 0.3 % (0-6) 03/01/25 08:54
Basophils % 0.5 % (0-2) 03/01/25 08:54
ESR 3 mm/hour (0-20) 03/01/25 08:54
PT 32.1 Sec (11.4-14.6) H 03/01/25 08:54
INR 3.18 03/01/25 08:54
Ur Squamous Epith Cells 0-2 /LPF (Few) 03/01/25 08:54
Microbiology Results
Micro:
03/01/25 12:15 Blood Culture - Pending
Blood/Venous
03/01/25 12:15 Blood Culture - Pending
Blood/Venous
Assessment / Plan
Encephalitis vs Toxic Metabolic Encephalopathy vs Seizure
Leukocytosis
Afib on warfarin
- would move forward with LP when feasible
- cell count, culture, protein, glucose, meningitis panel for HSV, lyme PCR, [place] IgM
- lyme progressive, ehrlichia/anaplasma PCR; note normal lfts, low plt, recent history of tick bite
- [place] IgM
- influenza screen
- has recently been on augmentin - all beta-lactams can cause AMS, stopped; was also recently on keflex however this was stopped 02/27
- UA without pyuria
- start ceftriaxone 2 gm IV q24, acycylovir 10 mg/kg iv q8 hours pending meningitis panel
Laceration RLE
Cellulitis
- blood cultures x2
- coverage with ceftriaxone for present
- follow clinically
Care Review
Plan reviewed with: Physician (Dr Boateng - LP request)
[2025-03-01 15:27] LABS: C-Reactive Protein 16.80 mg/L (0.0-10.00)
[2025-03-01 16:02] LABS: Ferritin 342.0 ng/ml (17.9-464.0)
[2025-03-01 16:33] LABS: Folate 9.0 ng/ml (2.76-20); Vitamin B12 554 pg/ml (239-931)
[2025-03-01] MEDS: ZOFRAN 4 MG IV (16:34)
[2025-03-01] MEDS: STERILE WATER FOR INJECTION 20 ML IV (16:35)
[2025-03-01] MEDS: THIAMINE INJECTION 100 MG IV (16:35)
[2025-03-01] MEDS: ROCEPHIN 2000 MG IV (16:36)
--- NOTE | 2025-03-01 16:56 | CON.CAR ---
Addendum entered and electronically signed by Fredy Del Real MD 03/01/25 17:28:
I saw and examined the patient.
The BRICK SORTER or PA's note was reviewed and I agree with the note.
Comment: Appears toxic
Neck: Supple, no JVD, HJR, carotids +2 B/L, no bruits bilaterally.
Heart: Non displaced PMI, RRR, no murmurs, No S3, S4, no rubs.
Lungs: Scattered rhonchi
Abdomen: Normal bowel sounds, soft, non-tender, non-distended.
Extremities: No clubbing, cyanosis or edema bilaterally.
Neuro: Lethargic
Bill has a history of TAVR are in November 2024 for aortic stenosis, remote right MCA CVA, dementia, paroxysmal A-fib and atrial flutter status post PVI in 2018 and cardioversion January 2025 on chronic warfarin, CAD status post CABG at time of
tissue AVR with DOLAN to LAD in January 2011, gout, hypertension, CKD 3 AA, hypothyroidism, PMR, thoracic aortic aneurysm.
He presents with change in mental status. Cardiology consulted for elevated troponin. He is unable give history at the present given poor mental status.
Suspect troponin elevation is nonischemic myocardial injury but will follow troponins. No catheterization in October 2024 was relatively unchanged. Will check echocardiogram. Mental status changes are concerning and suspect possibly sepsis. Of
note he did vomit while in the room and there could be possible ileus. Discussed with family in detail at bedside including and daughter Treasure.
Original Note:
Consultation
Consultation Request
Date/Time Consultation Requested: 03/01/2025
Date/Time Consultation Performed: 03/01/2025
Requesting Provider: Dr. Pascual Mccullough
Performing Provider: Dr. Del Real
Reason for Consultation: Elevated troponin
Medical History
-
History of Present Illness:
Patient came to the ER today with abrupt change in mental status and possible stroke alert prompting admission and cardiology is consulted for elevated troponin. Patient was found in bed at home this morning and appeared to be stiff and tremulous
and was confused with dysarthria. His called 911 and it was a prehospital stroke alert. Patient has a history of paroxysmal atrial fibrillation and is chronically on warfarin OAC managed by cardiology. Patient had recurrent A-fib prompting
successful CV on 02/02/2025. INR was 3.18 in the ER and initial CT of the head did not suggest any acute intracranial abnormality. Patient then went on to have MRI of the brain that showed stable chronic findings. Initial troponin was 0.016 and
then 0.114, but ECG without acute ischemic changes.
PMH:
Recent admission for TAVR for severe symptomatic AAS 12/15/2024
h/o remote right MCA territory CVA
Dementia
s/p Right TF TAVR 23 mm Pettit Resilia valve for severe symptomatic /AI 12/15/24
Previous tissue AVR 01/28/2011
Paroxysmal Afib/aflutter
s/p PVI 05/25/18
remote flutter ablation
s/p successful CV 02/02/2025
Chronic warfarin OAC managed by cardiology
CAD s/p CABG at time of tissue AVR with DOALN to LAD 01/28/11
Patent DOLAN to LAD by cardiac cath 11/22/2024
Gout
HTN
HLD
CKD 3 AA
PVCs
hypothyroidism
PMR
Thoracic aortic aneurysm
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
Past Medical History
Past Medical History: Other (in HPI)
Past Surgical History: Cardiac (CABG and tissue AVR 2010, PVI 2018, [facility] JOT 12/23/21), Orthopedic and Tonsilectomy
Social History
Tobacco: Non-Smoker
Alcohol: None
Drug: None
Personal:
Living: With Family
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
Family History
Family History: CAD
Allergies / Home Medications
Allergy/AdvReac Type Severity Reaction Status Date / Time
pramipexole (From Mirapex) Allergy Confusion Verified 02/02/25 10:10
meperidine HCl (From Demerol) AdvReac Mild Nausea / Verified 02/02/25 10:10
Vomiting
�Medication �Instructions �Recorded �Confirmed �Type
colchicine 0.6 mg tablet (Colcrys) 0.6 mg PO PRN PRN gout flare 06/20/21 03/01/25 History
diltiazem HCl 120 mg 120 mg PO BID Arrhythmia 06/20/21 03/01/25 History
capsule,extended release 12 hr
evolocumab 140 mg/mL subcutaneous 140 mg SC Q2W High Cholesterol 10/22/22 03/01/25 History
syringe (Repatha Syringe)
hydrocodone 5 mg-acetaminophen 325 1 tab PO DAILYPRN PRN back pain 10/22/22 03/01/25 History
mg tablet
levothyroxine 125 mcg tablet 125 mcg PO DAILY Thyroid 10/22/22 03/01/25 History
(Synthroid)
donepezil 5 mg tablet (Aricept) 5 mg PO HS Neurological Condition 10/06/24 03/01/25 History
methylprednisolone 4 mg tablet 4 mg PO DAILY Anti-Inflammatory 10/06/24 03/01/25 History
warfarin 1 mg tablet (Jantoven) 1.5 mg PO QPM Blood Clot 12/09/24 03/01/25 History
Prevention/Tx
acetaminophen 325 mg tablet 650 mg (2 x 325 mg) PO Q4HPRN PRN 12/16/24 03/01/25 Rx
BAXTER, mild pain, or fever >101F #0
tabs
amoxicillin 875 mg-potassium 1 tab PO BID LEG WOUND 03/01/25 03/01/25 History
clavulanate 125 mg tablet
docusate sodium 100 mg capsule 100 mg PO Q48H 03/01/25 03/01/25 History
peg 400-propylene glycol (PF) 0.4 1 drp BOTH EYES QIDPRN PRN DRY EYE 03/01/25 03/01/25 History
%-0.3 % eye drops in a dropperette
tamsulosin 0.4 mg capsule 0.4 mg PO DAILY 03/01/25 03/01/25 History
Review of Systems
-
History Source: Patient and Family
All other systems: Negative unless noted
Physical Exam
Vital Signs
Temp Pulse Resp BP Pulse Ox
98.1 F 83 18 153/99 98
03/01/25 15:30 03/01/25 15:31 03/01/25 15:31 03/01/25 15:32 03/01/25 15:32
Lab Results
03/01/25 08:54
03/01/25 08:54
Troponin I 0.114 ng/ml H* 03/01/25 12:15
Impression / Plan
-
PCP: Dr. Kapadia
Primary Cnc Milling Machinist: Dr. IDALIA Zarco
Impression:
Admitted with change in mental status and elevated troponin 03/01/2025
Recent admission for TAVR for severe symptomatic AAS 12/15/2024
h/o remote right MCA territory CVA
Dementia
s/p Right TF TAVR 23 mm Pettit Resilia valve for severe symptomatic /AI 12/15/24
Previous tissue AVR 01/28/2011
Paroxysmal Afib/aflutter
s/p PVI 05/25/18
remote flutter ablation
s/p successful CV 02/02/2025
Chronic warfarin OAC managed by cardiology
CAD s/p CABG at time of tissue AVR with DOLAN to LAD 01/28/11
Patent DOLAN to LAD by cardiac cath 11/22/2024
Gout
HTN
HLD
CKD 3 AA
PVCs
hypothyroidism
PMR
Thoracic aortic aneurysm
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
Echo 11/21/19: EF 55-60%, normal RV size and function, mild MR, normal functioning bovine AVR with peak/mean 20/11 mmHg
Echo 12/03/23: 60-65%, mild conc LVH, normal RV size and function, mild MR, well seated tissue AVR peak/mean 21/13 mmHg and mild aortic regurgitation, mild TR with PAP 20-25 mmHg
Echo 11/08/2024: EF 59 to 63%, moderate MR, dilated LA, bioprosthetic aortic valve with moderate to severe or severe regurgitation with peak/mean gradients 49/26 mmHg, FREDDY 1.4 cm�, mildly dilated RV and RA with PASP 58 mmHg
ECHO 12/15/24: Limited echo post TAVR, EF 50 to 55%, valve in valve TAVR with peak gradient 7 mmHg/mean gradient 4 mmHg, no AR detected
Plan:
-Patient came to the ER today with abrupt change in mental status and possible stroke alert prompting admission and cardiology is consulted for elevated troponin. Patient was found in bed at home this morning and appeared to be stiff and tremulous
and was confused with dysarthria. His called 911 and it was a prehospital stroke alert. Patient has a history of paroxysmal atrial fibrillation and is chronically on warfarin OAC managed by cardiology. Patient had recurrent A-fib prompting
successful CV on 02/02/2025. INR was 3.18 in the ER and initial CT of the head did not suggest any acute intracranial abnormality. Patient then went on to have MRI of the brain that showed stable chronic findings. Initial troponin was 0.016 and
then 0.114, but ECG without acute ischemic changes.
-ECG reviewed by me is SR without acute ST changes
-Initial troponin was 0.106 and then relatively flat at 0.114. Will check additional troponin this evening and again in the morning.
-Patient has a history of CABG at the time of his tissue AVR back in 2010, he had a DOLAN to the LAD at the time of pre-TAVR cardiac cath on 11/22/2024.
-Check echo, order placed by me
-INR goal is 2-3 and patient was taking warfarin 2 mg daily prior to admission. Patient uses fingerstick INR machine at home and results are sent to cardiology for management.
-Patient has known paroxysmal atrial fibrillation and had successful CV on 02/02/2025. He appears to be in SR on ECG now.
[2025-03-01] MEDS: ZOVIRAX INJECTION 265.6 MG IV (17:09)
--- NOTE | 2025-03-01 18:39 | PTCARENOTE ---
Pt received from ED via stretcher. Family at bedside. EEG leads in place, machine off upon arrival. Nursing leak gang supervisor Darshana notified.
[2025-03-01 18:45] LABS: Troponin I 0.131 ng/ml
[2025-03-01] MEDS: NSS (PRESERVATIVE FREE) 0.5 ML IV (20:07)
[2025-03-01] MEDS: CARDIZEM SR PO (21:33)
[2025-03-02] VITALS (38 sets, daily range): BP systolic 81–192; BP diastolic 49–161; BMI 22.6
[2025-03-02] MEDS: ATIVAN 1 MG IV ×3 (00:25→11:05)
[2025-03-02] MEDS: NSS (PRESERVATIVE FREE) 0.5 ML IV ×2 (00:25→04:26)
[2025-03-02] MEDS: NSS 1000 IV ×2 (00:25→08:42)
[2025-03-02] MEDS: REFRESH EYE DROPS (PF) 1 DROPS BOTH EYES (00:26)
--- NOTE | 2025-03-02 01:53 | PTCARENOTE ---
Addendum entered by Eliz Morales RN 03/02/25 21:37:
scallop dredger neurology asked if NIH or Neuro checks should be done. Dr Castellon periodontal assistant, order placed Q4 neuro checks follow IMU protocol, No NIH ordered.
Original Note:
Assumed care of Pt from Edenilson RN. Pt currently on EEG machine that was appearing not to be working. Contacted day RN Hany for information about logging on system to verify. Computer on and appearing to now be recording. Pt continues to have jerking
movements in all extremities but not all at same time, Pt face grimacing during movements. Pt PRN medication used per orders. Pt unable to take PO medication at this time. Neurology contacted to verify orders for NIH or neuro checks, Order placed
for Q4 neuro checks and to follow our protocol. Night AUDIT DIRECTOR made aware of Pt being hypertensive,hydralazine to be ordered see mar. Pt informing this RN that patient does have anxiety stating ' it gets bad now with the dementia' If patient is put
out of his normal or planned routine it will send him into a episode of 'getting upset and angry'. Pt daughter who is a '[employer] radiologist' is at bed side earlier in evening requesting to know who the neurologist periodontal assistant is and who the night AUDIT DIRECTOR is.
Contact was made with both by Daughter, no new orders at this time. Pt appearing to be resting comfortably at this time, respirations even unlabored. at bed side.
[2025-03-02] MEDS: APRESOLINE 5 MG IV (02:22)
[2025-03-02] MEDS: ZOVIRAX INJECTION 265.6 MG IV (04:57)
[2025-03-02 05:06] LABS: Hematocrit 37.9 % (39.0-52.0); Hemoglobin 13.3 g/dL (13.0-18.0); Mean Corp Hgb Conc. 35.1 g/dL (33.0-37.0); Mean Corpuscular Volume 93.6 fL (80.0-94.0); Platelet Count 122 10^3/uL (130-400); Red Cell Dist. Width 13.3 % (11.5-14.5)
[2025-03-02 05:11] LABS: INR 2.73; PT 28.5 Sec (11.4-14.6)
[2025-03-02 05:19] LABS: Blood Urea Nitrogen 31 mg/dl (9-20); Calcium 9.4 mg/dl (8.4-10.2); Carbon Dioxide 28 mmol/L (22-30); Chloride 101 mmol/L (98-107); Estimated Creatinine Clearance 36 ml/min; Glucose 91 mg/dl (70-99); HDL Cholesterol 84 mg/dl; LDL Cholesterol, Calculated 52 mg/dl; Magnesium 1.7 mg/dl (1.6-2.3); Potassium 4.3 mmol/L (3.5-5.1); Sodium 134 mmol/L (135-145); Very Low Density Lipoprotein 20 mg/dl (0-30); eGFR 42.22
[2025-03-02 05:39] LABS: Troponin I 0.148 ng/ml
--- NOTE | 2025-03-02 05:43 | PTCARENOTE ---
Pt becoming slightly more alert this AM. Pt fighting and pulling away with labs and care. Pt opening eyes to voice at times. Pt making noises but not forming words. When asked to squeeze hand Pt moving fingers with squeezing motion repeatedly then
sudden stop, hard assess if truly a response. Assessment care and vitals as charted.
[2025-03-02] MEDS: SYNTHROID PO (05:48)
[2025-03-02] MEDS: CARDIZEM SR PO ×2 (08:34→21:04)
[2025-03-02] MEDS: MEDROL PO (08:35)
[2025-03-02] MEDS: THIAMINE INJECTION 100 MG IV (08:42)
--- NOTE | 2025-03-02 09:01 | W.PN.NEURO.1 ---
Today's Communication / Plan
-
check LP, appreciate interventional radiology assistance
check for metabolic causes for symptoms
avoid benzodiazepines due to risk of additional sedation
may D/C cEEG, no evidence of seizures
check repeated CT head
Neuro Assessment/Plan
Assessment
Abrupt onset of change in mental status as well as being found down with dysarthria. Differential diagnosis includes no longer includes acute ischemic stroke, focal onset generalized seizures. The most likely etiology is toxic metabolic in nature.
Possibility of meningitis based on the patient having long-term steroid use is not eliminated. Additionally, the possibility of postconcussive syndrome is not eliminated.
Plan
check LP, appreciate interventional radiology assistance
check for metabolic causes for symptoms
avoid benzodiazepines due to risk of additional sedation
july D/C cEEG, no evidence of seizures
check repeated CT head
Will follow
Subjective/Objective
Subjective Data
Date of Service: March 02, 2025
Patient unable to provide his own medical history
Objective Data
Vital Signs
Temp Pulse Resp BP Pulse Ox
36.8 C 92 19 136/100 95
03/02/25 07:22 03/02/25 06:00 03/02/25 06:00 03/02/25 06:00 03/02/25 06:00
Lab Results
03/02/25 04:42
03/02/25 04:42
PT 28.5 Sec (11.4-14.6) H 03/02/25 04:42
INR 2.73 03/02/25 04:42
APTT 38.9 Sec (23.4-35.0) H 03/01/25 08:54
Sodium 134 mmol/L (135-145) L 03/02/25 04:42
Potassium 4.3 mmol/L (3.5-5.1) 03/02/25 04:42
BUN 31 mg/dl (9-20) H 03/02/25 04:42
Glucose 91 mg/dl (70-99) 03/02/25 04:42
Calcium 9.4 mg/dl (8.4-10.2) 03/02/25 04:42
Slv-P-Wqwjrmovbre Pept 6420 pg/ml 03/02/25 04:42
LDL Cholesterol, Calc 52 mg/dl 03/02/25 04:42
Vitamin B12 Cancelled 03/01/25 12:17
Ur Buprenorphine Negative (Negative) 03/01/25 08:54
Patient Allergies
pramipexole (From Mirapex) Allergy (Verified 02/02/25 10:10)
Confusion
meperidine HCl (From Demerol) Adverse Reaction (Mild, Verified 02/02/25 10:10)
Nausea / Vomiting
Review of Systems
-
Unable to obtain full review of systems at this time due to: Lethargy
History Source: Patient
All other systems: Reviewed and negative
Physical Exam
-
General: No Apparent Distress and Appears Stated Age
Eyes: Round OU, Stow Conjunctivae and No Ptosis
HEENT: Anicteric and Moist Mucous Membranes
Neck: Full Range of Motion
Respiratory: No Dyspnea
Cardiac: No JVD
GI: Non-distended
Skin: Other (Numerous ecchymoses)
Extremities: No Clubbing and No Edema
Psych: Unable to Assess
Extended Neurological Exam
Mood & Affect: Unable to Assess
Attention Span & Concentration: Lethargic, Unable to Perform 2 Step Request and Other (Unable to perform single step requests); Negative Awake, Alert or Interactive
Memory: Unable to Assess
Tremor: Hand Tremor Absent and Head Tremor Absent
Involuntary Movement: Other (Diffuse tremulous movements irregularly in bilateral upper extremities)
Speech: Mute
Cranial Nerve II: Left Eye: Pupillary Reactivity Unremarkable, Pupillary Size Unremarkable and Unable to Assess Visual Fox
Cranial Nerve II: Right Eye: Pupillary Reactivity Unremarkable, Pupillary Size Unremarkable and Unable to Assess Visual Fox
Cranial Nerves III, IV, : Extraocular Movement: Absent Doll's Eyes
Cranial Nerve V: Facial Sensation: Unable to Assess
Cranial Nerve VII: Facial Symmetry: Normal Facial Symmetry
Cranial Nerve VIII: Hearing: Unable to Assess
Cranial Nerves IX, X: Palate Movement: Unable to Assess
Cranial Nerve XI: Shoulder Shrug: Unremarkable
Muscle Strength, Overall: Spontaneously Moves (All extremities)
Muscle Bulk & Tone: Bulk Unremarkable and Tone Unremarkable
Pronator Drift: Unable to Assess
Vibration Sensation: Unable to Assess
Coordination: Other (Reaches outward without difficulty)
Gait & Station: Unable to Assess
Data Reviewed
-
MRI Head: Report Reviewed
EEG: Report Reviewed
Labs: Report Reviewed
Reviewed with: Physician, Nurse and Family
Old Records: Summarized
[2025-03-02] MEDS: DUONEB 3 ML INH (09:03)
[2025-03-02 09:13] LABS: Glycohemoglobin (HgbA1c) 6.1 % (4.0-5.9)
--- NOTE | 2025-03-02 09:16 | W.PN.CARDCBS ---
Today's Communication / Plan
-
Follow INR, reinstitute anticoagulation as possible
Observe volume status closely, may need diuretics
Impression / Plan
-
PCP: Dr. Kapadia
Primary [facility] Operator: Dr. IDALIA Zarco
Impression:
Admitted with change in mental status and elevated troponin 03/01/2025
Recent admission for TAVR for severe symptomatic AAS 12/15/2024
h/o remote right MCA territory CVA
Dementia
s/p Right TF TAVR 23 mm Pettit Resilia valve for severe symptomatic /AI 12/15/24
Previous tissue AVR 01/28/2011
Paroxysmal Afib/aflutter
s/p PVI 05/25/18
remote flutter ablation
s/p successful CV 02/02/2025
Chronic warfarin OAC managed by cardiology
CAD s/p CABG at time of tissue AVR with DOLAN to LAD 01/28/11
Patent DOLAN to LAD by cardiac cath 11/22/2024
Gout
HTN
HLD
CKD 3 AA
PVCs
hypothyroidism
PMR
Thoracic aortic aneurysm
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
Echo 11/21/19: EF 55-60%, normal RV size and function, mild MR, normal functioning bovine AVR with peak/mean 20/11 mmHg
Echo 12/03/23: 60-65%, mild conc LVH, normal RV size and function, mild MR, well seated tissue AVR peak/mean 21/13 mmHg and mild aortic regurgitation, mild TR with PAP 20-25 mmHg
Echo 11/08/2024: EF 59 to 63%, moderate MR, dilated LA, bioprosthetic aortic valve with moderate to severe or severe regurgitation with peak/mean gradients 49/26 mmHg, FREDDY 1.4 cm�, mildly dilated RV and RA with PASP 58 mmHg
ECHO 12/15/24: Limited echo post TAVR, EF 50 to 55%, valve in valve TAVR with peak gradient 7 mmHg/mean gradient 4 mmHg, no AR detected
Plan:
From a cardiac standpoint, Bill is unchanged. He remains in sinus rhythm.
Unfortunately, he currently is not able to take warfarin and may require reversal of his INR to permit lumbar puncture.
He has detectable troponin is likely a type II event, non-ACS related and does not require further evaluation at this time he had a recent cardiac catheterization prior to his valve in valve TAVR.
It does not seem that his current neurologic status can be explained by a cardioembolic event.
proBNP is elevated, there is no overt evidence of heart failure at this time, will continue to monitor and if needed add furosemide.
When INR is subtherapeutic and if patient stable, would use heparin. He is markedly ecchymotic at this time.
We will continue to follow.
Progress Note - [facility] Operator
Subjective
Date of Service: March 02, 2025:
Complex 84-year-old man, most recently underwent valve in valve TAVR in November, with postoperative atrial fibrillation, started on amiodarone but discontinued after 1 dose, admitted yesterday with delirium, initial concerns regarding
cardioembolic stroke probably unfounded.
PMH: SAVR with single-vessel bypass remotely, remote atrial flutter ablation, PVI April 2028, cardioversion for atrial fibrillation February 02, 2025, remote cardio embolic stroke in right MCA, dementia, gout, hypertension, hyperlipidemia, CKD,
PVCs, right bundle branch block with first-degree AV block, monitor in place
Meds: Thiamine, ceftriaxone, acyclovir, diltiazem CD120 twice daily, Aricept, levothyroxine, methylprednisolone, tamsulosin
136/100, pulse 88, resp rate 18, still delirious, tremulous tends to focus on examiner but not articulate. Breath sounds diminished regular rate and rhythm, soft systolic murmur, diffuse ecchymoses.
Chest x-ray NAD head CT: NAD, brain MRI NAD, old right temporoparietal stroke
ECG sinus rhythm, PACs, right bundle branch block, possible IMI, long QT
White count 12.1, platelets 122 hemoglobin 13.3, BUN and creatinine 31 and 1.6, creatinine was 1.5, ammonia very low, proBNP 6420, LDL 52, troponin 0.148
Objective
Labs:
03/02/25 04:42
03/02/25 04:42
Labs
Hgb 13.3 g/dL (13.0-18.0) 03/02/25 04:42
Hct 37.9 % (39.0-52.0) L 03/02/25 04:42
Plt Count 122 10^3/uL (130-400) L D 03/02/25 04:42
PT 28.5 Sec (11.4-14.6) H 03/02/25 04:42
INR 2.73 03/02/25 04:42
APTT 38.9 Sec (23.4-35.0) H 03/01/25 08:54
Sodium 134 mmol/L (135-145) L 03/02/25 04:42
Potassium 4.3 mmol/L (3.5-5.1) 03/02/25 04:42
BUN 31 mg/dl (9-20) H 03/02/25 04:42
Creatinine 1.6 mg/dL (0.7-1.3) H 03/02/25 04:42
Glucose 91 mg/dl (70-99) 03/02/25 04:42
Troponins
03/01/25 03/01/25 03/01/25
09:06 12:15 18:05
Troponin I 0.106 H* 0.114 H* 0.131 H*
03/02/25
04:42
Troponin I 0.148 H*
Vital Signs and I&O:
Vital Signs
Temp Pulse Resp BP Pulse Ox
36.8 C 88 18 136/100 97
03/02/25 07:22 03/02/25 09:14 03/02/25 09:14 03/02/25 06:00 03/02/25 09:14
Vital Signs
Temp Pulse Resp BP Pulse Ox
36.8 C 88 18 136/100 97
03/02/25 07:22 03/02/25 09:14 03/02/25 09:14 03/02/25 06:00 03/02/25 09:14
Intake & Output
02/28/25 03/01/25 03/02/25 03/03/25
07:59 07:59 07:59 07:59
Intake Total 1530 / 1530
Output Total 2675 / 2675
Balance -1145 / -1145
Physical Exam
Physical Exam
See above
--- NOTE | 2025-03-02 10:38 | PTCARENOTE ---
At start of shift patient was nonverbal, having full body twitching and jerking movements, eyes closed. Patient was hooked up to the EEG machine. Patient required oral suctioning, pulse ox 97% on room air. Crackles auscultated , IVF rate decreased.
RN, hospitalist and neurologist met with and daughter at bedside to update and discuss plan of care. Patient is now at CT scan and IR for Lumbar puncture.
--- NOTE | 2025-03-02 10:47 | PTCARENOTE ---
Patient is requiring oral suctioning, unable to follow commands, aspiration risk. Discussed with Dr. Garner and patient is NPO.
--- NOTE | 2025-03-02 12:08 | W.PN.UPDATE ---
Update Note
Progress Note Update
- LP completed.
- About 8 mL of clear CSF fluid obtained.
- Received 1 mg Ativan pre
- Ok to restart Coumadin per IR this evening.
--- NOTE | 2025-03-02 12:39 | W.PN.ID1 ---
Date of Service
Date of Service: March 02, 2025
Today's Communication
LP not consistent with encephalitis, more likely encephalopathy
stop ceftriaxone/acyclovir
start doxycycline/keflex
Assessment / Plan
Toxic Metabolic Encephalopathy vs Seizure; ruled out encephalitis
Leukocytosis
Afib on warfarin
- LP is not consistent with encephalitis, this is more likely encephalopathy
- lyme progressive (negative), ehrlichia/anaplasma PCR pending, babesia (negative); note normal lfts, low plt, recent history of tick bite
- [place] IgM
- influenza screen
- has recently been on augmentin - all beta-lactams can cause AMS, stopped
- UA without pyuria
- stop ceftriaxone 2 gm IV q24,
- stop acycylovir 10 mg/kg iv q8 hours pending meningitis panel
- start doxycycline pending anaplasma/ehrlichia PCR
Laceration RLE
Cellulitis - resolving
- blood cultures x2
- start keflex for a 7 day total course 02/27-03/05
- follow clinically
Chief Complaint
-: Other (encephalopathy/encephalitis)
Subjective / Review of Systems
afebrile
bp stable
unable to follow commands
requiring suctioning, aspiration risk
start of shift having full body twitching and jerking movements
fighting and pulling away with labs and care
CSF with 8 mL of clear fluid
no evidence of seizures on EEG
Vital Signs / Physical Exam
Vital Signs
Vital Signs
Temp Pulse Resp BP Pulse Ox
97.4 F 81 18 161/85 97
03/02/25 10:15 03/02/25 11:06 03/02/25 11:06 03/02/25 11:06 03/02/25 11:06
Physical Exam
Constitutional: No Acute Distress
Cardiovascular: Regular Rate and S1/S2; Negative Murmur or Rub
Pulmonary: Clear and Symmetric; Negative Wheezes or Rales
Gastrointestinal: Soft, Non Tender, Non Distended and Normal Bowel Sounds
Skin: Warm and Dry; Negative Rash or Jaundice
Wound: Other (laceration on the distal right leg, no further surrounding erythema)
Neurological: Negative Awake or Alert
Objective Data
Lab Data
Lab Results
03/02/25 04:42
03/02/25 04:42
ESR 3 mm/hour (0-20) 03/01/25 08:54
PT 28.5 Sec (11.4-14.6) H 03/02/25 04:42
INR 2.73 03/02/25 04:42
APTT 38.9 Sec (23.4-35.0) H 03/01/25 08:54
Estimated Creat Clear 36 ml/min 03/02/25 04:42
Total Bilirubin 0.8 mg/dl (0.2-1.3) 03/01/25 08:54
AST 28 U/L (17-59) 03/01/25 08:54
ALT 30 U/L (0-50) 03/01/25 08:54
Alkaline Phosphatase 42 U/L (38-126) 03/01/25 08:54
C-Reactive Protein 16.80 mg/L (0.0-10.00) H 03/01/25 08:54
Most recent labs reviewed.
UDS positive for tricyclics
Micro Results:
03/01/25 12:15 Blood Culture - Preliminary
Blood/Venous No Growth in 24 hours- Final report to follow
03/01/25 12:15 Blood Culture - Preliminary
Blood/Venous No Growth in 24 hours- Final report to follow
03/01/25 18:05 Blood Parasites Smear - Final
Blood/Venous
03/01/25 18:05 MRSA Screen - Pending
Nose
Chest X-Ray: Image Reviewed and Report Reviewed
CT Scan: Report Reviewed (repeat CT head no change)
Other: Report Reviewed (AXR)
--- NOTE | 2025-03-02 12:54 | PTCARENOTE ---
Patient is back in room s/p Ct scan and LP. Bandaid intact on back with no bleeding or drainage. Patient bathed, suctioned, oral care provided. Family at bedside.
[2025-03-02 13:32] LABS: Lyme Antibody Screen, EIA Negative (Negative)
[2025-03-02 14:07] LABS: Troponin I 0.162 ng/ml
[2025-03-02 14:08] LABS: CSF Color Colorless
[2025-03-02 14:09] LABS: CSF Tube # Clarity Clear; White Blood Cell Count/CSF 2 mm^3 (0-5)
[2025-03-02 14:18] LABS: CSF Color Colorless; Red Cell Count/CSF 6 mm^3; White Cell Count/CSF 2 mm^3 (0-5)
[2025-03-02 14:20] LABS: Red Cell Count/CSF 8 mm^3
--- NOTE | 2025-03-02 15:08 | W.PN.HOSP.TC ---
Today's Communication/Plan
-
Follow CSF results.
Continue current antibiotic.
check COVID.
Assessment / Plan
Assessment / Plan
Impression:
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
TAVR, CKD, hypertension, hyperlipidemia, hypothyroidism, JORDIN, gout, polymyalgia rheumatica, and memory changes with behavioral disturbance. who came to the ER as a stroke alert, He was reportedly at baseline at 0430 when his saw him ambulating.
At 0600, he was asleep in bed. Around 0625, his found him on the floor next to the bed, confused, speech reduced to garbled sounds, stiff, and tremulous. EMS was activated and a stroke alert was initiated en route.
On arrival to ED:
CT Head and CTA Head/Neck: No acute abnormalities, ASPECT score 10.
CT Perfusion: Core 12 mL, penumbra 10 mL, mismatch -2 mL in prior R MCA stroke region (possible artifact).
NIHSS: 6.
MRI brain shows: No acute intracranial abnormality.Not a candidate for TNK/IAT due to warfarin use (INR 3.18) and no LVO.
Recently completed a short course of antibiotics for right carrington cellulitis after trauma with a tree branch ~10 days ago.
Collateral history from and daughters: Baseline speech is clear, ambulatory, independent with ADLs. No seizure history. Mild short-term memory lapses at baseline. Recent Keflex course for leg redness. No recent medication changes except
discussion about tapering methylprednisolone (currently 4 mg daily).
Admitted under hospitalist service, seen by infectious disease and neurology.
Started empirically on antibiotic with ceftriaxone and acyclovir
Status post LP
Assessment/plan:
Acute toxic metabolic encephalopathy
Abrupt onset of altered mental status, dysarthria, and tremulous movements. Differential includes:
Acute ischemic stroke (ruled out by MRI)
Seizure or postictal state (ruled out by EEG) EEG: No epileptiform activity.
Toxic/metabolic encephalopathy (sepsis cellulitis?, tickborne disease, West Nile virus,.. etc)
Hypotension or syncope
CT Head and CTA Head/Neck: No acute abnormalities, ASPECT score 10.
CT Perfusion: Core 12 mL, penumbra 10 mL, mismatch -2 mL in prior R MCA stroke region (possible artifact).
NIHSS: 6.
MRI brain shows: No acute intracranial abnormality.By neurology in the ER
Infectious disease and neurology consulted
Status post LP, CSF studies pending
Blood culture pending. On Rocephin and acyclovir
Urine drug screen positive for tricyclic, possible Benadryl at home
Paroxysmal atrial fibrillation (on Coumadin, recent cardioversion)
Currently in sinus rhythm.
Hold Coumadin.
Continue diltiazem
Cardiology consulted
Right lower extremity cellulitis.
Wound consult.
Continue antibiotic
Supratherapeutic INR.
Daily INR.
Hold Coumadin for now
Resume once INR less than 2
Troponin elevation
History of coronary artery disease status post
Type II TX.
Continue to monitor
Cardiology consulted
History aortic stenosis
status post TAVR
Chronic kidney disease
creatinine stable
Polymyalgia rheumatica
Continue steroid
History of R MCA ischemic stroke (2012)
History of transient altered amnesia
Neurology consulted
BPH.
Continue Flomax
Mild hyponatremia
Improved
CODE STATUS: DNR/DNI
DVT prophylaxis: INR is elevated
Diet: NPO
Family communication: discussed with family at bedside
Disposition: Follow CSF results.
Continue current antibiotic.
check COVID.
Total time spent on today's encounter was 65 minutes which included time spent in counseling the patient/family regarding diagnosis and treatment plan as listed above, goals of care, and symptom management. Case was discussed with nursing staff,
specialists, and care coordinators/case management. All labs and imaging personally reviewed by me. Remainder the time spent in detailed review of previous records, lab data, imaging, and other medical provider documentation.
Anticipated Discharge: > 48 hours
Subjective/Interval History
-
Date of Service: March 02, 2025
Patient seen and examined at bedside, family at bedside, patient still lethargic, cannot obtain review of system.
Objective Data
-
Labs:
Laboratory Results
03/02/25
04:42
WBC 12.1 H
Hgb 13.3
Hct 37.9 L
Plt Count 122 L D
PT 28.5 H
INR 2.73
Sodium 134 L
Potassium 4.3
Chloride 101
Carbon Dioxide 28
BUN 31 H
Creatinine 1.6 H
Glucose 91
Calcium 9.4
Vital Signs:
Vital Signs
Temp Pulse Resp BP Pulse Ox
98.5 F 84 16 112/79 96
03/02/25 13:48 03/02/25 13:26 03/02/25 13:26 03/02/25 13:26 03/02/25 13:26
I&O
03/01/25 03/02/25 03/03/25
06:59 06:59 06:59
Intake Total 1530 / 1530
Output Total 2675 / 2675
Balance -1145 / -1145
Physical Exam
-
General: Respiratory Distress and Appears in Distress
HEENT: Normocephalic, Atraumatic, Moist Mucous Membranes, No Ptosis, PERRLA and Nose Appears Normal
Respiratory: Rales, Rhonchi and Crackles
Cardiac: Regular Rhythm and S1/S2
Breast: Deferred by me
GI: Soft, Nontender, Nondistended and Normal Bowel Sounds
Genito-urinary: No Costovertebral Tender
Musculoskeletal: No Clubbing and Other (Bilateral extremity redness, right leg with erythema and area of dark necrosis)
Skin: Warm, Rash and Lesions
Neuro: Tremors and Other (Obtunded)
Psych: Other (Lethargic)
Data Reviewed
-
Diagnostic Radiology: Image personally visualized and interpreted and Report Reviewed by me
CT Scan: Image personally visualized and interpreted and Report Reviewed by me
Ultrasound: Image personally visualized and interpreted and Report Reviewed by me
MRI: Image personally visualized and interpreted and Report Reviewed by me
Medical Tests (Nuc Med, Echo etc): Image personally visualized and interpreted and Report Reviewed by me
Labs: Labs Reviewed by me
Old Records: Reviewed
[2025-03-02 15:47] LABS: COVID-19 Antigen Negative (Negative)
--- NOTE | 2025-03-02 16:59 | PTCARENOTE ---
Patient is agitated at this time, manual blood pressure is 170/100. Discussed with Dr. Garner. Order for Hydralazine obtained.
[2025-03-02] MEDS: STERILE WATER FOR INJECTION IV (17:04)
[2025-03-02] MEDS: APRESOLINE 10 MG IV (17:05)
[2025-03-02] MEDS: VIBRAMYCIN 260 MG IV (20:39)
[2025-03-02] MEDS: ANCEF 5 IV (21:00)
[2025-03-02 21:32] LABS: Troponin I 0.137 ng/ml
[2025-03-03] VITALS (17 sets, daily range): BP systolic 109–191; BP diastolic 48–148; PULSE 78; O2SAT 98; BMI 22.9
--- NOTE | 2025-03-03 00:19 | PTCARENOTE ---
Neuro checks continued. At midnight, a full neuro assessment and repositioning were completed. Pt was arousable to verbal stimuli, and demonstrated purposeful movement. Pt tolerated repositioning and verbally expressed appreciation, stating 'thank
you.' Pt's daughter remains at the bedside and was updated on the ongoing plan of care.
--- NOTE | 2025-03-03 00:50 | PTCARENOTE ---
At 1247, pt demonstrated continued improvements in alertness and responsiveness. Pt's daughter remained at the bedside and was engaged in the interaction. This RN completed a full neurological assessment at this time. Pt was awake, and oriented to
person and time, and able to maintain eye contact throughout the assessment. Pt followed verbal commands appropriately. Bilateral upper and lower extremity weakness was noted, consistent with previous assessment; however, patient showed improved
effort and coordination compared to earlier shift. Speech was noticeably more coherent with times of confusion,and pt was able to participate in a full meaningful conversation, expressing needs and responding to questions appropriately. Plan of care
ongoing.
[2025-03-03] MEDS: APRESOLINE 10 MG IV (02:41)
[2025-03-03] MEDS: NSS 1000 IV ×2 (02:42→18:17)
[2025-03-03] MEDS: ANCEF 5 IV (03:24)
--- NOTE | 2025-03-03 05:26 | PTCARENOTE ---
Pt verbally making request for water. Mouth care done. Sip of water given. Pt appearing to tolerate well, No sign of aspiration. Ice chips given, Pt tolerating well. PLATEN PRESS FEEDER made aware of positive changed NPO order changed for sips of clears and chips.
Education given to Pt and daughter who is at bed side. Pt also making RN aware of discomfort in left shoulder with range of motion. Pt does not want any medication at this time.
[2025-03-03 05:37] LABS: Hematocrit 39.3 % (39.0-52.0); Hemoglobin 13.6 g/dL (13.0-18.0); Mean Corp Hgb Conc. 34.6 g/dL (33.0-37.0); Mean Corpuscular Volume 94.5 fL (80.0-94.0); Platelet Count 128 10^3/uL (130-400); Red Cell Dist. Width 13.4 % (11.5-14.5)
[2025-03-03 05:49] LABS: INR 2.02; PT 22.5 Sec (11.4-14.6)
[2025-03-03] MEDS: SYNTHROID PO (06:34)
--- NOTE | 2025-03-03 07:14 | W.PN.HOSP.TC ---
Addendum entered and electronically signed by Santa Wilson MD 03/03/25 17:39:
I saw and evaluated the patient independently. I reviewed and discussed the resident�s note and agree with findings and plan as documented in the resident�s note.
GENERAL: well developed, well nourished, male in no apparent distress--still seems a bit confused
HEENT:NC/AT
HEART: irreg irreg
LUNGS : clear to auscultation bilaterally
ABDOM: soft, nontender, nondistended, + bowel sounds
EXT: no cyanosis, clubbing, or edema--left shoulder pain
NEUROLOGIC: moves all extremities
: garcia
PSYCH: still confused
Acute toxic metabolic encephalopathy with Abrupt onset of altered mental status, dysarthria, and tremulous movements--CT/CTA brain/head neg, MRI brain neg, EEG neg, LP neg for encephalitis--working diagnosis toxic metabolic encephalopathy--pt 'woke'
up today and started talking--still have no definitive diagnosis and told family may not ever get one--apprec neuro/ID/cards--currently on doxy/keflex (ceftriaxone/acyclovir stopped), blood cultures neg--urine tox positive for tricyclics (? false
positive with benadryl)--passed speech--therapy recommending ACUTE rehab--PM&R consulted--given chronic steroids at home, will check AM cortisol--cont thiamine
Paroxysmal atrial fibrillation (on Coumadin, recent cardioversion)--cont diltiazem and resume coumadin--follow INR--apprec cards
Right lower extremity cellulitis- Wound care following- Continue antibiotics as above
Left shoulder pain--shoulder x-ray with arthritis--pain control, therapy
Coagulopathy due to Supratherapeutic INR from warfarin--follow INR--resume coumadin--goal INR 2-3
Troponin elevation, likely non-ischemic myocardial injury- History of coronary artery disease status post CABG, Type II OR-- Troponins have peaked- Continue to monitor- Cardiology has been consulted
History aortic stenosis - status post TAVR
Chronic kidney disease stage 3- creatinine stable
Polymyalgia rheumatica- Continue steroid--check AM cortisol
History of R MCA ischemic stroke (2012)- History of transient altered amnesia- Neurology consulted
BPH-- Continue Flomax--garcia discontinued
Mild hyponatremia- monitor
CODE STATUS-- DNR/DNI
DVT proph-- warfarin
Original Note:
Today's Communication/Plan
-
- Per neuro, appears back to probable baseline this morning, most likely etiology is toxic/metabolic encephalopathy
- Per speech, regular diet
- Per PT/OT, left shoulder pain -> L shoulder x-ray ordered
- AM cortisol
- discontinue garcia
- resume warfarin
- consulty physiatry, likely dispo is acute rehab
- transfer to telemetry
Assessment / Plan
Assessment / Plan
Impression:
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
TAVR, CKD, hypertension, hyperlipidemia, hypothyroidism, JORDIN, gout, polymyalgia rheumatica, and memory changes with behavioral disturbance. who came to the ER as a stroke alert, He was reportedly at baseline at 0430 when his saw him ambulating.
At 0600, he was asleep in bed. Around 0625, his found him on the floor next to the bed, confused, speech reduced to garbled sounds, stiff, and tremulous. EMS was activated and a stroke alert was initiated en route.
On arrival to ED:
CT Head and CTA Head/Neck: No acute abnormalities, ASPECT score 10.
CT Perfusion: Core 12 mL, penumbra 10 mL, mismatch -2 mL in prior R MCA stroke region (possible artifact).
NIHSS: 6.
MRI brain shows: No acute intracranial abnormality.Not a candidate for TNK/IAT due to warfarin use (INR 3.18) and no LVO.
Recently completed a short course of antibiotics for right carrington cellulitis after trauma with a tree branch ~10 days ago.
Collateral history from and daughters: Baseline speech is clear, ambulatory, independent with ADLs. No seizure history. Mild short-term memory lapses at baseline. Recent Keflex course for leg redness. No recent medication changes except
discussion about tapering methylprednisolone (currently 4 mg daily).
Interval events
Assessment/plan:
Acute toxic metabolic encephalopathy
Abrupt onset of altered mental status, dysarthria, and tremulous movements. Differential includes:
Acute ischemic stroke (ruled out by MRI)
Seizure or postictal state (ruled out by EEG) EEG: No epileptiform activity.
Toxic/metabolic encephalopathy (sepsis cellulitis?, tickborne disease, West Nile virus,.. etc)
Hypotension or syncope
CT Head and CTA Head/Neck: No acute abnormalities, ASPECT score 10.
CT Perfusion: Core 12 mL, penumbra 10 mL, mismatch -2 mL in prior R MCA stroke region (possible artifact).
NIHSS: 6.
MRI brain shows: No acute intracranial abnormality.By neurology in the ER
- Infectious disease and neurology consulted
- Per ID, LP not consistent with encephalitis; elevated protein, other studies pending
- Per ID, D/c ceftriaxone/acyclovir; started on doxycycline/keflex
- Blood culture negative growth for 24h.
- Urine drug screen positive for tricyclic, possible Benadryl at home
- Per neuro, he appears back to probable baseline this morning, most likely etiology is toxic/metabolic encephalopathy
- Per speech, cleared for regular solids and thin liquids with supervision and strict aspiration precautions)
- Per PT/OT, left shoulder pain and score of 8 on 4AT delirium scale (>= 4 is likely delirium)
- will do AM cortisol for further investigation of etiology, however, it is possible that there will be no explanation
- garcia has been discontinued
- transfer to telemetry
Paroxysmal atrial fibrillation (on Coumadin, recent cardioversion)
- Currently in sinus rhythm.
- Continue diltiazem
- Resume home warfarin (okay per IR, and speech eval above)
- Cardiology already following
Right lower extremity cellulitis.
- Wound care following
- Continue antibiotics as above
Left shoulder pain
- per PT/OT
- monitor
- shoulder x-ray Left two-view ordered
- PT/OT also recommended acute rehab, consulted physiatry, CM aware
Supratherapeutic INR.
Daily INR.
INR is 2.02
Resume warfarin
Troponin elevation, likely non-ischemic myocardial injury
- History of coronary artery disease status post CABG, Type II OR.
- Troponins have peaked
- Continue to monitor
- Cardiology has been consulted
History aortic stenosis
- status post TAVR
Chronic kidney disease
- creatinine stable
Polymyalgia rheumatica
- Continue steroid
History of R MCA ischemic stroke (2012)
- History of transient altered amnesia
- Neurology consulted
BPH.
- Continue Flomax
Mild hyponatremia
- monitor
CODE STATUS: DNR/DNI
DVT prophylaxis: warfarin
Diet: regular
Anticipated Discharge: > 48 hours
Subjective/Interval History
-
Date of Service: March 03, 2025
nurse and daughter report that his mental status is improving. AOx1 to year.
During my interview, he acknowledged presence and awake.
has been kept npo but since he was asking for ice chips, PO meds may possibly be resumed today
Objective Data
-
Labs:
Laboratory Results
03/03/25 03/03/25
05:26 05:27
WBC 11.0 H
Hgb 13.6
Hct 39.3
Plt Count 128 L
PT 22.5 H
INR 2.02
Sodium Pending
Potassium Pending
Chloride Pending
Carbon Dioxide Pending
BUN Pending
Creatinine Pending
Glucose Pending
Calcium Pending
INR 2.02 this am
CRP from admission 16.8
CK 176
CSF
Clear; colorless; 2 WBC; 8 RBC
58 glucose
Total protein 97
CSF meningitis/encephalititis panel negative
other students pending
TSH 1.41
LFTS normal
LDL normal
flu covid negative
CXR 03/02/2025
IMPRESSION: Low lung volumes. No acute pulmonary process identified.
AXR 03/02/2025
IMPRESSION: Nonobstructive bowel gas pattern.
Vital Signs:
Vital Signs
Temp Pulse Resp BP Pulse Ox
98.6 F 98 18 165/48 97
03/03/25 03:00 03/03/25 04:00 03/03/25 04:00 03/03/25 04:00 03/03/25 04:00
I&O
03/02/25 03/03/25 03/04/25
06:59 06:59 06:59
Intake Total 1530 / 1530 820 / 820
Output Total 2675 / 2675 1650 / 1650
Balance -1145 / -1145 -830 / -830
Review of Systems
-
Unable to obtain full review of systems at this time due to: Acuity
Physical Exam
-
General: Comfortable
HEENT: Normocephalic
Respiratory: Clear to Auscultation (for my exam)
Cardiac: Other (systolic murmur at erbs point; tachycardic)
GI: Soft
Musculoskeletal: Other (wounds on b/l shins, and associated edema 1+)
Skin: Warm
Neuro: Awake and Other (AOx1; moving all 4 extremities)
Psych: Calm
--- NOTE | 2025-03-03 07:26 | EEGC.RPT ---
Continuous EEG Report
Recording
Start Date of Data Reviewed: 03/01/25
Start Time of Data Reviewed: 15:30
End Date of Data Reviewed: 03/02/25
End Time of Data Reviewed: 09:10
Type of EEG: Continuous
Done with Video Recording: Yes
Study Sequence: Initiation of Study
Electrocardiogram: Unremarkable
Patient Status: Inpatient
Report
CONTINUOUS EEG REPORT
Mildly abnormal study for age based on generalized slowing demonstrated bihemispherically equally
CLINICAL CORRELATION:
Although normative values not been established for a person of this advanced age, this study was suggestive of mild bihemispheric cortical dysfunction. No epileptiform features were demonstrated.
If concerns remain regarding epilepsy, prolonged monitoring may be of assistance.
Clinical correlation is advised.
METHODS:
A 21-channel digital electroencephalogram (EEG) was performed at the bedside. The 10/20 international system of electrode placement was used with ECG and lateral/vertical eye movements recorded. Video was recorded. Persyst quantitative EEG analysis
was performed.
IMPRESSION(S):
Quality of study
Good
Background
Low amplitude
Fair anterior-posterior voltage gradient differentiated
Theta frequency maximal background demonstrated
Sleep
Drowsiness present
Hyperventilation
Not performed
Photic Stimulation
Failed to activate the record
ECG
Normal rhythm
Abnormal Activity
None
[2025-03-03] MEDS: MEDROL 4 MG PO (09:26)
[2025-03-03] MEDS: THIAMINE INJECTION 100 MG IV (09:26)
[2025-03-03] MEDS: CARDIZEM SR 120 MG PO ×2 (09:26→20:24)
--- NOTE | 2025-03-03 09:27 | PTOTSP ---
Speech Therapy Evaluation:
Pt with chronic risk factors of dysphagia including hx of R MCA CVA and memory impairment, acutely compounded by toxic metabolic encephalopathy vs seizure. CSF results pending. At bedside, oral phase appeared functional and no overt s/sx of
aspiration across evaluation. Daughter present at bedside who reported no dysphagia hx. CXR without PNA concerns and pt on RA. Risks for developing aspiration complication include feeding dependence, oral care dependence, and impaired ambulation,
however these factors are likely temporary.
Recommend:
1. Regular solids and thin liquids
2. Medications as best tolerated
3. Assistance with feeding
4. Only feed when awake, alert, and accepting
5. Strict aspiration precautions
6. RADIO SPORTSCASTER to follow to monitor tolerance of diet, provide education in precautions, and determine if pt would benefit from instrumental assessment
[2025-03-03] MEDS: VIBRAMYCIN 260 MG IV (09:28)
--- NOTE | 2025-03-03 10:37 | W.PN.ID1 ---
Date of Service
Date of Service: March 03, 2025
Today's Communication
Would follow clinically today, if remains with clear sensorium through the night then could consider discharge tomorrow with a two week course of doxycycline 03/02-03/15 and keflex 02/27-03/05; if PCR results negative then doxycycline might be stopped
early
Assessment / Plan
Toxic Metabolic Encephalopathy - resolving
Leukocytosis
Afib on warfarin
- ehrlichia/anaplasma PCR pending, note normal lfts, low plt, recent history of tick bite
- [place] IgM pending
- has recently been on augmentin - all beta-lactams can cause AMS, stopped; also I am not certain why his UDS was positive for tricyclics based on his medication rec and the medications that have been given here
- continue doxycycline pending anaplasma/ehrlichia PCR
Laceration RLE
Cellulitis - resolving
- blood cultures x2
- switch back to keflex 02/27-03/05
- follow clinically
Would follow clinically today, if remains with clear sensorium through the night then could consider discharge tomorrow with a two week course of doxycycline 03/02-03/15 and keflex 02/27-03/05; if PCR results negative then doxycycline might be stopped
early
Chief Complaint
-: Other (encephalopathy/encephalitis)
Subjective / Review of Systems
afebrile
bp stable
complains
discomfort in the left shoulder
has had clearing sensorium since yesterday - alert, answering questions appropriately and following commands with ease
switched to IV doxycycyline and cefazolin overnight as was initially unable to take pills- now able to take pills
reports no mood stabilizers in the house
Vital Signs / Physical Exam
Vital Signs
Vital Signs
Temp Pulse Resp BP Pulse Ox
98.6 F 98 18 165/48 97
03/03/25 08:19 03/03/25 04:00 03/03/25 04:00 03/03/25 04:00 03/03/25 04:00
Physical Exam
Constitutional: No Acute Distress
Cardiovascular: Regular Rate and S1/S2; Negative Murmur or Rub
Pulmonary: Clear and Symmetric; Negative Wheezes or Rales
Gastrointestinal: Soft, Non Tender, Non Distended and Normal Bowel Sounds
Skin: Warm and Dry; Negative Rash or Jaundice
Wound: Other (right lower extremity, tender, mildly swollen, no surrounding erythema)
Objective Data
Lab Data
Lab Results
03/03/25 05:27
ESR 3 mm/hour (0-20) 03/01/25 08:54
PT 22.5 Sec (11.4-14.6) H 03/03/25 05:26
INR 2.02 03/03/25 05:26
APTT 38.9 Sec (23.4-35.0) H 03/01/25 08:54
Estimated Creat Clear 36 ml/min 03/02/25 04:42
Total Bilirubin 0.8 mg/dl (0.2-1.3) 03/01/25 08:54
AST 28 U/L (17-59) 03/01/25 08:54
ALT 30 U/L (0-50) 03/01/25 08:54
Alkaline Phosphatase 42 U/L (38-126) 03/01/25 08:54
C-Reactive Protein 16.80 mg/L (0.0-10.00) H 03/01/25 08:54
Most recent labs reviewed.
Micro Results:
03/01/25 18:05 MRSA Screen - Final
Nose No Methicillin Resistant Staphylococcus aureus isolated.
03/02/25 15:47 Influenza Types A & B (RUSLAN) - Final
Nasal Swab Negative for Influenza A & B, NAAT
Negative results must be combined with clinical observations
and patient history.
Nucleic Acid Amplification test (NAAT)performed on the
[employer] platform.
03/02/25 08:43 Meningitis/Encephalitis Panel (PCR) - Final
Csf
03/02/25 12:17 CSF Culture - Pending
Csf Gram Stain - Preliminary
03/02/25 12:18 Fungal Culture - Preliminary
Csf Culture in progress.
Positive cultures are reported as soon as detected.
Final report to follow in four to five weeks.
03/02/25 12:18 Acid Fast Bacilli Smear - Pending
Csf Acid Fast Bacilli Culture - Pending
03/01/25 12:15 Blood Culture - Preliminary
Blood/Venous No Growth in 24 hours- Final report to follow
03/01/25 12:15 Blood Culture - Preliminary
Blood/Venous No Growth in 24 hours- Final report to follow
03/01/25 18:05 Blood Parasites Smear - Final
Blood/Venous
--- NOTE | 2025-03-03 10:39 | W.PN.CARDCBS ---
Today's Communication / Plan
-
Resume oral meds
Resume warfarin
Impression / Plan
-
PCP: Dr. Kapadia
Primary Yard Conductor: Dr. IDALIA Zarco
Impression:
Admitted with change in mental status and elevated troponin 03/01/2025
Recent admission for TAVR for severe symptomatic AAS 12/15/2024
h/o remote right MCA territory CVA
Dementia
s/p Right TF TAVR 23 mm Pettit Resilia valve for severe symptomatic /AI 12/15/24
Previous tissue AVR 01/28/2011
Paroxysmal Afib/aflutter
s/p PVI 05/25/18
remote flutter ablation
s/p successful CV 02/02/2025
Chronic warfarin OAC managed by cardiology
CAD s/p CABG at time of tissue AVR with DOLAN to LAD 01/28/11
Patent DOLAN to LAD by cardiac cath 11/22/2024
Gout
HTN
HLD
CKD 3 AA
PVCs
hypothyroidism
PMR
Thoracic aortic aneurysm
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
Echo 11/21/19: EF 55-60%, normal RV size and function, mild MR, normal functioning bovine AVR with peak/mean 20/11 mmHg
Echo 12/03/23: 60-65%, mild conc LVH, normal RV size and function, mild MR, well seated tissue AVR peak/mean 21/13 mmHg and mild aortic regurgitation, mild TR with PAP 20-25 mmHg
Echo 11/08/2024: EF 59 to 63%, moderate MR, dilated LA, bioprosthetic aortic valve with moderate to severe or severe regurgitation with peak/mean gradients 49/26 mmHg, FREDDY 1.4 cm�, mildly dilated RV and RA with PASP 58 mmHg
ECHO 12/15/24: Limited echo post TAVR, EF 50 to 55%, valve in valve TAVR with peak gradient 7 mmHg/mean gradient 4 mmHg, no AR detected
Plan:
From a neurologic perspective he looks much better, still mildly confused/obtunded but clearly conversant, recognize me
proBNP is elevated at 6420 but no overt evidence of heart failure, he is oxygenating reasonably well. Will continue to follow and use furosemide as needed.
Restart warfarin, INR is 2.02, and diltiazem. He remains on methylprednisolone, thiamine, antibiotics.
No atrial fibrillation, he is in sinus rhythm.
Progress Note - Yard Conductor
Subjective
Date of Service: March 03, 2025:
Bill regain consciousness at midnight, still fatigued and mildly confused but now conversant, answering questions, able to recognize me, daughter Treasure at bedside.165/48, 180/89, heart rate 80s, sinus first-degree AV block on telemetry, head neck
exam unremarkable, diffusely ecchymotic, awake, alert, conversant, lungs are clear, regular rate and rhythm soft systolic murmur abdomen benign extremities without clubbing cyanosis or edema,
troponin is 0.137, creatinine yesterday 1.6, today's pending, sodium 134, INR is 2.02
Meds reviewed
Objective
Labs:
03/03/25 05:27
Labs
Hgb 13.6 g/dL (13.0-18.0) 03/03/25 05:27
Hct 39.3 % (39.0-52.0) 03/03/25 05:27
Plt Count 128 10^3/uL (130-400) L 03/03/25 05:27
PT 22.5 Sec (11.4-14.6) H 03/03/25 05:26
INR 2.02 03/03/25 05:26
APTT 38.9 Sec (23.4-35.0) H 03/01/25 08:54
Sodium 134 mmol/L (135-145) L 03/02/25 04:42
Potassium 4.3 mmol/L (3.5-5.1) 03/02/25 04:42
BUN 31 mg/dl (9-20) H 03/02/25 04:42
Creatinine 1.6 mg/dL (0.7-1.3) H 03/02/25 04:42
Glucose 91 mg/dl (70-99) 03/02/25 04:42
Troponins
03/01/25 03/01/25 03/01/25
09:06 12:15 18:05
Troponin I 0.106 H* 0.114 H* 0.131 H*
03/02/25 03/02/25 03/02/25
04:42 12:17 13:26
Troponin I 0.148 H* Cancelled 0.162 H*
03/02/25
20:58
Troponin I 0.137 H*
Vital Signs and I&O:
Vital Signs
Temp Pulse Resp BP Pulse Ox
37.0 C 98 18 165/48 97
03/03/25 08:19 03/03/25 04:00 03/03/25 04:00 03/03/25 04:00 03/03/25 04:00
Vital Signs
Temp Pulse Resp BP Pulse Ox
37.0 C 98 18 165/48 97
03/03/25 08:19 03/03/25 04:00 03/03/25 04:00 03/03/25 04:00 03/03/25 04:00
Intake & Output
03/01/25 03/02/25 03/03/25 03/04/25
07:59 07:59 07:59 07:59
Intake Total 1530 / 1530 820 / 820
Output Total 2675 / 2675 1650 / 1650
Balance -1145 / -1145 -830 / -830
Physical Exam
Physical Exam
See above
--- NOTE | 2025-03-03 11:04 | W.PN.NEURO.1 ---
Addendum entered and electronically signed by Jaime Castellon MD 03/03/25 11:23:
Studies reviewed.
I have personally examined the patient. I reviewed and agree with the OFFICE CASHIER's Note.
My addenda:
Awake, alert, interactive. No acute distress.
Speech intact.
Follows 2-step requests w/o difficulty. No tremor.
Extra-ocular movements grossly intact.
Facial movements full and symmetric. Hearing intact to normal conversational volume.
Normal UE movements bilaterally.
Neck: full ROM.
Chest: no dyspnea
Heart: no JVD
Ext: (-) Clubbing, (-) Cyanosis, (-) Edema
IMPRESSIONS/RECOMMENDATIONS:
Abrupt onset of encephalopathy. Testing so far has been unrevealing for clear etiology despite the patient's sudden improvement which is most likely in part due to absence of routine benzodiazepines. Testing has included MRI of the brain without
contrast, CT of head performed twice, blood work, lumbar puncture, continuous EEG monitoring.
Unclear if patient improved based on routine IV antibiotics or routine thiamine.
Continue thiamine for total of 3 IV doses, would continue to provide thiamine 100 mg until outpatient
Would continue to hold patient's donepezil although this is unlikely to be a source of issues
IV antibiotics as per infectious disease
Goal INR between 2 and 3
D/W patient / family / nursing
All questions answered.
Will continue to follow as needed. Patient should follow with his usual outpatient neurologist.
Original Note:
Today's Communication / Plan
-
.
Neuro Assessment/Plan
Assessment
Abrupt onset of change in mental status as well as being found down with dysarthria. Differential diagnosis no longer includes acute ischemic stroke, focal onset generalized seizures, meningitis given unremarkable CSF results. The most likely
etiology is a viral illness vs toxic metabolic in nature. Additionally, the possibility of postconcussive syndrome is not eliminated.
Plan
Continue supportive care, antibiotics/antivirals per ID.
Continue thiamine 100mg daily.
Continue home warfarin.
avoid benzodiazepines due to risk of additional sedation
may D/C cEEG, no evidence of seizures
Subjective/Objective
Subjective Data
Date of Service: March 03, 2025
No acute events overnight. Patient is alert and coherent today, limb flailing has resolved. He cannot recall the events over the past several days.
Objective Data
Vital Signs
Temp Pulse Resp BP Pulse Ox
98.6 F 98 18 165/48 97
03/03/25 08:19 03/03/25 04:00 03/03/25 04:00 03/03/25 04:00 03/03/25 04:00
Lab Results
03/03/25 05:27
PT 22.5 Sec (11.4-14.6) H 03/03/25 05:26
INR 2.02 03/03/25 05:26
APTT 38.9 Sec (23.4-35.0) H 03/01/25 08:54
Sodium 134 mmol/L (135-145) L 03/02/25 04:42
Potassium 4.3 mmol/L (3.5-5.1) 03/02/25 04:42
BUN 31 mg/dl (9-20) H 03/02/25 04:42
Glucose 91 mg/dl (70-99) 03/02/25 04:42
Calcium 9.4 mg/dl (8.4-10.2) 03/02/25 04:42
Usq-W-Wuozdgbjmoj Pept 6420 pg/ml 03/02/25 04:42
LDL Cholesterol, Calc 52 mg/dl 03/02/25 04:42
Vitamin B12 Cancelled 03/01/25 12:17
Ur Buprenorphine Negative (Negative) 03/01/25 08:54
Patient Allergies
pramipexole (From Mirapex) Allergy (Verified 02/02/25 10:10)
Confusion
meperidine HCl (From Demerol) Adverse Reaction (Mild, Verified 02/02/25 10:10)
Nausea / Vomiting
Review of Systems
-
History Source: Patient
Neuro: Negative Dizzy, Headache, Weakness, Numbness, Ataxia, Tremors or Speech Problem
Physical Exam
-
General: No Apparent Distress
Eyes: No Ptosis and PERRLA
HEENT: Normocephalic and Atraumatic
Neck: Full Range of Motion
GI: Non-distended
Skin: Other (BLE with ecchymosis and abrasions with DSD)
Extremities: No Clubbing, No Cyanosis and No Edema
Extended Neurological Exam
Mood & Affect: Mood Unremarkable and Affect Unremarkable
Attention Span & Concentration: Awake, Alert and Interactive
Memory: Reduced (Reports it is January 2025. Oriented to person, named incorrect hospital name. )
Tremor: Hand Tremor Absent (low amplitude semi rhythmic tremor in distal bilateral upper extremities on exertion) and Head Tremor Absent
Speech: Quality Unremarkable, Quantity Unremarkable and Rate of Production Unremarkable
Cranial Nerves III, IV, : Extraocular Movement: Extraocular Movement Full in all Directions
Cranial Nerve VIII: Hearing: Unremarkable Hearing to Normal Conversational Volume
Cranial Nerve XII: Tongue Protusion: Midline
Muscle Strength, Overall: Reduced Throughout (5-/5 throughout)
Pronator Drift: No Drift in Upper Extremities and No Drift in Lower Extremities
Data Reviewed
-
CT Head: Report Reviewed and Image Reviewed
MRI Head: Report Reviewed and Image Reviewed
EEG: Report Reviewed
Medical Test Reports: Report Reviewed (CSF)
Labs: Report Reviewed
Reviewed with: Physician, Patient and Family
Medications
-
Active Medications
Generic Name Dose Route Start Last Admin
Trade Name Freq PRN Reason Stop Dose Admin
Acetaminophen 650 mg 03/01/25 17:27
Acetaminophen 325 Mg Tablet PO 03/29/25 17:26
Q4HPRN PRN
BAXTER, mild pain, or fever >101F
Albuterol/Ipratropium 3 ml 03/01/25 17:27 03/02/25 09:03
Ipratropium 0.5/Albuterol 3 Mg (3 Ml Ampul) INH 3 ml
R Q4HPRN PRN Administration
shortness of breath
Protocol
Artificial Tears 1 drops 03/01/25 17:33 03/02/25 00:26
Artificial Tears Pf (Refresh) 10 Drop Droperette BOTH EYES 03/29/25 17:32 1 drops
QIDPRN PRN Administration
DRY EYE
Bisacodyl 10 mg 03/01/25 17:27
Bisacodyl 10 Mg Rectal Suppository RECTAL 03/29/25 17:26
[id number] PRN
constipation
Colchicine 0.6 mg 03/01/25 17:27
Colchicine 0.6 Mg Tablet PO 03/29/25 17:26
DAILYPRN PRN
gout flare
Diltiazem HCl 120 mg 03/01/25 20:00 03/03/25 09:26
Diltiazem 120 Mg Sustained Release (12 H) Capsule PO 03/29/25 19:59 120 mg
BID BHAVESH Administration
Donepezil HCl 5 mg 03/01/25 22:00 03/01/25 23:43
Donepezil 5 Mg Tablet PO 03/29/25 21:59 Not Given
On Hold: 03/02/25 15:56 HS BHAVESH
Cefazolin Sodium 1 gram in 5 mls @ 60 mls/hr 03/02/25 20:00 03/03/25 03:24
Ancef IV 5 mls
Q8H BHAVESH Administration
Doxycycline Hyclate 100 mg/ 260 mls @ 260 mls/hr 03/02/25 20:00 03/03/25 09:28
Sodium Chloride IV 260 mls
Q12H BHAVESH Administration
Sodium Chloride 1,000 mls @ 80 mls/hr 03/02/25 20:45 03/03/25 02:42
Nss IV 1,000 mls
.[id number] BHAVESH Administration
Levothyroxine Sodium 125 mcg 03/02/25 06:00 03/03/25 06:34
Levothyroxine 125 Mcg Tablet PO 03/30/25 05:59 Not Given
DAILY@0600 BHAVESH
Methylprednisolone 4 mg 03/02/25 08:00 03/03/25 09:26
Methylprednisolone 4 Mg Tablet PO 03/30/25 07:59 4 mg
DAILY BHAVESH Administration
Ondansetron HCl 4 mg 03/01/25 16:30 03/01/25 16:34
Ondansetron 4 Mg/2 Ml Vial IV 03/29/25 16:29 4 mg
Q6HPRN PRN Administration
NAUSEA/VOMITING
Polyethylene Glycol 17 grams 03/01/25 17:27
Polyethylene Glycol Powder 17 Grams Packet PO 03/29/25 17:26
DAILYPRN PRN
constipation
Senna/Docusate Sodium 1 tablet 03/01/25 17:27
Docusate W/Senna (Ange-Colace) Tablet PO 03/29/25 17:26
BIDPRN PRN
constipation
Sodium Chloride 0 flush 03/01/25 16:00
Sodium Chloride 0.9% (Flush) Syringe IV 03/29/25 15:59
PER PROTOCOL BHAVESH
Sodium Chloride 0 ml 03/02/25 11:00
Sodium Chloride 0.9% (Preservative Free) 10 Ml Vial IV 03/30/25 10:59
PRN PRN
IV Lorazepam dilution
Protocol
Tamsulosin HCl 0.4 mg 03/03/25 09:52
Tamsulosin 0.4 Mg Capsule PO 03/30/25 07:59
HS BHAVESH
Thiamine HCl 100 mg 03/01/25 14:00 03/03/25 09:26
Thiamine (100 Mg/Ml) 2 Ml Vial IV 03/04/25 13:59 100 mg
DAILY BHAVESH Administration
Warfarin Sodium 1.5 mg 03/03/25 18:00
Warfarin 0.5 Mg (1/2 Of 1 Mg Tablet) PO 03/08/25 17:59
QPM BHAVESH
Home Medications
�Medication �Instructions �Recorded
colchicine 0.6 mg tablet (Colcrys) 0.6 mg PO PRN PRN gout flare 06/20/21
diltiazem HCl 120 mg 120 mg PO BID Arrhythmia 06/20/21
capsule,extended release 12 hr
evolocumab 140 mg/mL subcutaneous 140 mg SC Q2W High Cholesterol 10/22/22
syringe (Repatha Syringe)
hydrocodone 5 mg-acetaminophen 325 1 tab PO DAILYPRN PRN back pain 10/22/22
mg tablet
levothyroxine 125 mcg tablet 125 mcg PO DAILY Thyroid 10/22/22
(Synthroid)
donepezil 5 mg tablet (Aricept) 5 mg PO HS Neurological Condition 10/06/24
methylprednisolone 4 mg tablet 4 mg PO DAILY Anti-Inflammatory 10/06/24
warfarin 1 mg tablet (Jantoven) 1.5 mg PO QPM Blood Clot 12/09/24
Prevention/Tx
acetaminophen 325 mg tablet 650 mg (2 x 325 mg) PO Q4HPRN PRN 12/16/24
BAXTER, mild pain, or fever >101F #0
tabs
amoxicillin 875 mg-potassium 1 tab PO BID LEG WOUND 03/01/25
clavulanate 125 mg tablet
docusate sodium 100 mg capsule 100 mg PO Q48H Constipation 03/01/25
peg 400-propylene glycol (PF) 0.4 1 drp BOTH EYES QIDPRN PRN DRY EYE 03/01/25
%-0.3 % eye drops in a dropperette
tamsulosin 0.4 mg capsule 0.4 mg PO DAILY Urinary Issue 03/01/25
[2025-03-03] MEDS: REFRESH EYE DROPS (PF) 1 DROPS BOTH EYES ×2 (12:22→17:43)
[2025-03-03] MEDS: KEFLEX 500 MG PO ×3 (12:22→21:23)
[2025-03-03 12:52] LABS: Blood Urea Nitrogen 30 mg/dl (9-20); Calcium 9.1 mg/dl (8.4-10.2); Chloride 102 mmol/L (98-107); Estimated Creatinine Clearance 39 ml/min; Glucose 92 mg/dl (70-99); Magnesium 1.7 mg/dl (1.6-2.3); Potassium 3.7 mmol/L (3.5-5.1); Sodium 131 mmol/L (135-145); eGFR 45.62
[2025-03-03 13:18] LABS: Carbon Dioxide 28 mmol/L (22-30)
[2025-03-03] MEDS: TYLENOL 650 MG PO (15:24)
--- NOTE | 2025-03-03 16:54 | PTCARENOTE ---
Patients improving gradually throughout the day, compared to AM assessment (see documentation), speech is now clearer and faster with more facial animation, increased alertness, tremors have decreased to almost none in the hands, patient now AAOx3.
VSS, RA. R inner eye bloodshot. Family at bedside. Patient c/o L shoulder pain with movement, Xray done; patient also c/o constipation, colace to be ordered per patients request. Appetite fair but improving. NSR on monitor. Parris DCd, awaiting first
void. Downgraded to telemetry. Will continue to closely monitor.
[2025-03-03] MEDS: COLACE 100 MG PO (17:42)
[2025-03-03] MEDS: COUMADIN 1.5 MG PO (17:42)
--- NOTE | 2025-03-03 17:47 | CM ---
Patient seen at bedside in IMU with patient family present and physicians. Patient stated that he would consider [facility] referral. CM will send referral via all script. Physician placed PM&R consult. CM will continue to follow for discharge planning
needs.
Plan; Jes[facility] referral pending medical treatment plan
--- NOTE | 2025-03-03 19:07 | PTCARENOTE ---
Pt. transferred from u. Call alan within reach.
[2025-03-03] MEDS: VIBRAMYCIN 100 MG PO (20:24)
[2025-03-03] MEDS: FLOMAX 0.4 MG PO (21:23)
[2025-03-03] MEDS: NSS IV (23:35)
[2025-03-04 03:42] VITALS: BP 149/84
[2025-03-04] MEDS: NSS 1000 IV (05:33)
[2025-03-04] MEDS: SYNTHROID 125 MCG PO (05:33)
[2025-03-04 05:34] VITALS: BMI 22.9
--- NOTE | 2025-03-04 07:17 | W.PN.HOSP.TC ---
Addendum entered and electronically signed by Santa Wilson MD 03/04/25 19:46:
I saw and evaluated the patient independently. I reviewed and discussed the resident�s note and agree with findings and plan as documented in the resident�s note.
GENERAL: well developed, well nourished, male in no apparent distress--still seems a bit confused but better than 03/03
HEENT:NC/AT
HEART: irreg irreg
LUNGS : clear to auscultation bilaterally
ABDOM: soft, nontender, nondistended, + bowel sounds
EXT: no cyanosis, clubbing, or edema--left shoulder pain
NEUROLOGIC: moves all extremities
: garcia
PSYCH: still confused
Acute toxic metabolic encephalopathy with Abrupt onset of altered mental status, dysarthria, and tremulous movements--CT/CTA brain/head neg, MRI brain neg, EEG neg, LP neg for encephalitis--working diagnosis toxic metabolic encephalopathy--pt 'woke'
up today and started talking--still have no definitive diagnosis and told family may not ever get one--apprec neuro/ID/cards--currently on doxy/keflex (ceftriaxone/acyclovir stopped), blood cultures neg--urine tox positive for tricyclics (? false
positive with benadryl)--passed speech--therapy recommending ACUTE rehab, pt declines, therapy re-evaluated and now recommending home health, pt does not wish to stay in house until tomorrow, will d/c---cont thiamine
Paroxysmal atrial fibrillation (on Coumadin, recent cardioversion)--cont diltiazem and resume coumadin--follow INR--apprec cards
Right lower extremity cellulitis- Wound care following- Continue antibiotics as above
Left shoulder pain--shoulder x-ray with arthritis--pain control, therapy
Coagulopathy due to Supratherapeutic INR from warfarin--follow INR--resume coumadin--goal INR 2-3
Troponin elevation, likely non-ischemic myocardial injury- History of coronary artery disease status post CABG, Type II WA-- Troponins have peaked- Continue to monitor- Cardiology has been consulted
History aortic stenosis - status post TAVR
Chronic kidney disease stage 3- creatinine stable
Polymyalgia rheumatica- Continue steroid--check AM cortisol
History of R MCA ischemic stroke (2012)- History of transient altered amnesia- Neurology consulted
BPH-- Continue Flomax--garcia discontinued
Mild hyponatremia- monitor
CODE STATUS-- DNR/DNI
DVT proph-- warfarin
Original Note:
Today's Communication/Plan
-
- per Cardiology, additional dose warfarin
- MRI L shoulder
- PT/OT to re-evaluate disposition
- repeat UA with toxicology
- f/u end user consultant recommendations
- d/c telemetry
- IVF discontinued
Assessment / Plan
Assessment / Plan
Impression:
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
TAVR, CKD, hypertension, hyperlipidemia, hypothyroidism, JORDIN, gout, polymyalgia rheumatica, and memory changes with behavioral disturbance. who came to the ER as a stroke alert, He was reportedly at baseline at 0430 when his saw him ambulating.
At 0600, he was asleep in bed. Around 0625, his found him on the floor next to the bed, confused, speech reduced to garbled sounds, stiff, and tremulous. EMS was activated and a stroke alert was initiated en route.
On arrival to ED:
CT Head and CTA Head/Neck: No acute abnormalities, ASPECT score 10.
CT Perfusion: Core 12 mL, penumbra 10 mL, mismatch -2 mL in prior R MCA stroke region (possible artifact).
NIHSS: 6.
MRI brain shows: No acute intracranial abnormality.Not a candidate for TNK/IAT due to warfarin use (INR 3.18) and no LVO.
Recently completed a short course of antibiotics for right carrington cellulitis after trauma with a tree branch ~10 days ago.
Collateral history from and daughters: Baseline speech is clear, ambulatory, independent with ADLs. No seizure history. Mild short-term memory lapses at baseline. Recent Keflex course for leg redness. No recent medication changes except
discussion about tapering methylprednisolone (currently 4 mg daily).
Interval events
Assessment/plan:
Acute toxic metabolic encephalopathy
Abrupt onset of altered mental status, dysarthria, and tremulous movements. Differential includes:
Acute ischemic stroke (ruled out by MRI)
Seizure or postictal state (ruled out by EEG) EEG: No epileptiform activity.
Toxic/metabolic encephalopathy (sepsis cellulitis?, tickborne disease, West Nile virus,.. etc)
Hypotension or syncope
CT Head and CTA Head/Neck: No acute abnormalities, ASPECT score 10.
CT Perfusion: Core 12 mL, penumbra 10 mL, mismatch -2 mL in prior R MCA stroke region (possible artifact).
NIHSS: 6.
MRI brain shows: No acute intracranial abnormality.By neurology in the ER
- Infectious disease and neurology consulted
- Per ID, LP not consistent with encephalitis; elevated protein, other studies pending
- Per ID, continue doxycycline/keflex
- Blood culture negative growth for 72h
- Urine drug screen positive for tricyclic, possible Benadryl at home -> repeat UA with tox screen
- AM cortisol within normal limits points away from adrenal insufficiency
- Dr. Maguire appears significantly improved, will discontinue telemetry
- it is possible that this is due a post-concussion syndrome, but the workup is largely negative thus far with several pending studies. It is possible that there will be no clear etiology identified.
- He is tolerating PO, IVF were d'donis
Paroxysmal atrial fibrillation (on Coumadin, recent cardioversion)
- Currently in sinus rhythm.
- Continue diltiazem
- INR = 1.68
- per cardiology, additional dose warfarin
Right lower extremity cellulitis.
- Wound care following
- Continue antibiotics as above
Left shoulder pain
- per PT/OT
- monitor
- shoulder x-ray showed no acute process
- MRI L shoulder ordered
- PT/OT asked to re-evalaute for disposition
- lidocaine patch daily prn available
Subtherapeutic INR.
Daily INR.
INR is 1.68
per Cardiology, additional dose warfarin
continue warfarin
Troponin elevation, likely non-ischemic myocardial injury
- History of coronary artery disease status post CABG, Type II WA.
- Troponin has peaked
History aortic stenosis
- status post TAVR
Chronic kidney disease
- creatinine 1.6
Polymyalgia rheumatica
- Continue steroid
History of R MCA ischemic stroke (2012)
- History of transient altered amnesia
- Neurology consulted
BPH.
- Continue Flomax
Mild hyponatremia
- monitor
CODE STATUS: DNR/DNI
DVT prophylaxis: warfarin
Diet: regular
Anticipated Discharge: 24 - 48 hours
Subjective/Interval History
-
Date of Service: March 04, 2025
patient reports feeling better but is complaining of L shoulder pain
Objective Data
-
Labs:
Laboratory Results
03/04/25
06:00
WBC Pending
Hgb Pending
Hct Pending
Plt Count Pending
PT Pending
INR Pending
Sodium Pending
Potassium Pending
Chloride Pending
Carbon Dioxide Pending
BUN Pending
Creatinine Pending
Glucose Pending
Calcium Pending
Random cortisol 11.9
shoulder x-ray 03/04/2025:
IMPRESSION
Mild glenohumeral and acromioclavicular osteoarthrosis.
Vital Signs:
Vital Signs
Temp Pulse Resp BP Pulse Ox
98.8 F 65 20 149/84 98
03/04/25 03:42 03/04/25 03:42 03/04/25 03:42 03/04/25 03:42 03/04/25 03:42
I&O
03/03/25 03/04/25 03/05/25
06:59 06:59 06:59
Intake Total 820 / 820 240 / 240
Output Total 1650 / 1650 1200 / 1200
Balance -830 / -830 -960 / -960
Review of Systems
-
History Source: Patient
Constitutional: Reports No Symptoms
EENT: Reports No Symptoms Reported
Respiratory: Reports No Symptoms
Cardiac: Reports No Symptoms
Abdomen/GI: Reports No Symptoms
Genitourinary: Reports No Symptoms
Musculoskeletal: Reports Muscle Weakness (difficulty raising shoulders)
Neuro: Reports No Symptoms
Physical Exam
-
General: Comfortable
HEENT: Normocephalic
Respiratory: Clear to Auscultation (for my exam)
Cardiac: Other (systolic murmur at erbs point; tachycardic)
GI: Soft and Nontender
Musculoskeletal: Other (wounds on b/l shins, and associated edema 1+)
Skin: Warm
Neuro: Awake, AO x 3, Nonfocal/Grossly Intact and Central Nerve's Intact
Psych: Calm
[2025-03-04 07:20] VITALS: BP 141/89
[2025-03-04 07:45] LABS: Hematocrit 38.9 % (39.0-52.0); Hemoglobin 13.3 g/dL (13.0-18.0); Mean Corp Hgb Conc. 34.2 g/dL (33.0-37.0); Mean Corpuscular Volume 94.0 fL (80.0-94.0); Platelet Count 134 10^3/uL (130-400); Red Cell Dist. Width 13.2 % (11.5-14.5)
[2025-03-04 07:55] LABS: INR 1.68; PT 19.9 Sec (11.4-14.6)
[2025-03-04 08:21] LABS: Blood Urea Nitrogen 26 mg/dl (9-20); Calcium 9.0 mg/dl (8.4-10.2); Carbon Dioxide 24 mmol/L (22-30); Chloride 105 mmol/L (98-107); Estimated Creatinine Clearance 36 ml/min; Glucose 97 mg/dl (70-99); Magnesium 1.7 mg/dl (1.6-2.3); Potassium 3.9 mmol/L (3.5-5.1); Sodium 134 mmol/L (135-145); eGFR 42.22
[2025-03-04] MEDS: CARDIZEM SR 120 MG PO (08:25)
[2025-03-04] MEDS: VIBRAMYCIN 100 MG PO (08:25)
[2025-03-04] MEDS: MEDROL 4 MG PO (08:25)
[2025-03-04] MEDS: MIRALAX 17 GRAMS PO (08:26)
[2025-03-04] MEDS: THIAMINE INJECTION 100 MG IV (08:26)
[2025-03-04] MEDS: KEFLEX 500 MG PO ×3 (08:30→17:14)
[2025-03-04 08:43] LABS: Cortisol, Random 11.9 ug/dl
[2025-03-04 11:00] VITALS: BP 137/95
--- NOTE | 2025-03-04 12:10 | W.PN.CARDCBS ---
Today's Communication / Plan
-
Additional 1.5 mg of warfarin today
Impression / Plan
-
PCP: Dr. Kapadia
Primary Bit Sharpener: Dr. IDALIA Zarco
Impression:
Admitted with change in mental status and elevated troponin 03/01/2025
Recent admission for TAVR for severe symptomatic AAS 12/15/2024
h/o remote right MCA territory CVA
Dementia
s/p Right TF TAVR 23 mm Pettit Resilia valve for severe symptomatic /AI 12/15/24
Previous tissue AVR 01/28/2011
Paroxysmal Afib/aflutter
s/p PVI 05/25/18
remote flutter ablation
s/p successful CV 02/02/2025
Chronic warfarin OAC managed by cardiology
CAD s/p CABG at time of tissue AVR with DOLAN to LAD 01/28/11
Patent DOLAN to LAD by cardiac cath 11/22/2024
Gout
HTN
HLD
CKD 3 AA
PVCs
hypothyroidism
PMR
Thoracic aortic aneurysm
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
Echo 11/21/19: EF 55-60%, normal RV size and function, mild MR, normal functioning bovine AVR with peak/mean 20/11 mmHg
Echo 12/03/23: 60-65%, mild conc LVH, normal RV size and function, mild MR, well seated tissue AVR peak/mean 21/13 mmHg and mild aortic regurgitation, mild TR with PAP 20-25 mmHg
Echo 11/08/2024: EF 59 to 63%, moderate MR, dilated LA, bioprosthetic aortic valve with moderate to severe or severe regurgitation with peak/mean gradients 49/26 mmHg, FREDDY 1.4 cm�, mildly dilated RV and RA with PASP 58 mmHg
ECHO 12/15/24: Limited echo post TAVR, EF 50 to 55%, valve in valve TAVR with peak gradient 7 mmHg/mean gradient 4 mmHg, no AR detected
Plan:
He continues to make dramatic neurologic progress and is now close to baseline mental state.
Cardiac status also stable. proBNP was 6420, but no overt evidence of heart failure. Will repeat proBNP in AM.
INR is 1.68. Will give additional 1.5 mg of warfarin now and also give p.m. dose.
Otherwise, no new recommendations, continue meds.
Discharge planning.
Progress Note - Bit Sharpener
Subjective
Date of Service: March 04, 2025:
Ralph is much more awake and alert, sitting in chair, comfortable, Sub conjunctival hemorrhage right eye, offers no complaints, daughters at bedside, think he was doing well.
Labs, vital signs as below
Now off telemetry.137/95, pulse 87, respiratory rate 16, afebrile, subconjunctival hemorrhage is noted h right eye, lungs are relatively clear, soft systolic murmur with extrasystoles, no edema, abdomen benign, ecchymoses throughout.,
BUN and creatinine 26 and 1.6, hemoglobin is 13.3., Potassium is 3.9, sodium 134.
INR is 1.68.
Objective
Labs:
03/04/25 07:21
03/04/25 07:22
Labs
Hgb 13.3 g/dL (13.0-18.0) 03/04/25 07:21
Hct 38.9 % (39.0-52.0) L 03/04/25 07:21
Plt Count 134 10^3/uL (130-400) 03/04/25 07:21
PT 19.9 Sec (11.4-14.6) H 03/04/25 07:21
INR 1.68 03/04/25 07:21
APTT 38.9 Sec (23.4-35.0) H 03/01/25 08:54
Sodium 134 mmol/L (135-145) L 03/04/25 07:22
Potassium 3.9 mmol/L (3.5-5.1) 03/04/25 07:22
BUN 26 mg/dl (9-20) H 03/04/25 07:22
Creatinine 1.6 mg/dL (0.7-1.3) H 03/04/25 07:22
Glucose 97 mg/dl (70-99) 03/04/25 07:22
Troponins
03/01/25 03/01/25 03/02/25
12:15 18:05 04:42
Troponin I 0.114 H* 0.131 H* 0.148 H*
03/02/25 03/02/25 03/02/25
12:17 13:26 20:58
Troponin I Cancelled 0.162 H* 0.137 H*
Vital Signs and I&O:
Vital Signs
Temp Pulse Resp BP Pulse Ox
36.6 C 87 16 137/95 98
03/04/25 11:00 03/04/25 11:00 03/04/25 11:00 03/04/25 11:00 03/04/25 11:00
Vital Signs
Temp Pulse Resp BP Pulse Ox
36.6 C 87 16 137/95 98
03/04/25 11:00 03/04/25 11:00 03/04/25 11:00 03/04/25 11:00 03/04/25 11:00
Intake & Output
03/02/25 03/03/25 03/04/25 03/05/25
07:59 07:59 07:59 07:59
Intake Total 1530 / 1530 820 / 820 240 / 240
Output Total 2675 / 2675 1650 / 1650 1200 / 1200
Balance -1145 / -1145 -830 / -830 -960 / -960
Physical Exam
Physical Exam
See above
[2025-03-04] MEDS: COUMADIN 1.5 MG PO ×2 (12:25→17:14)
[2025-03-04 15:40] VITALS: BP 142/84
--- NOTE | 2025-03-04 15:55 | W.PN.ID1 ---
Date of Service
Date of Service: March 04, 2025
Today's Communication
continue doxycycline pending anaplasma/ehrlichia PCR tentatively for two weeks 03/02-03/15, if PCR results negative then doxycycline might be stopped early
tomorrow is final day of keflex
Assessment / Plan
Toxic Metabolic Encephalopathy - resolving
Leukocytosis
Afib on warfarin
- ehrlichia/anaplasma PCR pending, note normal lfts, low plt, recent history of tick bite
- [place] IgM serum and CSF pending
- continue doxycycline pending anaplasma/ehrlichia PCR tentatively for two weeks 03/02-03/15, if PCR results negative then doxycycline might be stopped early
Laceration RLE
Cellulitis - resolving
- blood cultures x2
- c/w keflex 02/27-03/05
- follow clinically
Chief Complaint
-: Other (encephalopathy )
Subjective / Review of Systems
afebrile
bp stable
mental status has continued to clear
Vital Signs / Physical Exam
Vital Signs
Vital Signs
Temp Pulse Resp BP Pulse Ox
97.9 F 87 16 137/95 98
03/04/25 11:00 03/04/25 11:00 03/04/25 11:00 03/04/25 11:00 03/04/25 11:00
Physical Exam
Constitutional: No Acute Distress
Cardiovascular: Regular Rate and S1/S2; Negative Murmur or Rub
Pulmonary: Clear and Symmetric; Negative Wheezes or Rales
Gastrointestinal: Soft, Non Tender, Non Distended and Normal Bowel Sounds
Skin: Warm and Dry; Negative Rash or Jaundice
Wound: Other (R leg no surrounding erythema)
Objective Data
Lab Data
Lab Results
03/04/25 07:21
03/04/25 07:22
ESR 3 mm/hour (0-20) 03/01/25 08:54
PT 19.9 Sec (11.4-14.6) H 03/04/25 07:21
INR 1.68 03/04/25 07:21
APTT 38.9 Sec (23.4-35.0) H 03/01/25 08:54
Estimated Creat Clear 36 ml/min 03/04/25 07:22
Total Bilirubin 0.8 mg/dl (0.2-1.3) 03/01/25 08:54
AST 28 U/L (17-59) 03/01/25 08:54
ALT 30 U/L (0-50) 03/01/25 08:54
Alkaline Phosphatase 42 U/L (38-126) 03/01/25 08:54
C-Reactive Protein 16.80 mg/L (0.0-10.00) H 03/01/25 08:54
Most recent labs reviewed.
Micro Results:
03/01/25 12:15 Blood Culture - Preliminary
Blood/Venous No Growth in 72 hours- Final report to follow
03/01/25 12:15 Blood Culture - Preliminary
Blood/Venous No Growth in 72 hours- Final report to follow
03/02/25 12:17 CSF Culture - Preliminary
Csf No Growth After 48 Hours
Gram Stain - Preliminary
03/01/25 18:05 MRSA Screen - Final
Nose No Methicillin Resistant Staphylococcus aureus isolated.
03/02/25 15:47 Influenza Types A & B (RUSLAN) - Final
Nasal Swab Negative for Influenza A & B, NAAT
Negative results must be combined with clinical observations
and patient history.
Nucleic Acid Amplification test (NAAT)performed on the
[employer] platform.
03/02/25 08:43 Meningitis/Encephalitis Panel (PCR) - Final
Csf
03/02/25 12:18 Fungal Culture - Preliminary
Csf Culture in progress.
Positive cultures are reported as soon as detected.
Final report to follow in four to five weeks.
03/02/25 12:18 Acid Fast Bacilli Smear - Pending
Csf Acid Fast Bacilli Culture - Pending
03/01/25 18:05 Blood Parasites Smear - Final
Blood/Venous
--- NOTE | 2025-03-04 16:26 | CM ---
Patient did much better in PT today. Plan now is home with [facility] per choice of and patient.
REferral will need to be put into [facility] for [facility]. He may need cognitive therapy as outpatient in [facility] neuro outpatient program. IF concern about his driving the OT could evaluate for return to driving.
--- NOTE | 2025-03-04 17:51 | W.DCSUMMARY ---
Addendum entered and electronically signed by Santa Wilson MD 03/04/25 19:48:
Read, reviewed, and agree. See same day progress note for additional details. Time spent coordinating care, DC planning, review of DC plan of care with resident, transition of care, review of records in EMR, med rec, consults, notes, d/w
consultants, nursing, family, and CM = 40 minutes
Original Note:
Discharge Summary
Discharge Data
Date of Admission: 03/01/25
Date of Discharge: 03/04/25
-
Pending Results: Yes
Additional Pending Results:
pending anaplasma/ehrlichia PCR; MRI L shoulder
Hospital Course
Discharging Physician : Dr. Santa Wilson, Dr. Jose Enrique Gonsales
Disposition : Home with home care
Primary care physician : Scottie Kapadia
Principal Discharge diagnosis : Acute toxic metabolic encephalopathy; Paroxysmal atrial fibrillation; Right lower extremity cellulitis; Left shoulder pain; non-ischemic myocardial injury; hyponatremia
Chronic Discharge diagnosis : History aortic stenosis s/p TAVR; Chronic kidney disease; Polymyalgia rheumatica; History of R MCA ischemic stroke (2012); BPH; CAD s/p CABG
Hospital Course :
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
hypothyroidism, JORDIN, gout, polymyalgia rheumatica, and memory changes with behavioral disturbance. who came to the ER as a stroke alert, He was reportedly at baseline at 0430 when his saw him ambulating. On 03/01, at 0600, he was asleep in bed.
Around 0625, his found him on the floor next to the bed, confused, speech reduced to garbled sounds, stiff, and tremulous. EMS was activated and a stroke alert was initiated en route.
On arrival to ED:
CT Head and CTA Head/Neck: No acute abnormalities, ASPECT score 10.
CT Perfusion: Core 12 mL, penumbra 10 mL, mismatch -2 mL in prior R MCA stroke region (possible artifact).
NIHSS: 6.
MRI brain shows: No acute intracranial abnormality. He was not a candidate for TNK/IAT due to warfarin use (INR 3.18) and no LVO.
Recently completed a short course of antibiotics for right carrington cellulitis after trauma with a tree branch ~10 days ago.
Collateral history from and daughters: Baseline speech is clear, ambulatory, independent with ADLs. No seizure history. Mild short-term memory lapses at baseline. Recent Keflex course for leg redness. No recent medication changes except
discussion about tapering methylprednisolone (currently 4 mg daily).
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 He is being discharged under strict guidance for no driving and taking assistance as needed for his independent activities of daily living. The patient has expressed understanding that
he will not drive. His , Sandra, stated that she will drive him home and provide assistance [facility].
Per Case management's last discussion, VN care is being arranged with [facility] and PT/OT for cognitive evaluation and therapy and referrals were being made.
Pending studies: if pending anaplasma/ehrlichia PCR are negative, he may discontinue the doxycycline.
The following problems were addressed during this admission:
Acute toxic metabolic encephalopathy
Abrupt onset of altered mental status, dysarthria, and tremulous movements.
Ddx includes the below
Acute ischemic stroke (ruled out by MRI)
Seizure or postictal state (ruled out by EEG) EEG: No epileptiform activity.
Toxic/metabolic encephalopathy (sepsis cellulitis?, tickborne disease, West Nile virus,.. etc)
Hypotension or syncope
Possible concussion, post-concussion sequelae
CT Head and CTA Head/Neck: No acute abnormalities, ASPECT score 10.
CT Perfusion: Core 12 mL, penumbra 10 mL, mismatch -2 mL in prior R MCA stroke region (possible artifact).
NIHSS: 6.
MRI brain shows: No acute intracranial abnormality
- Infectious disease and neurology consulted
- Per ID, LP not consistent with encephalitis; elevated protein, other studies pending
- Per ID, continue doxycycline/keflex into outpatient until 03/15 for doxycyline, 03/05 for keflex
- per ID, if cognitive status has improved, he can be discharged on PO abx pending the anaplasma/ehrlichia PCR; since patient is insisting on discharge, scripts have been sent to pharmacy on record
- Blood culture negative growth for 72h
- Urine drug screen positive for tricyclic, possible Benadryl at home -> repeat UA with tox screen has been ordered
- AM cortisol within normal limits points away from adrenal insufficiency
- Dr. Maguire appears significantly improved today and is tolerating PO, ambulating to/from bathroom with assistance as needed.
- it is possible that this is due a post-concussion syndrome, but the workup is largely negative thus far with several pending studies.
- It is possible that there will be no clear etiology identified. However, the most likely etiology is still toxic/metabolic encephalopathy.
Paroxysmal atrial fibrillation (on Coumadin, recent cardioversion)
Subtherapeutic INR
- Currently in sinus rhythm.
- Continue diltiazem
- INR = 1.68 on day of discharge; cardiology gave one time extra dose of warfarin on the day of discharge
- he reports monitoring his own INR at home
Right lower extremity cellulitis.
- Per ID, continue doxycycline/keflex into outpatient until 03/15 for doxycyline, 03/05 for keflex
Left shoulder pain
- shoulder x-ray showed no acute process
- MRI L shoulder, impression not yet resulted
non-ischemic myocardial injury
- History of coronary artery disease status post CABG, Type II [place].
- Troponin has peaked
History aortic stenosis
- status post TAVR
Chronic kidney disease
- creatinine 1.6 on day of discharge
Polymyalgia rheumatica
- Continue steroid
History of R MCA ischemic stroke (2012)
- History of transient altered amnesia
- Neurology consulted
BPH
- Continue Flomax
Hyponatremia, mild
- Na+ on admission 131
- day of discharge, Na+ 134
HLD
- home repatha
Important imaging findings :
03/01/2025 CT Head noncontrast
IMPRESSION:
No acute intracranial abnormality
03/01/2025 CT Brain perfusion
CBF <30% Volume: 12 mL (estimate of ischemic core)
Tmax >6 second Volume: 10 mL (critically hypoperfused tissue)
CBF/Tmax Mismatch Volume: -2 mL (ischemic penumbra)
CBF/Tmax Mismatch Ratio: 0.8
Hypoperfusion Index (Tmax >10s/Tmax >6s): 0.0 (predicts rate of collateral flow, infarct growth, and clinical outcome)
CBV Index (rCBV in Tmax >6s): -
03/01/2025 CTA Head/Neck
IMPRESSION:
CTA Head: No significant arterial stenosis. No large vessel occlusion No aneurysm.
CTA Neck: No significant arterial stenosis. No large vessel occlusion.
03/01/2025 MRI Brain
FINDINGS:
Some of the sequences are limited by motion artifact.
Moderate age-related parenchymal atrophy. Stable chronic transcortical infarct in the right temporoparietal region with encephalomalacia and gliosis. Mild ex vacuo dilatation of the atrium and temporal horn of the right lateral ventricle. Small
chronic lacunar infarcts in the cerebellum. T2/FLAIR hyperintense signal in the white matter of the bilateral cerebral hemispheres, most compatible with mild chronic microangiopathic ischemia. No mass effect, midline shift, or extra axial
collection. No abnormal signal intensity on diffusion-weighted images.
The vascular flow voids at the skull base are unremarkable, as far as visualized.
The paranasal sinuses and mastoids are clear. Bilateral ocular lens implants.
IMPRESSION:
No acute intracranial abnormality.
Stable chronic findings, as detailed above.
03/01/2025 CXR
IMPRESSION:
No acute cardiopulmonary abnormality.
Small ossification along the superior aspect of the distal clavicle which appears new from prior and in the setting of trauma may represent a small fracture fragment. Recommend correlation with point tenderness.
03/02/2025 CT Head noncontrast
IMPRESSION: No acute intracranial abnormality.
03/02/2025 Abdominal x-ray
IMPRESSION: Nonobstructive bowel gas pattern.
03/02/2025 CXR
IMPRESSION: Low lung volumes. No acute pulmonary process identified.
03/03/2025 Shoulder x-ray
IMPRESSION:
Mild glenohumeral and acromioclavicular osteoarthrosis.
03/03/2025 Shoulder MRI
- impression not yet posted
Procedure findings :
03/02/2025 Lumbar Puncture
IMPRESSION:
Technically successful fluoroscopically guided lumbar puncture.
CSF
Clear; colorless; 2 WBC; 8 RBC
58 glucose
Total protein 97
CSF meningitis/encephalitis panel negative
other studies pending
Discharge Plan
-
Patient Disposition: Home with Home Care
Discharge Diagnosis/Procedures: Acute toxic metabolic encephalopathy; Paroxysmal atrial fibrillation; Right lower extremity cellulitis; Left shoulder pain; non-ischemic myocardial injury; History aortic stenosis s/p TAVR; Chronic kidney disease;
Polymyalgia rheumatica; History of R MCA ischemic stroke (2012); BPH; hyponatremia
Condition: Fair
Diet: Low Cholesterol
Activity: With assistance
Driving Restrictions: No driving
Other Services: VN, PT and OT
Referrals:
Jaime Castellon MD [Active, Neurology] - in three to four weeks
Scottie Kapadia DO [Family Provider, Family Practice]
Additional Discharge Medication Instructions: Please take Keflex 4x a day through the end of 03/05/2025.
Please take Doxycycline 2x a day by mouth through the end of 03/15/2025.
If the pending anaplasma/ehrlichia PCR come back negative., then you can stop taking the doxycycline potentially earlier.
You have been set up with a Visiting Nurse and PT/OT will continue to follow-up as you are discharged.
You ARE NOT PERMITTED TO DRIVE until further evaluation by PT/OT therapy and cognitive evaluation as directed by your caser up.
Please ensure there is adequate assistance for you to carry out your independent activities of daily living while PT/OT/VN are set-up.
You may continue your other home medications as prescribed below.
Please follow-up with your PCP within 1 week.
Please follow-up with neurology within 3-4 weeks.
Please monitor your INR as you are doing at home.
Prescriptions:
New
doxycycline hyclate 100 mg Capsule
100 mg PO Q12 Qty: 24 0RF
cephalexin 500 mg Capsule
500 mg PO QID Qty: 5 0RF
Continued
diltiazem HCl 120 MG capsule,extended release 12 hr
120 mg PO BID
Rx Instructions:
patient can take up to 2 caps in the morning if having trouble controlling rate - this happens rarely
colchicine [Colcrys] 0.6 MG tablet
0.6 mg PO PRN PRN (Reason: gout flare)
levothyroxine [Synthroid] 125 mcg Tablet
125 mcg PO DAILY
Repatha Syringe 140 mg/mL Syringe
140 mg SC Q2W
hydrocodone-acetaminophen 5-325 mg Tablet
1 tab PO DAILYPRN PRN (Reason: back pain)
donepezil [Aricept] 5 mg Tablet
5 mg PO HS
methylprednisolone 4 mg Tablet
4 mg PO DAILY
warfarin [Jantoven] 1 mg Tablet
1.5 mg PO QPM
Rx Instructions:
dispense jantoven not warfarin
acetaminophen 325 mg Tablet
650 mg PO Q4HPRN PRN (Reason: BAXTER, mild pain, or fever >101F) Qty: 0 0RF
tamsulosin 0.4 mg capsule
0.4 mg PO DAILY
docusate sodium 100 mg Capsule
100 mg PO Q48H
peg 400-propylene glycol (PF) 0.4-0.3 % Dropperette
1 drp BOTH EYES QIDPRN PRN (Reason: DRY EYE)
Discontinued
amoxicillin-pot clavulanate 875-125 mg tablet
1 tab PO BID
Rx Instructions:
03/01/25; initiated 02/27 for 7 days
Discharge Orders:
Discharge Patient (As Directed); Ordered 03/04/25
Ordered By: Jose Enrique Gonsales
Discharge Date and Time
Print Language: PANAMANIAN
[2025-03-04 18:07] LABS: Amphetamines, Serum Negative; Barbiturates, Serum Negative; Benzodiazepines, Serum Presumptivepos ng/mL; Buprenorphine, Serum Negative; Cannabinoids, Serum Negative; Cocaine Metabolites, Serum Negative; Methadone, Serum Negative; Methamphetamine, Serum Negative; Opiates, Serum Negative; Oxycodone, Serum Negative; Phencyclidine, Serum Negative
--- NOTE | 2025-03-04 18:14 | PTCARENOTE ---
Patient discharged home. Patient discharged with patients and patients friend, who are staying over to help patient het acclimated back home. Discharge paperwork went over with patient and family at bedside.
[2025-03-06 01:31] LABS: West Nile Virus, IgM, Serum 0.00 IV (<=0.89)
[2025-03-06 20:31] LABS: C.neoformans Antigen Negative (Negative)
[2025-03-07 09:02] LABS: ANA, IgG Reflex to HEp-2 None Detected (None Detected)
== END 2025-03-04 18:21 | disposition home health service (06) | DRG 92 ==
LOC: 2 NORTH 11:34
PROVIDERS: Radiology Diagnostic Radiology; ADMITTING PHYSICIAN General Practice; ATTENDING PHYSICIAN Internal Medicine; CONSULT PHYSICIAN Internal Medicine Cardiovascular Disease; CONSULT PHYSICIAN Psychiatry & Neurology Neurology; CONSULT PHYSICIAN Student in an Organized Health Care Education/Training Program; EMERGENCY PHYSICIAN Emergency Medicine; FAMILY PHYSICIAN Family Medicine
PROC: 009U3ZX Drainage of Spinal Canal, Percutaneous Approach, Diagnostic (ICD-10-PCS; 2025-03-02)
DX: G92.8 Other toxic encephalopathy (principal); E87.1 Hypo-osmolality and hyponatremia; I48.92 Unspecified atrial flutter; I5A Non-ischemic myocardial injury (non-traumatic); L03.115 Cellulitis of right lower limb; E03.9 Hypothyroidism, unspecified; N40.0 Benign prostatic hyperplasia without lower urinary tract symptoms; Z66 Do not resuscitate; F03.90 Unspecified dementia, unspecified severity, without behavioral disturbance, psychotic disturbance, mood disturbance, and anxiety; G93.89 Other specified disorders of brain; N18.31 Chronic kidney disease, stage 3a; I12.9 Hypertensive chronic kidney disease with stage 1 through stage 4 chronic kidney disease, or unspecified chronic kidney disease; I25.10 Atherosclerotic heart disease of native coronary artery without angina pectoris; I25.2 Old myocardial infarction; I45.10 Unspecified right bundle-branch block; I48.0 Paroxysmal atrial fibrillation; I49.3 Ventricular premature depolarization; D63.1 Anemia in chronic kidney disease; I71.20 Thoracic aortic aneurysm, without rupture, unspecified; M35.3 Polymyalgia rheumatica; E78.5 Hyperlipidemia, unspecified; D72.829 Elevated white blood cell count, unspecified; Z11.52 Encounter for screening for COVID-19; Z79.01 Long term (current) use of anticoagulants; Z79.890 Hormone replacement therapy; Z86.73 Personal history of transient ischemic attack (TIA), and cerebral infarction without residual deficits; Z79.899 Other long term (current) drug therapy
CPT/HCPCS: 0042T; 62328; 70450; 70496; 70498; 70551; 71045; 73030; 73221; 74018; 80048; 80053; 80061; 80306; 80307; 81003; 81015; 82040; 82042; 82140; 82533; 82550; 82607; 82728; 82746; 82784; 82945; 83036; 83735; 83873; 83880; 83916; 84157; 84443; 84446; 84484; 85025; 85027; 85610; 85652; 85730; 86038; 86140; 86255; 86376; 86592; 86618; 86788; 87015; 87040; 87070; 87102; 87116; 87205; 87207; 87327; 87468; 87476; 87483; 87484; 87502; 87798; 87811; 89051; 92610; 93005; 94640; 95714; 95812; 97116; 97163; 97167; 97530; 97535; 99291; Q9967

== ENCOUNTER → 2025-03-28 09:13 | Outpatient (REF) | payer MEDICARE, OTHER, SELFPAY | LOC: MRI 3T 09:13 | PROVIDERS: ATTENDING PHYSICIAN Radiology Diagnostic Radiology; FAMILY PHYSICIAN Family Medicine | DX: R19.4 Change in bowel habit (principal); D64.9 Anemia, unspecified | CPT/HCPCS: 72197; A9575 ==